=== PATIENT | male | born 1965 | race Caucasian/White ===

== ENCOUNTER 2017-02-08 14:08 | Emergency (ER) | payer MEDICARE, MEDICAID ==
[~2017-02-08] VITALS: Ht 177.8 cm; Wt 70.3 kg
[~2017-02-08 14:08] MED LIST: /ADVA50050 INH; /FENO48TA PO; /MIRT30TA PO; /MOXI40TA PO; /PANT40TA OR; /PREG100CA PO; ALBU1.25 IN; ALPR1TAB3 OR; COMBIN INH; HALO10TA4 OR; HYDROCODONE/APAP OR; IBUP800T OR; METH-442 PO; NABU-42 PO; NEUR800T PO; OMEP40CA2 PO; PERCOCET PO; PRAV40TA2 PO; PRED10TA2 PO; SERO200T OR; SIMV40TA2 PO; TRIL135C PO; VENL100T OR; VENL225T PO; VENL75TA3 PO; VITAD1000T PO; XANA0.5T PO; spiriva PO; vitamin d; vitamind
[2017-02-08 15:35] LABS: MEAN CORPUSCULAR HEMOGLOBIN 32.1 pg (27.0-33.0); MEAN CORPUSCULAR HGB CONC 35.3 g/dl (32.0-36.5); MEAN CORPUSCULAR VOLUME 91.1 fl (80.0-96.0); RED CELL DISTRIBUTION WIDTH 12.5 % (11.5-14.5); WHITE BLOOD COUNT 9.6 K/mm3 (4.0-10.0)
[2017-02-08 15:44] LABS: ALBUMIN 3.9 GM/DL (3.2-5.2); ALBUMIN/GLOBULIN RATIO 1.39 (1.00-1.93); ALKALINE PHOSPHATASE 112 U/L (45-117); ALT/SGPT 20 U/L (12-78); ANION GAP 7 MEQ/L (8-16); AST/SGOT 10 U/L (15-37); BILIRUBIN,DIRECT 0.2 MG/DL (0.0-0.2); BILIRUBIN,TOTAL 0.5 MG/DL (0.2-1.0); BLOOD UREA NITROGEN 8 MG/DL (7-18); CALCIUM LEVEL 9.1 MG/DL (8.5-10.1); CARBON DIOXIDE LEVEL 33 MEQ/L (21-32); CHLORIDE LEVEL 103 MEQ/L (98-107); CREATININE FOR GFR 0.63 MG/DL (0.70-1.30); GLOMERULAR FILTRATION RATE > 60.0 (>56); GLUCOSE, FASTING 96 MG/DL (70-105); METHADONE URINE NEGATIVE (NEGATIVE); POTASSIUM SERUM 3.9 MEQ/L (3.5-5.1); SODIUM LEVEL 143 MEQ/L (136-145); TOTAL PROTEIN 6.7 GM/DL (6.4-8.2)
[2017-02-08 16:53] VITALS: BP 125/82
== END 2017-02-08 17:19 | disposition home or self-care (01) ==
LOC: M ED 15:24
DX: F43.0 Acute stress reaction (principal); F41.1 Generalized anxiety disorder; I10 Essential (primary) hypertension; J45.909 Unspecified asthma, uncomplicated; R56.9 Unspecified convulsions; E78.00 Pure hypercholesterolemia, unspecified; F31.9 Bipolar disorder, unspecified; F43.10 Post-traumatic stress disorder, unspecified; F60.9 Personality disorder, unspecified; K92.9 Disease of digestive system, unspecified; F17.200 Nicotine dependence, unspecified, uncomplicated; Z79.899 Other long term (current) drug therapy
CPT/HCPCS: 36415; 80048; 80076; 80306; 84443; 85027; 99285; G0480

== ENCOUNTER → 2018-05-05 | Outpatient (CLI) | payer MEDICARE, MEDICAID ==
[2018-05-05 14:54] LABS: ERYTHROCYTE SEDIMENTATION RATE 6 mm/hr (0-20)
[2018-05-05 15:00] LABS: C REACTIVE PROTEIN QUANTITATIV 3.84 MG/DL (0.00-0.30)
== END ==
LOC: M LAB 13:37
DX: M54.41 Lumbago with sciatica, right side (principal)
CPT/HCPCS: 71046

== ENCOUNTER → 2018-05-26 | Outpatient (CLI) | payer MEDICARE, MEDICAID | LOC: M RAD 13:20 | DX: R93.8 Abnormal findings on diagnostic imaging of other specified body structures (principal) | CPT/HCPCS: 74019 ==

== ENCOUNTER → 2018-06-02 | Outpatient (CLI) | payer MEDICARE, MEDICAID ==
[~2018-06-02] MED LIST changes: -/ADVA50050 INH; -/FENO48TA PO; -/MIRT30TA PO; -/MOXI40TA PO; -/PANT40TA OR; -/PREG100CA PO; -ALBU1.25 IN; -ALPR1TAB3 OR; -COMBIN INH; -HALO10TA4 OR; -HYDROCODONE/APAP OR; -IBUP800T OR; +ISOVUE-370 76% 100ML VIAL (Q9967) As Ordered; -METH-442 PO; -NABU-42 PO; -NEUR800T PO; -OMEP40CA2 PO; -PERCOCET PO; -PRAV40TA2 PO; -PRED10TA2 PO; -SERO200T OR; -SIMV40TA2 PO; -TRIL135C PO; -VENL100T OR; -VENL225T PO; -VENL75TA3 PO; -VITAD1000T PO; -XANA0.5T PO; -spiriva PO; -vitamin d; -vitamind
== END ==
LOC: M RAD 09:40
DX: R93.5 Abnormal findings on diagnostic imaging of other abdominal regions, including retroperitoneum (principal); R06.02 Shortness of breath; R91.8 Other nonspecific abnormal finding of lung field; J43.9 Emphysema, unspecified; J84.10 Pulmonary fibrosis, unspecified; R59.0 Localized enlarged lymph nodes
CPT/HCPCS: Q9967

== ENCOUNTER 2018-07-10 10:37 | Day surgery (SDC) | payer MEDICARE, MEDICAID ==
[2018-07-10] MEDS ORDERED: NS 1,000 ML IV (10:45)
[2018-07-10] MEDS ORDERED: KETOROLAC 60 MG/2 ML VIAL (J1885) As Ordered (11:26)
[2018-07-10] MEDS ORDERED: GLYCOPYRROLATE INJ 0.2 MG/ML 2 ML VIAL As Ordered (11:26)
[2018-07-10] MEDS ORDERED: dexameTHASONE 4 MG/ML 1ML VIAL (J1100) As Ordered (11:26)
[2018-07-10] MEDS ORDERED: ONDANSETRON 4MG/2ML VIAL (J2405) As Ordered (11:26)
[2018-07-10] MEDS ORDERED: MIDAZOLAM INJ 2 MG/2 ML VIAL (J2250) As Ordered (11:26)
[2018-07-10] MEDS ORDERED: HYDROmorphone HCL 2 MG/ML 1ML VIAL (J1170) As Ordered (11:26)
[2018-07-10] MEDS ORDERED: PROPOFOL 200 MG/20 ML VIAL As Ordered ×4 (11:26→12:29)
[2018-07-10] MEDS ORDERED: fentaNYL 100 MCG/2 ML INJECTION (J3010) As Ordered (11:26)
[2018-07-10] MEDS ORDERED: NEOSTIGMINE 10 MG/10 ML VIAL (J2710) As Ordered (11:26)
[2018-07-10] MEDS ORDERED: LIDOCAINE 2% INJ 100 MG/5 ML SDV (FOR ANES.) As Ordered ×2 (11:26→12:12)
[2018-07-10] MEDS ORDERED: ALBUTEROL SULFATE 2.5 MG/0.5 ML INH NEB SOLN As Ordered (11:54)
[2018-07-10] MEDS ORDERED: ALBUTEROL SULFATE 2.5 MG/0.5 ML INH NEB SOLN INH (12:00)
== END 2018-07-10 13:26 | disposition home or self-care (01) ==
LOC: M OPP 10:37
DX: T18.2XXA Foreign body in stomach, initial encounter (principal); K29.70 Gastritis, unspecified, without bleeding; K21.9 Gastro-esophageal reflux disease without esophagitis; R12 Heartburn; F41.9 Anxiety disorder, unspecified; F31.9 Bipolar disorder, unspecified; F43.10 Post-traumatic stress disorder, unspecified; F60.9 Personality disorder, unspecified; R56.9 Unspecified convulsions; J45.909 Unspecified asthma, uncomplicated; J44.9 Chronic obstructive pulmonary disease, unspecified; G47.30 Sleep apnea, unspecified; R06.83 Snoring; F17.210 Nicotine dependence, cigarettes, uncomplicated; Z79.899 Other long term (current) drug therapy
CPT/HCPCS: 43247

== ENCOUNTER → 2018-08-18 | Day surgery (SDC) | payer MEDICARE, MEDICAID ==
[~2018-08-18] MED LIST changes: -ISOVUE-370 76% 100ML VIAL (Q9967) As Ordered; +LIDOCAINE 2% INJ 100 MG/5 ML SDV (FOR ANES.) As Ordered; +NS 1,000 ML IV; +PROPOFOL 200 MG/20 ML VIAL As Ordered
== END | disposition home or self-care (01) ==
LOC: M OPP 08:26
DX: Z12.11 Encounter for screening for malignant neoplasm of colon (principal); Z53.9 Procedure and treatment not carried out, unspecified reason

== ENCOUNTER → 2019-02-20 | Outpatient (CLI) | payer MEDICARE, MEDICAID ==
[~2019-02-20] MED LIST changes: +ADVA1AER2 INH; +ALBU1.25 IN; +ALPR1TAB3 OR; +ALPR2TAB3 PO; +AVEL1TAB2 PO; +BANO25TA PO; +COMBIN INH; +FLOM0.4C39 PO; +HALO10TA4 OR; +HALO5TA PO; +HYDR50TA70 PO; +HYDRO50TAB PO; +HYDROCODONE/APAP OR; +IBUP800T OR; -LIDOCAINE 2% INJ 100 MG/5 ML SDV (FOR ANES.) As Ordered; +LYRI100C PO; +METH-442 PO; +MIRT1TAB21 PO; +NABU-42 PO; +NEUR800T PO; -NS 1,000 ML IV; +OMEP-221 PO; +OMEP40CA2 PO; +OXYC1TAB23 PO; +PRAV40TA2 PO; +PRED10TA2 PO; +PROAAER10 INH; -PROPOFOL 200 MG/20 ML VIAL As Ordered; +PROT1TAB2 OR; +QUET1TAB9 PO; +SERO200T OR; +SIMV40TA2 PO; +TIOT18INH INH; +TRAM50TA2 PO; +TREL1AER IN; +TRIC1TAB PO; +TRIL135C PO; +VENL-142 PO; +VENL100T OR; +VENL150C43 PO; +VENL225T25 PO; +VITA100066 PO; +VITAD1000T PO; +XANA0.5T PO; +spiriva PO; +vitamin d; +vitamind
[2019-02-20 15:56] LABS: CHOLESTEROL LEVEL 207 MG/DL (<200); CHOLESTEROL RISK RATIO 4.224 (<5); CPK CREATINE PHOSPHOKINASE 70 U/L (39-308); HDL CHOLESTEROL 49 MG/DL (>40); LDL CHOLESTEROL 131 MG/DL (<100); MB/CK RELATIVE INDEX 3.43 (< OR =4); NON-HDL-C 158 MG/DL; TRIGLYCERIDES LEVEL 137 MG/DL (<150); TROPONIN I < 0.02 NG/ML (< 0.10)
[2019-02-20 15:57] LABS: HEMOGLOBIN A1c 5.7 %
== END ==
LOC: M LAB 15:03
PROVIDERS: ATTEND Internal Medicine
DX: R07.89 Other chest pain (principal); N40.1 Benign prostatic hyperplasia with lower urinary tract symptoms; R73.03 Prediabetes
CPT/HCPCS: 36415; 80061; 82550; 82553; 83036; 84484; 93005; G0463

== ENCOUNTER → 2019-06-26 | Outpatient (REF) | payer MEDICARE, MEDICAID ==
[~2019-06-26] MED LIST changes: +HYDR1TAB33 PO; -HYDRO50TAB PO; -QUET1TAB9 PO; +QUET200T2 PO
[2019-06-26 17:37] LABS: FREE T4 1.1 NG/DL (0.76-1.46); THYROID STIMULATING HORMONE 2.9 uIU/ML (0.358-3.740)
== END ==
LOC: M SFHCPLAZ 13:58
DX: I24.9 Acute ischemic heart disease, unspecified (principal); R73.03 Prediabetes
CPT/HCPCS: 36415; 84439; 84443; G0463

== ENCOUNTER 2021-05-25 11:02 | Inpatient (IN) | payer MEDICARE, MEDICAID ==
[~2021-05-25] VITALS: Ht 175.3 cm; Wt 58.5 kg
[~2021-05-25 11:02] MED LIST changes: -TREL1AER IN; +TREL1AER INH
[2021-05-25] MEDS ORDERED: methylPREDNISolone 125MG 2ML VIAL IV ONE (11:30)
--- NOTE | 2021-05-25 11:30 | REP ---
INDICATION: DYSPNEA/COUGH COMPARISON: 05/05/2018 TECHNIQUE: Portable AP view of the chest FINDINGS: Diffuse advanced COPD/emphysematous changes and scattered fibrosis/scarring are noted and small superimposed areas of basilar airspace disease are suspected. No definite effusion. No pneumothorax. IMPRESSION: Progressive advanced chronic changes with suspected superimposed small bibasilar airspace disease. <Electronically signed by Geo Stiles > 05/25/21 [id number]
[2021-05-25] MEDS: COMBIVENT RESPIMAT 100-20MCG INHALER 4GM INH SCH ×4 (11:44→20:06)
[2021-05-25 11:45] LABS: VENOUS HCO3 26.9 MEQ/L (23.0-27.0); VENOUS O2 SATURATION 86.7 % (60.0-80.0); VENOUS PARTIAL PRESSURE CO2 46.7 mmHg (38.0-50.0); VENOUS PARTIAL PRESSURE O2 53.2 mmHg (30.0-50.0); VENOUS PH 7.378 UNITS (7.330-7.430); VENOUS STANDARD HCO3 24.9 MEQ/L; VENOUS TOTAL CO2 28.3 MEQ/L (24.0-28.0)
[2021-05-25 11:49] LABS: BASO % 0.1 % (0.0-1.0); HEMATOCRIT 53.2 % (42.0-52.0); HEMOGLOBIN 18.2 g/dl (13.5-17.5); LYMPH # 0.8 10^3/uL (1.5-5.0); LYMPH % 4.9 % (24.0-44.0); MEAN CORPUSCULAR HEMOGLOBIN 29.2 pg (27.0-33.0); MEAN CORPUSCULAR HGB CONC 34.2 g/dl (32.0-36.5); MEAN CORPUSCULAR VOLUME 85.3 fl (80.0-96.0); MONO # 1.8 10^3/uL (0.0-0.8); MONO % 10.9 % (2.0-8.0); NEUTROPHILS # 13.9 10^3/uL (1.5-8.5); NEUTROPHILS % 83.6 % (36.0-66.0); PLATELET COUNT, AUTOMATED 257 10^3/uL (150-450); RED BLOOD COUNT 6.24 10^6/uL (4.30-6.10)
[2021-05-25 11:50] LABS: WHITE BLOOD COUNT 16.7 10^3/uL (4.0-10.0)
[2021-05-25 12:25] LABS: ALBUMIN 3.5 GM/DL (3.2-5.2); BILIRUBIN,DIRECT 0.1 MG/DL (0.0-0.2); BILIRUBIN,TOTAL 0.4 MG/DL (0.2-1.0); THYROID STIMULATING HORMONE 0.912 uIU/ML (0.358-3.740); TOTAL PROTEIN 6.8 GM/DL (6.4-8.2)
[2021-05-25] MEDS ORDERED: ISOVUE-370 76% 100ML VIAL As Ordered ONE (12:42)
[2021-05-25 13:20] LABS: RSV AMPLIFICATION NEGATIVE (NEGATIVE)
--- NOTE | 2021-05-25 14:18 | REP ---
INDICATION: hypoxia COMPARISON: Multiple the latest 06/02/2018 a standard contrast-enhanced chest CT TECHNIQUE: CT angiography of the chest after the intravenous administration of 75 cc of Isovue 370. Attention pulmonary arteries. FINDINGS: There is excellent visualization of the pulmonary arterial vasculature. There are no focal filling defects present that would be considered consistent with acute pulmonary emboli. There are no pleural or pericardial effusions. There is mediastinal and hilar adenopathy which appears increased. The right infrahilar node seen previously to measure 1.3 cm today measures 2.5 cm. Left hilar adenopathy has also increased along with increased subcarinal adenopathy. The imaged upper abdomen and imaged osseous structures appear unchanged. The thoracic aorta appears stable. Evaluation of the lung call again shows advanced emphysematous changes. There are parenchymal bulla and pleural blebs seen with new patchy asymmetric parenchymal opacities particularly in the lung bases and right greater than left. There are multiple pulmonary nodules which appear stable, however, the new asymmetric parenchymal opacities have obscured some of the previously recognized somewhat spiculated nodules and certainly could obscure new abnormal nodules. IMPRESSION: 1. New asymmetric lung field opacities superimposed upon chronic changes as described above and suspicious for infectious etiology. Certainly, neoplastic change cannot be ruled out. 2. Advanced chronic lung field changes as described above. 3. Increased adenopathy as described above. 4. There is no evidence of a pulmonary embolus. 5. Other findings as described above. <Electronically signed by Manan Chahal > 05/25/21 [id number]
[2021-05-25] MEDS ORDERED: cefTRIAXone SOD 1 GM in D5W MINI-BAG PLUS 50 ML IV ONE (14:20)
[2021-05-25] MEDS ORDERED: AZITHROMYCIN INJ 500 MG, VIAL MATE ADAPTER 1 EACH in NS 250 ML IV ONE (14:30)
[2021-05-25] MEDS ORDERED: COMBAER6 INH (14:34)
[2021-05-25] MEDS ORDERED: ATRO0.063 INH (14:34)
[2021-05-25] MEDS ORDERED: ACETAMINOPHEN TAB 650MG DOSE (2X325MG) PO PRN (16:55)
[2021-05-25] MEDS ORDERED: MOM 30ML SUSPENSION UDC PO PRN (16:55)
[2021-05-25] MEDS ORDERED: hydrOXYzine 50 MG TAB PO PRN (17:00)
[2021-05-25] MEDS ORDERED: IPRATROPIUM HFA INHALER 12.9 GRAMS (ATROVENT HFA) INH SCH (17:00)
[2021-05-25] MEDS ORDERED: ALBUTEROL 90 MCG/ACT 8GM HFA INHALER INH PRN (17:00)
--- NOTE | 2021-05-25 17:42 | HPEPDOC ---
[facility] Medical History & Physical Date of Admission May 25, 2021 Date of Service: May 25, 2021 History and Physical CHIEF COMPLAINT: Shortness of breath HISTORY OF PRESENT ILLNESS: This 65-year-old male with a past medical history of COPD not on home O2, AHMET, hyperlipidemia, myocardial infarction, polysubstance abuse, presented to the ER with acute worsening of shortness of breath and wheezing. Patient was found to be hypoxic and required 7L via NC to maintain saturation above 90%. Found to have WBC 16.7. Hgb 18.2, hct 53.2. CXR c/w advanced COPD changes and suspected pneumonia. CT imaging findings concerning for infection in addition to malignancy, based on increased hilar adenopathy (increased R infrahilar LN 1.3 to 2.5cm), as well as new parenchymal opacities/spiculated nodules. Patient received 125 mg IV solumedrol, 1g IV ceftriaxone, 500 mg IV azithromycin and combivent. Patient states that he is uncomfortable being in the hospital and is asking if he can leave tomorrow. Patient denies any chest pain, palpitations, nausea, vomiting, or diarrhea. She reports approximately 10 pound weight loss in the last 2 months. Patient will be admitted to hospitalist service and to PCU for the management of acute COPD exacerbation secondary to community-acquired pneumonia. PAST MEDICAL HISTORY: COPD, not O2 dependent, GOLD IV AHMET non compliant with CPAP CAD Cocaine and gabapenting abuse (snorting) Lumbago with spinal stenosis PTSD Bipolar disorder GERD Anxiety Nicotine dependence PAST SURGICAL HISTORY: Appendectomy Dental extraction Umbilical hernia repair 01/2016 SOCIAL HISTORY: Long standing smoker 50+ years Patient denies etoh use Patient denies illicit drug use FAMILY HISTORY: Reviewed with patient, no relevant family history provided ALLERGIES: Please see below. REVIEW OF SYSTEMS: 10 point ROS conducted, relevant findings are noted in the HPI HOME MEDICATIONS: Please see below. PHYSICAL EXAMINATION: VITAL SIGNS: please see below General: Very thin, cachectic and emaciated-looking man acutely short of breath, unable to speak in full sentences HEENT: PERRLA, EOMI, sclerae clear Neck: supple, normal ROM, no JVD Respiratory: lungs CTAB, no wheeze, no rales, no crackles CVS: RRR, normal S1, S2, no murmurs Abdo: soft, no masses, no hepatosplenomegaly, BS+, no rebound tenderness Extremities: no edema, pulses 2+ MSK: no joint deformities, normal ROM Neuro: no focal neuro deficits, moving all 4 extremities, CN2-12 intact. Strength 5/5 in all 4 extremities. No nystagmus. Psych: calm, cooperative, AAO x 3 LABORATORY DATA: See below. IMAGING: CTA chest (05/25/21): 1. New asymmetric lung field opacities superimposed upon chronic changes as described above and suspicious for infectious etiology. Certainly, neoplastic change cannot be ruled out. 2. Advanced chronic lung field changes as described above. 3. Increased adenopathy as described above. 4. There is no evidence of a pulmonary embolus. 5. Other findings as described above. CXR (05/25/21): FINDINGS: Diffuse advanced COPD/emphysematous changes and scattered fibrosis/scarring are noted and small superimposed areas of basilar airspace disease are suspected. No definite effusion. No pneumothorax. IMPRESSION: Progressive advanced chronic changes with suspected superimposed small bibasilar airspace disease. MICROBIOLOGY: Please see below. ASSESSMENT: This 65-year-old male with a past medical history of COPD not on home O2, AHMET, hyperlipidemia, myocardial infarction, polysubstance abuse, presented to the ER with acute worsening of shortness of breath and wheezing. Patient was found to be hypoxic and required 7L via NC to maintain saturation above 90%. Found to have WBC 16.7. Hgb 18.2, hct 53.2. CXR c/w advanced COPD changes and suspected pneumonia. CT imaging findings concerning for infection in addition to malignancy, based on increased hilar adenopathy (increased R infrahilar LN 1.3 to 2.5cm), as well as new parenchymal opacities/spiculated nodules. Patient received 125 mg IV solumedrol, 1g IV ceftriaxone, 500 mg IV azithromycin and combivent. Patient states that he is uncomfortable being in the hospital and is asking if he can leave tomorrow. Patient denies any chest pain, palpitations, nausea, vomiting, or diarrhea. She reports approximately 10 pound weight loss in the last 2 months. Patient will be admitted to hospitalist service and to PCU for the management of acute COPD exacerbation secondary to community-acquired pneumonia. . PLAN: Acute hypoxic respiratory failure 2/2 acute COPD exacerbation and community acquired pneumonia - hypoxic, 7L to maintain Sat > 90%. Not O2 dependent at home. Not retaining CO2 on VBG - s/p solumedrol, ceftriaxone, azithromycin, combivent in ER - resume home inhalers - c/w solumedrol 60 mg IV q8h - c/w ceftriaxone, azithromycin - check sputum culture, legionella ag, strep pneumo ag - f/u blood cultures Polycythemia - takes ASA - check serum EPO and SUMI mutations Hx of CAD? - resume asa, and plavix - resume statin - Had a stress test in 05/2019, per PCP note negative for RWMA Suspected lung malignancy - patient is cachectic Protein calorie malnutrition - BMI 17.5 - dietary eval ordered Dispo: admission expect to last > 2 midnights Vital Signs Vital Signs Date Time Temp Pulse Resp B/P (MAP) Pulse Ox O2 Delivery O2 Flow Rate FiO2 05/25/21 15:15 84 24 140/89 (106) 89 Nasal Cannula 7.0 05/25/21 12:30 35 05/25/21 11:02 99.1 Laboratory Data Labs 24H Laboratory Tests 2 05/25/21 11:35: Immature Granulocyte % (Auto) 0.5, Neutrophils (%) (Auto) 83.6H, Lymphocytes (%) (Auto) 4.9L, Monocytes (%) (Auto) 10.9H, Eosinophils (%) (Auto) 0.0, Basophils (%) (Auto) 0.1, Neutrophils # (Auto) 13.9H, Lymphocytes # (Auto) 0.8L, Monocytes # (Auto) 1.8H, Eosinophils # (Auto) 0.0, Basophils # (Auto) 0.0, Nucleated Red Blood Cells % (auto) 0.0, Blood Gas Bicarbonate Standard 24.9, Venous Blood pH 7.378, Venous Blood Partial Pressure CO2 46.7, Venous Blood Partial Pressure O2 53.2H, Venous Blood Total Carbon Dioxide 28.3H, Venous Blood HCO3 26.9, Venous Blood Oxygen Saturation 86.7H, Venous Blood Base Excess 1.0, Lactic Acid Level 1.7, Total Bilirubin 0.4, Direct Bilirubin 0.1, Aspartate Amino Transf (AST/SGOT) 52H, Alanine Aminotransferase (ALT/SGPT) 50, Alkaline Phosphatase 92, TT-Pkb-Z-Type Natriuretic Peptide 1460H, Total Protein 6.8, Albumin 3.5, Albumin/Globulin Ratio 1.1, Thyroid Stimulating Hormone (TSH) 0.912, Coronavirus (COVID-19)(PCR) NEGATIVE, Influenza Type A (RT-PCR) NEGATIVE, Influenza Type B (RT-PCR) NEGATIVE, Respiratory Syncytial Virus (PCR) NEGATIVE 05/25/21 11:46: POC Glucose (Misc Panel) 120H, POC Sodium (Misc Panel) 134L, POC Potassium (Misc Panel) 4.3, POC Chloride (Misc Panel) 95L, POC Total CO2 (Misc Panel) 25.0, POC Blood Urea Nitrogen (Misc Panel 17, POC Ionized Calcium (Misc Panel) 4.5, POC Creatinine (Misc Panel) 0.6, POC Hematocrit (Misc Panel) 55.0H 05/25/21 11:50: POC Troponin I (Misc) 0.01 CBC/BMP Laboratory Tests 05/25/21 11:35 Microbiology Microbiology 05/25/21 Blood Culture, Received Pending 05/25/21 Blood Culture, Received Pending Home Medications Scheduled Fluticasone/Umeclidin/Vilanter (Trelegy Ellipta 100-62.5-25) 1 Aer Aer, 1 PUFF INH DAILY Haloperidol (Haloperidol) 5 Mg Tab, 5 MG PO DAILY Ipratropium [place] (Atrovent Hfa) 12.9 Gm Hfa.aer.ad, 2 PUFF INH QID Ipratropium/Albuterol Sulfate (Combivent Respimat 20-100 Mcg) 4 Gm Mist.inhal, 1 PUFF INH Q6H Venlafaxine HCl (Venlafaxine HCl ER) 150 Mg Cap, 300 MG PO DAILY Scheduled PRN Albuterol Sulfate (Proair Hfa) 108 Mcg/Act Aer, 2 PUFFS INH Q4H PRN for SHORTN ESS OF BREATH Hydroxyzine HCl (Hydroxyzine HCl) 50 Mg Tab, 100 MG PO QID PRN for ANXIETY Allergies Coded Allergies: No Known Allergies (Verified , 07/09/18) A-FIB/CHADSVASC A-FIB History Current/History of A-Fib/PAF?: No Current PO Anticoag Therapy: No INEZ MOE MD May 25, 2021 17:42
[2021-05-25] MEDS: SYMBICORT 80/4.5MCG INHALER 6GM INH SCH ×2 (19:54→20:00)
[2021-05-25] MEDS: methylPREDNISolone 125MG 2ML VIAL IV SCH (20:00)
[2021-05-25] MEDS: DOCUSATE SODIUM 100MG CAPSULE PO SCH (20:19)
[2021-05-25 21:00] VITALS: BP 128/86
[2021-05-25 22:00] VITALS: BP 128/86
[2021-05-26] VITALS (10 sets, daily range): BP systolic 123–148; BP diastolic 80–88; O2SAT 88–94
[2021-05-26] MEDS: COMBIVENT RESPIMAT 100-20MCG INHALER 4GM INH SCH ×2 (04:33→08:00)
[2021-05-26 04:36] LABS: BASO % 0.2 % (0.0-1.0); HEMATOCRIT 49.2 % (42.0-52.0); HEMOGLOBIN 16.9 g/dl (13.5-17.5); LYMPH # 0.7 10^3/uL (1.5-5.0); LYMPH % 5.4 % (24.0-44.0); MEAN CORPUSCULAR HEMOGLOBIN 29.3 pg (27.0-33.0); MEAN CORPUSCULAR HGB CONC 34.3 g/dl (32.0-36.5); MEAN CORPUSCULAR VOLUME 85.4 fl (80.0-96.0); MONO % 8.3 % (2.0-8.0); NEUTROPHILS # 10.6 10^3/uL (1.5-8.5); NEUTROPHILS % 85.7 % (36.0-66.0); PLATELET COUNT, AUTOMATED 238 10^3/uL (150-450); RED BLOOD COUNT 5.76 10^6/uL (4.30-6.10); WHITE BLOOD COUNT 12.3 10^3/uL (4.0-10.0)
[2021-05-26 05:10] LABS: ALT/SGPT 46 U/L (12-78); BILIRUBIN,TOTAL 0.3 MG/DL (0.2-1.0); BLOOD UREA NITROGEN 12 MG/DL (7-18); CALCIUM LEVEL 8.6 MG/DL (8.5-10.1); CARBON DIOXIDE LEVEL 32 MEQ/L (21-32); CHLORIDE LEVEL 98 MEQ/L (98-107); GLOMERULAR FILTRATION RATE > 60.0 (>56); GLUCOSE, FASTING 141 MG/DL (70-100); MAGNESIUM LEVEL 1.9 MG/DL (1.8-2.4); POTASSIUM SERUM 4.1 MEQ/L (3.5-5.1); SODIUM LEVEL 133 MEQ/L (136-145); TOTAL PROTEIN 6.1 GM/DL (6.4-8.2)
[2021-05-26] MEDS: methylPREDNISolone 125MG 2ML VIAL IV SCH ×3 (05:18→20:59)
[2021-05-26] MEDS: SYMBICORT 80/4.5MCG INHALER 6GM INH SCH (08:10)
[2021-05-26 09:38] LABS: ABG BASE EXCESS 8.5 (-2.0-2.0); ABG HCO3 34.7 MEQ/L (22.0-26.0); ABG O2 SATURATION 93.5 % (95.0-99.0); ABG PARTIAL PRESSURE CO2 51.8 mmHg (35.0-45.0); ABG PARTIAL PRESSURE O2 65.7 mmHg (75.0-100.0); ABG STANDARD HCO3 32.2 MEQ/L (22.0-26.0); ABG TOTAL CO2 36.3 MEQ/L (22.0-29.0); ABG pH (ARTERIAL) 7.444 UNITS (7.350-7.450)
--- NOTE | 2021-05-26 09:51 | REP ---
INDICATION: hypoxia. COMPARISON: 05/25/2021. TECHNIQUE: Single portable AP view of the chest was performed. FINDINGS: There is increased patchy parenchymal opacity in the right lung base compared to the prior study representing mildly increased atelectasis or infiltrate. Mild interstitial and alveolar opacities in the left lung base are stable. The heart is normal in size. The mediastinal silhouette is unchanged. IMPRESSION: Mild increase in right base atelectasis/infiltrate. <Electronically signed by Cristóbal Lopez > 05/26/21 0998
[2021-05-26] MEDS: haloperidoL 5 MG TAB PO SCH (10:56)
[2021-05-26] MEDS: DOCUSATE SODIUM 100MG CAPSULE PO SCH ×2 (10:56→21:00)
[2021-05-26] MEDS: VENLAFAXINE **XR** 75MG CAPSULE PO SCH (10:56)
[2021-05-26] MEDS: ENOXAPARIN 40MG/0.4ML SYRINGE (J1650 PER 10MG) SC SCH (10:57)
[2021-05-26] MEDS: IPRATROPIUM 0.5MG/ALBUTEROL 2.5MG INH SOL UD 3ML (DUONEB) NEB SCH ×3 (13:53→20:24)
--- NOTE | 2021-05-26 13:53 | CR ---
PULMONARY CONSULTATION DATE: 05/26/2021 REASON FOR CONSULTATION: Hypoxia. HISTORY OF PRESENT ILLNESS: This is a 55-year-old cachetic looking elderly gentleman who presents to [facility] ER with a 2.5 month history of worsening cough productive of green sputum. He states he attributed this to cutting back on smoking. He states he has been taking more puffs from his inhalers and has tried Robitussin [id number], none of which have alleviated his cough. He states that he also feels some chest congestion. The patient states that he has also noticed some progressive shortness of breath that started in April. He states that at his baseline he is able to do all ADLs without any shortness of breath, however he is now having progressing shortness of breath with minimal exertion. REVIEW OF SYSTEMS: GENERAL: Patient does have profuse sweating at night but this is not new onset. Denies any fatigue, fever or shaking chills. He states he has had about 10 to 15 pounds of unintentional weight loss since April. HEENT: No changes in vision. No epistaxis. No difficulty swallowing, tooth abscess or neck discomfort currently. Denied any dysphagia. Patient states that he has a runny nose. CARDIAC: No chest pain or palpitations. Patient does not report any increased edema in his extremities. PULMONARY: Patient does have shortness of breath with minimal exertion as well as a cough productive of white sputum. Denies hemoptysis. GI/: Denies any vomiting, diarrhea or blood in stool. No burning or pain on urination. NEURO/PSYCH: Patient does have a history of mental health issues but his mood is appropriate on exam. Patient denies any history of seizures or tremors. No thoughts of suicidal ideation or thoughts of self-harm. PAST MEDICAL HISTORY: 1. COPD, not oxygen dependent, GOLD 4. 2. AHMET, noncompliant with CPAP. 3. Coronary artery disease. 4. Lumbago with spinal stenosis. 5. PTSD. 6. Bipolar. 7. GERD. 8. Anxiety. 9. Nicotine dependence. PAST SURGICAL HISTORY: 1. Appendectomy. 2. Dental extraction. 3. Umbilical hernia repair in 2016. SOCIAL HISTORY: Patient has smoked since the age of 7, 1 to 1 1/2 packs per day. Patient has recently tried to cut down this past November from 1 1/2 pack to now 1/2 pack per day. Patient states that he quit drinking alcohol two years ago but prior to that he drank about six packs of beer on a weekly basis. Patient denied any use of illicit drugs. He does smoke about 1 gram of marijuana daily. ENVIRONMENTAL HISTORY: Patient worked as an hand ironer for three years and was in the [employer] business for about 30 years. Patient had extensive exposure to toxic fumes and chemicals. Currently, the patient is unemployed. FAMILY HISTORY: Unable to obtain due to patient's relationship with parents. PHYSICAL EXAMINATION: VITAL SIGNS: Temperature 97.0, pulse is 74, respirations 20, blood pressure is 141/87, O2 saturation 91% on 10 liters of high flow nasal cannula. GENERAL: Patient is alert, awake and oriented. He is cachectic looking. His mood and affect are appropriate. His speech is clear, able to speak in full sentences without accessory muscle use or retractions. HEENT: Sclera clear, anicteric. Pupils equal and reactive to light. Mucous membranes are moist. No lesions seen. Tongue is midline. NECK/LYMPH: Supple neck. No tracheal deviation or mass. No evidence of bruits. Unable to palpate lymphadenopathy. Unable to palpate thyromegaly. CARDIAC: Normal S1 and S2. No significant audible murmurs, rubs or gallops. No evidence of elevated JVP. No peripheral edema. PULMONARY: Patient does have decreased breath sounds. There is egophony appreciated in the bilateral upper lobes, increased tactile fremitus and dullness to percussion at bilateral lung bases. He does have expiratory wheezing throughout. ABDOMEN: Soft, nontender and nondistended. No hepatosplenomegaly, masses, hernias palpated. EXTREMITIES: No cyanosis, bruising or calf tenderness. He does have clubbing in his nails. ASSESSMENT AND PLAN: This is a 55-year-old elderly gentleman who presents to [facility] ER with a 2.5 month history of worsening cough productive of green sputum. He also started to notice progressive shortness of breath since April. In the ER, he was hypoxic and required 7 liters through via nasal cannula to maintain his oxygen saturation above 90%. He was found to have leukocytosis as well as elevated hemoglobin and hematocrit likely in the setting of hypoxemia. His chest x-ray did show advanced airway disease and is suspicious for pneumonia. His CT imaging of his chest showed increased hilar adenopathy most prominent on the right side measuring up to 2.5 cm as well as spiculated nodules. The patient received a loading dose of Solu-Medrol and was started on Rocephin and Zithromax as well as IV Solumedrol IV q. 8 by the Hospitalist. Pulmonary was consulted this morning due to persistent hypoxia and suspicious nodules found on CT. 1. Acute on chronic COPD exacerbation. Pt has severe bullous emphysema GOLD IV in 2018 (currently non oxygen dependent). He started to have a worsening cough for the past 2.5 months with worsening progressive shortness of breath with minimal exertion in the last month. The cough is productive of thick green sputum up until yesterday. I will increase his symbicort to a higher dose and schedule him for duonebs q4h. Patient would benefit from spiriva for mcc maintenace of his COPD to reduce exacerbtions. 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 2. Pneumonia- New patchy parenchymal opacities in lung bases with mediastinal and hilar adenopathy which appear increased in size, likely reactive due to an infectious process/pneumonia; however, cannot rule out malignancy given his hx of long standing tobacco abuse. Agree with continuing antibiotics. White count is improving. Will wait for sputum grain stain and cx to result for narrowing down antibiotics. Will order a mucolytic mucociliary clearance. 3. Abnormal imaging: Chest CT angio shows multiple pulmonary nodules which appear stable, however, the new asymmetric parenchymal opacities have obscured some of the previously recognized somewhat spiculated nodules. His advanced airspace disease with bullous and blebs may also be obscuring new abnormal nodules. The last time patient followed up with pulmonary was back in 2018. Other potential etiologies given his long standing smoking history and noncompliance with outpatient follow up or getting re- scanned to follow up on his pulmonary nodules, is that this could be potential neoplastic process. If patient is willing, he would benefit from outpatient follow up and to establish care again. 4. Tobacco dependence. Smoking cessation has been discussed with the patient. The patient states that he has been cutting down and currently smoking 1/2 pack, however at this point he is not ready to quit cold turkey. 5. DVT prophylaxis with Lovenox. 6. Code status: Full. Dr. Napier; I saw the patient and participated in the burgess elements of the evaluation and the management decision process. He is known to our practice having been seen in past for his lung disease and abnormal imaging findings. He has declined workup and follow up with us and as of his last note his COPD was very severe (2018, GOLD 4). Imaging findings are some old some new and the management plan is reasonable. Recovery is likely to be protracted and he will likely remain dependent on supplimental oxygen going forward. Given the extent of underlying lung disease his prognosis is poor. JENNIFER
[2021-05-26] MEDS: TIOTROPIUM INHALER/CAPSULE (SPIRIVA) INH SCH (14:47)
--- NOTE | 2021-05-26 16:34 | ECGEPIP ---
[facility] - ED Test Date: 2021-05-25 Pat Name: CHAPARRITA OVIEDO Department: Room: - Gender: Male [employer]: : 1965 Requested By: Ana Luisa Power Order Number: [id number] Reading MD: Bhanu Solares Measurements Intervals [place]ison Rate: 92 P: 75 MD: 120 QRS: -42 QRSD: 84 T: 50 QT: 338 QTc: 417 Interpretive Statements Normal sinus rhythm Left axis deviation Comparison tracing not on file Electronically Signed on 05-26-2021 16:34:24 EDT by Bhanu Solares
[2021-05-26] MEDS: cefTRIAXone SOD 1 GM in D5W MINI-BAG PLUS 50 ML IV SCH (17:53)
[2021-05-26] MEDS: SYMBICORT 160/4.5MCG INHALER 6GM INH SCH (20:23)
[2021-05-26] MEDS: AZITHROMYCIN INJ 500 MG, VIAL MATE ADAPTER 1 EACH in NS 250 ML IV SCH (21:00)
[2021-05-26] MEDS: guaiFENesin ER 600 MG TAB PO SCH (21:00)
--- NOTE | 2021-05-26 21:32 | IPNPDOC ---
Date Seen The patient was seen on 05/26/21. Progress Note SUBJECTIVE: seen bedside. On venti mask FiO2 50%. Attempted vapotherm due to hypoxia, has deviated nasal septum and cannot sustain HF. Cough, productive of green sputum. OBJECTIVE PHYSICAL EXAMINATION: VITAL SIGNS: please see below General: Very thin, cachectic and emaciated-looking man acutely short of breath, unable to speak in full sentences HEENT: PERRLA, EOMI, sclerae clear Neck: supple, normal ROM, no JVD Respiratory: lungs CTAB, no wheeze, no rales, no crackles CVS: RRR, normal S1, S2, no murmurs Abdo: soft, no masses, no hepatosplenomegaly, BS+, no rebound tenderness Extremities: no edema, pulses 2+ MSK: no joint deformities, normal ROM Neuro: no focal neuro deficits, moving all 4 extremities, CN2-12 intact. Strength 5/5 in all 4 extremities. No nystagmus. Psych: calm, cooperative, AAO x 3 LABORATORY DATA, IMAGING STUDIES, MICROBIOLOGY: Please see below. Echocardiogram: pending report from 05/26/21 DVT prophylaxis ordered?: SCDs. TEDs. Lovenox ASSESSMENT: This 65-year-old male with a past medical history of COPD not on home O2, AHMET, hyperlipidemia, myocardial infarction, polysubstance abuse, presented to the ER with acute worsening of shortness of breath and wheezing. Patient was found to be hypoxic and required 7L via NC to maintain saturation above 90%. Found to have WBC 16.7. Hgb 18.2, hct 53.2. CXR c/w advanced COPD changes and suspected pneumonia. CT imaging findings concerning for infection in addition to malignancy, based on increased hilar adenopathy (increased R infrahilar LN 1.3 to 2.5cm), as well as new parenchymal opacities/spiculated nodules. Patient received 125 mg IV solumedrol, 1g IV ceftriaxone, 500 mg IV azithromycin and combivent. Patient states that he is uncomfortable being in the hospital and is asking if he can leave tomorrow. Patient denies any chest pain, palpitations, nausea, vomiting, or diarrhea. She reports approximately 10 pound weight loss in the last 2 months. Patient will be admitted to hospitalist service and to PCU for the management of acute COPD exacerbation secondary to community-acquired pneumonia. . PLAN: Acute hypoxic respiratory failure 2/2 acute COPD exacerbation and community acquired pneumonia Severe bullous emphysema GOLD IV - hypoxic, 7L to maintain Sat > 90%. Not O2 dependent at home. Not retaining CO2 on VBG - s/p solumedrol, ceftriaxone, azithromycin, combivent in ER - resume home inhalers - c/w solumedrol 60 mg IV q8h - c/w ceftriaxone, azithromycin - check sputum culture, legionella ag, strep pneumo ag - f/u blood cultures - pulmonary consult placed due to persistent desaturation - symbycort, spirva Polycythemia - takes ASA - check serum EPO and SUMI mutations - resolved Hx of CAD? - resume asa, and plavix - resume statin - Had a stress test in 05/2019, per PCP note negative for RWMA Suspected lung malignancy - patient is cachectic - per Dr. Chatterjee, at this stage cannot r/o malignancy - suspicious nodules on CTA - will need outpatient follow up in pulm clinic - PET CT outpatient. Protein calorie malnutrition - BMI 17.5 - dietary eval ordered Dispo: admission expect to last > 2 midnights VS, I&O, 24H, Fishbone Vital Signs/I&O Vital Signs Date Time Temp Pulse Resp B/P (MAP) Pulse Ox O2 Delivery O2 Flow Rate FiO2 05/26/21 20:00 97.6 93 28 148/84 (105) 89 High Flow Cannula 15.0 05/26/21 12:00 50 I&O- Last 24 Hours up to 6 AM 05/26/21 06:00 Intake Total 1000 ml Output Total 1100 ml Balance -100 ml Laboratory Data 24H LABS Laboratory Tests 2 05/26/21 01:30: 05/26/21 04:14: Immature Granulocyte % (Auto) 0.4, Neutrophils (%) (Auto) 85.7H, Lymphocytes (%) (Auto) 5.4L, Monocytes (%) (Auto) 8.3H, Eosinophils (%) (Auto) 0.0, Basophils (%) (Auto) 0.2, Neutrophils # (Auto) 10.6H, Lymphocytes # (Auto) 0.7L, Monocytes # (Auto) 1.0H, Eosinophils # (Auto) 0.0, Basophils # (Auto) 0.0, Nucleated Red Blood Cells % (auto) 0.0, Anion Gap 3L, Glomerular Filtration Rate > 60.0, Calcium Level 8.6, Magnesium Level 1.9, Total Bilirubin 0.3, Aspartate Amino Transf (AST/SGOT) 32, Alanine Aminotransferase (ALT/SGPT) 46, Alkaline Phosphatase 78, Total Protein 6.1L, Albumin 3.0L, Albumin/Globulin Ratio 1.0 05/26/21 09:21: Blood Gas Bicarbonate Standard 32.2H, Arterial Blood pH 7.444, Arterial Blood Partial Pressure CO2 51.8H, Arterial Blood Partial Pressure O2 65.7L, Arterial Blood Total CO2 36.3H, Arterial Blood HCO3 34.7H, Arterial Blood Base Excess 8.5H, Arterial Blood Oxygen Saturation 93.5L CBC/BMP Laboratory Tests 05/26/21 04:14 Microbiology Microbiology 05/25/21 Blood Culture - Preliminary, Resulted No growth after 24 hours . All specim... 05/25/21 Blood Culture - Preliminary, Resulted No growth after 24 hours . All specim... INEZ MOE MD May 26, 2021 21:32
[2021-05-27] VITALS (13 sets, daily range): BP systolic 124–149; BP diastolic 77–88; O2SAT 89–97
[2021-05-27] MEDS: IPRATROPIUM 0.5MG/ALBUTEROL 2.5MG INH SOL UD 3ML (DUONEB) NEB SCH ×7 (00:02→20:00)
[2021-05-27] MEDS: methylPREDNISolone 125MG 2ML VIAL IV SCH ×3 (03:37→20:46)
[2021-05-27 05:53] LABS: BASO % 0.1 % (0.0-1.0); HEMATOCRIT 48.3 % (42.0-52.0); HEMOGLOBIN 16.5 g/dl (13.5-17.5); LYMPH # 0.8 10^3/uL (1.5-5.0); LYMPH % 7.2 % (24.0-44.0); MEAN CORPUSCULAR HEMOGLOBIN 29.5 pg (27.0-33.0); MEAN CORPUSCULAR HGB CONC 34.2 g/dl (32.0-36.5); MEAN CORPUSCULAR VOLUME 86.4 fl (80.0-96.0); MONO # 0.8 10^3/uL (0.0-0.8); MONO % 7.5 % (2.0-8.0); NEUTROPHILS # 9.5 10^3/uL (1.5-8.5); NEUTROPHILS % 84.8 % (36.0-66.0); PLATELET COUNT, AUTOMATED 262 10^3/uL (150-450); RED BLOOD COUNT 5.59 10^6/uL (4.30-6.10); WHITE BLOOD COUNT 11.2 10^3/uL (4.0-10.0)
[2021-05-27 06:24] LABS: ALBUMIN 2.9 GM/DL (3.2-5.2); ALT/SGPT 55 U/L (12-78); BILIRUBIN,TOTAL 0.2 MG/DL (0.2-1.0); BLOOD UREA NITROGEN 14 MG/DL (7-18); CALCIUM LEVEL 8.8 MG/DL (8.5-10.1); CARBON DIOXIDE LEVEL 33 MEQ/L (21-32); CHLORIDE LEVEL 98 MEQ/L (98-107); GLOMERULAR FILTRATION RATE > 60.0 (>56); GLUCOSE, FASTING 133 MG/DL (70-100); POTASSIUM SERUM 4.1 MEQ/L (3.5-5.1); SODIUM LEVEL 134 MEQ/L (136-145)
[2021-05-27] MEDS: SYMBICORT 160/4.5MCG INHALER 6GM INH SCH ×3 (07:26→20:00)
[2021-05-27] MEDS: TIOTROPIUM INHALER/CAPSULE (SPIRIVA) INH SCH (07:26)
[2021-05-27] MEDS: VENLAFAXINE **XR** 75MG CAPSULE PO SCH (08:24)
[2021-05-27] MEDS: guaiFENesin ER 600 MG TAB PO SCH ×2 (08:24→20:46)
[2021-05-27] MEDS: haloperidoL 5 MG TAB PO SCH (08:24)
[2021-05-27] MEDS: ENOXAPARIN 40MG/0.4ML SYRINGE (J1650 PER 10MG) SC SCH (08:24)
[2021-05-27] MEDS: DOCUSATE SODIUM 100MG CAPSULE PO SCH ×2 (08:24→20:46)
--- NOTE | 2021-05-27 13:21 | CR ---
PULMONARY SERVICE NOTE DATE: 05/27/2021 SUBJECTIVE: The patient is seen in the progressive care unit seated at bedside. He is not complaining of any chest pain. He has less cough today and less sputum production. He does not appear to be in severe distress, but is still quite oxygen dependent. OBJECTIVE: VITAL SIGNS: His temperature is 97, pulse rate 86, respirations 22, blood pressure 132/79. INTAKE AND OUTPUT: For the past 24 hours, 2305 in and 825 out. Since midnight, 900 in and 1100 out. GENERAL APPEARANCE: At bedside, he is ill-appearing and cachectic. HEENT: Mucosa is pink. NECK: Supple. No meningismus. HEART: Sounds are regular. LUNGS: Breath sounds globally diminished. Expiratory phase is prolonged. There is diffuse expiratory wheezing, perhaps more appreciated on the left than the right lung. Chest is symmetric. Increased in its AP diameter. Moves symmetrically. No accessory muscle use at rest or with conversation. ABDOMEN: Soft. EXTREMITIES: Show muscle wasting. DIAGNOSTIC STUDIES: His white cell count is down to 11.2, hemoglobin is 16.5, hematocrit 48.3, platelet count 262,000. Differential white cell count shows 84.8% neutrophils. The electrolytes this morning sodium is 134, potassium 4.1, chloride 98, CO2 of 33, BUN is 14, creatinine 0.5, glucose 133. Liver enzymes are normal. Albumin is 2.9. Arterial blood gases performed yesterday morning showed a pH of 7.44, pCO2 of 51.8, and pO2 of 65. Chest x-ray shows hyperinflation and a diffuse interstitial pneumonitis pattern. ASSESSMENT AND PLAN: 1. Acute exacerbation of chronic obstructive pulmonary disease. The patient is responding to therapy and is tolerating increased doses of inhaled anticholinergic and steroids. There continues to be some wheeze. I would not reduce the steroid therapy as of yet. 2. Hypoxemia. Saturations are acceptable on supplemental oxygen. 3. Pneumonia. The patient has diffuse changes on chest x-ray. He is on appropriate therapy with ceftriaxone and azithromycin. 4. Pulmonary cachexia. The patient is eating. Protein-calorie malnutrition is an issue given the advanced nature of the obstructive lung disease. I have made no additional changes to his medication regime at this point. We will continue closely monitoring clinically.
--- NOTE | 2021-05-27 15:24 | IPNPDOC ---
Date Seen The patient was seen on 05/27/21. Progress Note SUBJECTIVE: does not appear to be in distress, but is still oxygen dependent. eating, sitting upright at bedside. OBJECTIVE PHYSICAL EXAMINATION: VITAL SIGNS: please see below General: Very thin, cachectic and emaciated-looking man acutely short of breath, unable to speak in full sentences HEENT: PERRLA, EOMI, sclerae clear Neck: supple, normal ROM, no JVD Respiratory: lungs CTAB, no wheeze, no rales, no crackles CVS: RRR, normal S1, S2, no murmurs Abdo: soft, no masses, no hepatosplenomegaly, BS+, no rebound tenderness Extremities: no edema, pulses 2+ MSK: no joint deformities, normal ROM Neuro: no focal neuro deficits, moving all 4 extremities, CN2-12 intact. Strength 5/5 in all 4 extremities. No nystagmus. Psych: calm, cooperative, AAO x 3 LABORATORY DATA, IMAGING STUDIES, MICROBIOLOGY: Please see below. Echocardiogram: pending report from 05/26/21 DVT prophylaxis ordered?: SCDs. TEDs. Lovenox ASSESSMENT: This 65-year-old male with a past medical history of COPD not on home O2, AHMET, hyperlipidemia, myocardial infarction, polysubstance abuse, presented to the ER with acute worsening of shortness of breath and wheezing. Patient was found to be hypoxic and required 7L via NC to maintain saturation above 90%. Found to have WBC 16.7. Hgb 18.2, hct 53.2. CXR c/w advanced COPD changes and suspected pneumonia. CT imaging findings concerning for infection in addition to malignancy, based on increased hilar adenopathy (increased R infrahilar LN 1.3 to 2.5cm), as well as new parenchymal opacities/spiculated nodules. Patient received 125 mg IV solumedrol, 1g IV ceftriaxone, 500 mg IV azithromycin and combivent. Patient states that he is uncomfortable being in the hospital and is asking if he can leave tomorrow. Patient denies any chest pain, palpitations, nausea, vomiting, or diarrhea. She reports approximately 10 pound weight loss in the last 2 months. Patient will be admitted to hospitalist service and to PCU for the management of acute COPD exacerbation secondary to community-acquired pneumonia. . PLAN: Acute hypoxic respiratory failure 2/2 acute COPD exacerbation and community acquired pneumonia Severe bullous emphysema GOLD IV - hypoxic, 7L to maintain Sat > 90%. Not O2 dependent at home. Not retaining CO2 on VBG - s/p solumedrol, ceftriaxone, azithromycin, combivent in ER - resume home inhalers - c/w solumedrol 60 mg IV q8h - c/w ceftriaxone, azithromycin - check sputum culture, legionella ag, strep pneumo ag - f/u blood cultures - pulmonary consult placed due to persistent desaturation - symbycort, spirva Polycythemia - takes ASA - check serum EPO and SUMI mutations - resolved Hx of CAD? - resume asa, and plavix - resume statin - Had a stress test in 05/2019, per PCP note negative for RWMA Suspected lung malignancy - patient is cachectic - per Dr. Chatterjee, at this stage cannot r/o malignancy - suspicious nodules on CTA - will need outpatient follow up in pulm clinic - PET CT outpatient. Protein calorie malnutrition - BMI 17.5 - dietary eval ordered Dispo: admission expect to last > 2 midnights VS, I&O, 24H, Fishbone Vital Signs/I&O Vital Signs Date Time Temp Pulse Resp B/P (MAP) Pulse Ox O2 Delivery O2 Flow Rate FiO2 05/27/21 08:00 15.0 05/27/21 07:00 90 05/27/21 04:00 97.4 86 22 133/79 (97) High Flow Cannula 05/26/21 20:00 50 I&O- Last 24 Hours up to 6 AM 05/27/21 06:00 Intake Total 2815 ml Output Total 1425 ml Balance 1390 ml Laboratory Data 24H LABS Laboratory Tests 2 05/27/21 05:32: Immature Granulocyte % (Auto) 0.4, Neutrophils (%) (Auto) 84.8H, Lymphocytes (%) (Auto) 7.2L, Monocytes (%) (Auto) 7.5, Eosinophils (%) (Auto) 0.0, Basophils (%) (Auto) 0.1, Neutrophils # (Auto) 9.5H, Lymphocytes # (Auto) 0.8L, Monocytes # (Auto) 0.8, Eosinophils # (Auto) 0.0, Basophils # (Auto) 0.0, Nucleated Red Blood Cells % (auto) 0.0, Anion Gap 3L, Glomerular Filtration Rate > 60.0, Calcium Level 8.8, Magnesium Level 2.0, Total Bilirubin 0.2, Aspartate Amino Transf (AST/SGOT) 29, Alanine Aminotransferase (ALT/SGPT) 55, Alkaline Phosphatase 86, Total Protein 6.0L, Albumin 2.9L, Albumin/Globulin Ratio 0.9 CBC/BMP Laboratory Tests 05/27/21 05:32 Microbiology Microbiology 05/25/21 Blood Culture - Preliminary, Resulted No Growth after 48 hours. All Specime... 05/25/21 Blood Culture - Preliminary, Resulted No Growth after 48 hours. All Specime... INEZ MOE MD May 27, 2021 15:24
[2021-05-27] MEDS: cefTRIAXone SOD 1 GM in D5W MINI-BAG PLUS 50 ML IV SCH (17:17)
[2021-05-27] MEDS: MAALOX 30 ML SUSP *UDC PO PRN (17:21)
[2021-05-27] MEDS: AZITHROMYCIN INJ 500 MG, VIAL MATE ADAPTER 1 EACH in NS 250 ML IV SCH (20:46)
[2021-05-28] VITALS: BP 133/82
[2021-05-28] MEDS: IPRATROPIUM 0.5MG/ALBUTEROL 2.5MG INH SOL UD 3ML (DUONEB) NEB SCH ×5 (00:43→15:06)
[2021-05-28 04:00] VITALS: BP 131/74
[2021-05-28] MEDS: methylPREDNISolone 125MG 2ML VIAL IV SCH ×3 (04:31→20:54)
[2021-05-28 06:08] LABS: BASO % 0.2 % (0.0-1.0); HEMATOCRIT 48.1 % (42.0-52.0); HEMOGLOBIN 15.8 g/dl (13.5-17.5); LYMPH # 1.2 10^3/uL (1.5-5.0); LYMPH % 9.1 % (24.0-44.0); MEAN CORPUSCULAR HEMOGLOBIN 29.2 pg (27.0-33.0); MEAN CORPUSCULAR HGB CONC 32.8 g/dl (32.0-36.5); MEAN CORPUSCULAR VOLUME 88.7 fl (80.0-96.0); MONO # 1.3 10^3/uL (0.0-0.8); MONO % 9.8 % (2.0-8.0); NEUTROPHILS # 10.4 10^3/uL (1.5-8.5); NEUTROPHILS % 79.7 % (36.0-66.0); PLATELET COUNT, AUTOMATED 264 10^3/uL (150-450); RED BLOOD COUNT 5.42 10^6/uL (4.30-6.10)
[2021-05-28 06:35] LABS: ALBUMIN 2.7 GM/DL (3.2-5.2); ALT/SGPT 54 U/L (12-78); BILIRUBIN,TOTAL 0.1 MG/DL (0.2-1.0); BLOOD UREA NITROGEN 10 MG/DL (7-18); CALCIUM LEVEL 8.9 MG/DL (8.5-10.1); CARBON DIOXIDE LEVEL 33 MEQ/L (21-32); CHLORIDE LEVEL 101 MEQ/L (98-107); CREATININE FOR GFR 0.45 MG/DL (0.70-1.30); GLOMERULAR FILTRATION RATE > 60.0 (>56); GLUCOSE, FASTING 115 MG/DL (70-100); MAGNESIUM LEVEL 1.9 MG/DL (1.8-2.4); POTASSIUM SERUM 4.4 MEQ/L (3.5-5.1); SODIUM LEVEL 141 MEQ/L (136-145); TOTAL PROTEIN 5.8 GM/DL (6.4-8.2)
[2021-05-28] MEDS: SYMBICORT 160/4.5MCG INHALER 6GM INH SCH (07:39)
[2021-05-28] MEDS: TIOTROPIUM INHALER/CAPSULE (SPIRIVA) INH SCH (07:39)
[2021-05-28] MEDS: ENOXAPARIN 40MG/0.4ML SYRINGE (J1650 PER 10MG) SC SCH (07:54)
[2021-05-28] MEDS: VENLAFAXINE **XR** 75MG CAPSULE PO SCH (07:55)
[2021-05-28] MEDS: guaiFENesin ER 600 MG TAB PO SCH ×2 (07:55→20:54)
[2021-05-28] MEDS: DOCUSATE SODIUM 100MG CAPSULE PO SCH ×2 (07:55→20:54)
[2021-05-28] MEDS: haloperidoL 5 MG TAB PO SCH (07:55)
[2021-05-28 08:00] VITALS: BP 119/70
[2021-05-28 12:00] VITALS: BP 109/55
--- NOTE | 2021-05-28 12:11 | CCN ---
PULMONARY CRITICAL CARE SERVICE NOTE DATE: 05/28/2021 SUBJECTIVE: The patient is resting comfortably in bed, not particularly conversant, but awakens and answers questions. OBJECTIVE: VITAL SIGNS: Temperature 98.5, T-max for the past 24 hours 98.5. Pulse rate 95, respirations 16 and rested, blood pressure 119/70, oxygen saturation is 90% on Ventimask. HEENT: He is ill-appearing and cachectic. Oral mucosa is pink. NECK: Supple. HEART: Sounds are regular without appreciable murmur. LUNGS: Breath sounds are diminished symmetrically. There is expiratory wheeze. ABDOMEN: Soft. EXTREMITIES: Show muscle wasting. DIAGNOSTIC STUDIES: His sodium is 141, potassium 4.4, chloride 101, CO2 of 33, BUN 10, creatinine 0.45, glucose 115. White cell count is 13, hemoglobin 15.8, hematocrit 48.1, platelet count 264,000. Differential white cell count shows 74% neutrophils. Blood cultures are negative x2. MEDICATIONS: On review of medications, this is day #3 of ceftriaxone and day #3 of azithromycin. He is receiving high dose Symbicort and Spiriva and low dose Lovenox subcutaneously. IMPRESSION/PLAN: 1. Acute exacerbation of chronic obstructive pulmonary disease. The patient does appear to be responding albeit slowly. Given the extent of his underlying lung disease, his recovery is expected to be protracted. 2. Hypoxemia. Continue supplemental oxygen. 3. Pneumonia. Etiology is unclear, but community-acquired and does appear to be responding to Rocephin and Zithromax. 4. Pulmonary cachexia. The patient may need dietary supplementation.
[2021-05-28 16:00] VITALS: BP 144/89
[2021-05-28] MEDS: cefTRIAXone SOD 1 GM in D5W MINI-BAG PLUS 50 ML IV SCH (17:52)
--- NOTE | 2021-05-28 19:15 | IPNPDOC ---
Date Seen The patient was seen on 05/28/21. Progress Note SUBJECTIVE: does not appear to be in distress, but is still oxygen dependent. eating, sitting upright at bedside. OBJECTIVE PHYSICAL EXAMINATION: VITAL SIGNS: please see below General: Very thin, cachectic and emaciated-looking man acutely short of breath, unable to speak in full sentences HEENT: PERRLA, EOMI, sclerae clear Neck: supple, normal ROM, no JVD Respiratory: lungs CTAB, no wheeze, no rales, no crackles CVS: RRR, normal S1, S2, no murmurs Abdo: soft, no masses, no hepatosplenomegaly, BS+, no rebound tenderness Extremities: no edema, pulses 2+ MSK: no joint deformities, normal ROM Neuro: no focal neuro deficits, moving all 4 extremities, CN2-12 intact. Strength 5/5 in all 4 extremities. No nystagmus. Psych: calm, cooperative, AAO x 3 LABORATORY DATA, IMAGING STUDIES, MICROBIOLOGY: Please see below. Echocardiogram: pending report from 05/26/21 DVT prophylaxis ordered?: SCDs. TEDs. Lovenox ASSESSMENT: This 65-year-old male with a past medical history of COPD not on home O2, AHMET, hyperlipidemia, myocardial infarction, polysubstance abuse, presented to the ER with acute worsening of shortness of breath and wheezing. Patient was found to be hypoxic and required 7L via NC to maintain saturation above 90%. Found to have WBC 16.7. Hgb 18.2, hct 53.2. CXR c/w advanced COPD changes and suspected pneumonia. CT imaging findings concerning for infection in addition to malignancy, based on increased hilar adenopathy (increased R infrahilar LN 1.3 to 2.5cm), as well as new parenchymal opacities/spiculated nodules. Patient received 125 mg IV solumedrol, 1g IV ceftriaxone, 500 mg IV azithromycin and combivent. Patient states that he is uncomfortable being in the hospital and is asking if he can leave tomorrow. Patient denies any chest pain, palpitations, nausea, vomiting, or diarrhea. She reports approximately 10 pound weight loss in the last 2 months. Patient will be admitted to hospitalist service and to PCU for the management of acute COPD exacerbation secondary to community-acquired pneumonia. . PLAN: Acute hypoxic respiratory failure 2/2 acute COPD exacerbation and community acquired pneumonia Severe bullous emphysema GOLD IV - hypoxic, 7L to maintain Sat > 90%. Not O2 dependent at home. Not retaining CO2 on VBG - s/p solumedrol, ceftriaxone, azithromycin, combivent in ER - resume home inhalers - c/w solumedrol 60 mg IV q8h - c/w ceftriaxone, azithromycin - check sputum culture, legionella ag, strep pneumo ag - f/u blood cultures - pulmonary consult placed due to persistent desaturation - symbycort, spirva Polycythemia - takes ASA - check serum EPO and SUMI mutations - resolved Hx of CAD? - resume asa, and plavix - resume statin - Had a stress test in 05/2019, per PCP note negative for RWMA Suspected lung malignancy - patient is cachectic - per Dr. Chatterjee, at this stage cannot r/o malignancy - suspicious nodules on CTA - will need outpatient follow up in pulm clinic - PET CT outpatient. Protein calorie malnutrition - BMI 17.5 - dietary eval ordered Dispo: admission expect to last > 2 midnights VS, I&O, 24H, Fishbone Vital Signs/I&O Vital Signs Date Time Temp Pulse Resp B/P (MAP) Pulse Ox O2 Delivery O2 Flow Rate FiO2 05/28/21 16:00 98.5 81 26 144/89 (107) 97 Nasal Cannula 15.0 05/26/21 20:00 50 I&O- Last 24 Hours up to 6 AM 05/28/21 06:00 Intake Total 1670 ml Output Total 1900 ml Balance -230 ml Laboratory Data 24H LABS Laboratory Tests 2 05/28/21 05:27: Immature Granulocyte % (Auto) 1.2, Neutrophils (%) (Auto) 79.7H, Lymphocytes (%) (Auto) 9.1L, Monocytes (%) (Auto) 9.8H, Eosinophils (%) (Auto) 0.0, Basophils (%) (Auto) 0.2, Neutrophils # (Auto) 10.4H, Lymphocytes # (Auto) 1.2L, Monocytes # (Auto) 1.3H, Eosinophils # (Auto) 0.0, Basophils # (Auto) 0.0, Nucleated Red Blood Cells % (auto) 0.0, Anion Gap 7L, Glomerular Filtration Rate > 60.0, Calcium Level 8.9, Magnesium Level 1.9, Total Bilirubin 0.1L, Aspartate Amino Transf (AST/SGOT) 21, Alanine Aminotransferase (ALT/SGPT) 54, Alkaline Phosphatase 89, Total Protein 5.8L, Albumin 2.7L, Albumin/Globulin Ratio 0.9 CBC/BMP Laboratory Tests 05/28/21 05:27 Microbiology Microbiology 05/25/21 Blood Culture - Preliminary, Resulted No Growth after 72 hours. All specime... 05/25/21 Blood Culture - Preliminary, Resulted No Growth after 72 hours. All specime... INEZ MOE MD May 28, 2021 19:15
[2021-05-28 20:00] VITALS: BP 131/71
[2021-05-28] MEDS: AZITHROMYCIN INJ 500 MG, VIAL MATE ADAPTER 1 EACH in NS 250 ML IV SCH (20:54)
--- NOTE | 2021-05-28 23:06 | ECHO ---
ECHOCARDIOGRAM DATE OF PROCEDURE: 05/26/2021 Age: 55 Gender: Male Height: Weight: REFERRING PHYSICIAN: Dr. Akin Ramirez PATIENT LOCATION: Room 3218 REASON FOR TESTING: Shortness of breath. MEASUREMENTS: 2D Measurement IVS 1.0 cm LV 3.0 cm LVPW 1.1 cm LA 2.2 cm Aorta 3.3 cm IVC 1.4 cm DOPPLER MEASUREMENT Peak velocity across the aortic valve 1.0 m/s Peak velocity across the LVOT 0.7 m/s Mitral E 0.61 Mitral A 0.79 with ratio of 0.77 Maximum tricuspid valve velocity 3.2 m/s 2D COMMENTS: 1. Normal left ventricular size, wall thickness, and normal global left ventricular systolic function. Estimated left ventricular systolic ejection fraction is 65 to 70%. 2. Normal left atrium. The right atrium appeared mildly enlarged in limited views. Normal right ventricle. 3. The atrial septum appeared to be normal without evidence of defect or shunt. 4. Normal aortic root. 5. No pericardial effusion seen. 6. Mildly calcified aortic valve with normal leaflet excursion. Mildly calcified mitral annulus with normal anterior mitral valve leaflet motion. Normal tricuspid valve. The pulmonic valve and proximal pulmonary artery branches were not well visualized. 7. The inferior vena cava was normal in size, central venous pressure is most likely normal. DOPPLER: It detects mild tricuspid regurgitation. The calculated pulmonary artery systolic pressure varies between 40 to 50 mmHg. Abnormal relaxation pattern was noted across the mitral valve leaflets, as well as the mitral valve annulus consistent with features of grade 1 left ventricular diastolic dysfunction. IMPRESSION: 1. Normal global left ventricular systolic function with a hyperdynamic left ventricle. There are some features of a grade 1 left ventricular diastolic dysfunction manifested by abnormal relaxation. 2. Aortic valve sclerosis without stenosis or aortic regurgitation. 3. Mitral annulus calcification, as related. No evidence of mitral regurgitation or stenosis. 4. Mild tricuspid regurgitation with probably moderate pulmonary hypertension.
[2021-05-29] VITALS: BP 141/83
[2021-05-29] MEDS: IPRATROPIUM 0.5MG/ALBUTEROL 2.5MG INH SOL UD 3ML (DUONEB) NEB SCH ×7 (00:30→20:00)
[2021-05-29 04:00] VITALS: BP 136/86
[2021-05-29] MEDS: methylPREDNISolone 125MG 2ML VIAL IV SCH ×3 (04:06→20:41)
[2021-05-29 06:14] LABS: BASO # 0.1 10^3/uL (0.0-0.2); BASO % 0.3 % (0.0-1.0); HEMATOCRIT 48.8 % (42.0-52.0); HEMOGLOBIN 16.1 g/dl (13.5-17.5); LYMPH % 6.5 % (24.0-44.0); MEAN CORPUSCULAR HEMOGLOBIN 29.1 pg (27.0-33.0); MEAN CORPUSCULAR VOLUME 88.1 fl (80.0-96.0); MONO # 1.5 10^3/uL (0.0-0.8); MONO % 9.2 % (2.0-8.0); NEUTROPHILS % 82.3 % (36.0-66.0); PLATELET COUNT, AUTOMATED 297 10^3/uL (150-450); RED BLOOD COUNT 5.54 10^6/uL (4.30-6.10)
[2021-05-29 06:22] LABS: WHITE BLOOD COUNT 15.7 10^3/uL (4.0-10.0)
[2021-05-29 06:46] LABS: ALBUMIN 2.6 GM/DL (3.2-5.2); ALT/SGPT 63 U/L (12-78); BILIRUBIN,TOTAL 0.1 MG/DL (0.2-1.0); BLOOD UREA NITROGEN 17 MG/DL (7-18); CALCIUM LEVEL 8.9 MG/DL (8.5-10.1); CARBON DIOXIDE LEVEL 34 MEQ/L (21-32); CHLORIDE LEVEL 98 MEQ/L (98-107); CREATININE FOR GFR 0.46 MG/DL (0.70-1.30); GLOMERULAR FILTRATION RATE > 60.0 (>56); GLUCOSE, FASTING 100 MG/DL (70-100); MAGNESIUM LEVEL 1.8 MG/DL (1.8-2.4); POTASSIUM SERUM 4.6 MEQ/L (3.5-5.1); SODIUM LEVEL 137 MEQ/L (136-145); TOTAL PROTEIN 6.1 GM/DL (6.4-8.2)
[2021-05-29 07:54] VITALS: BP 168/97
[2021-05-29] MEDS: TIOTROPIUM INHALER/CAPSULE (SPIRIVA) INH SCH (08:09)
[2021-05-29] MEDS: SYMBICORT 160/4.5MCG INHALER 6GM INH SCH ×2 (08:10→20:02)
[2021-05-29] MEDS: DOCUSATE SODIUM 100MG CAPSULE PO SCH ×3 (09:00→20:42)
[2021-05-29] MEDS: haloperidoL 5 MG TAB PO SCH (09:30)
[2021-05-29] MEDS: ENOXAPARIN 40MG/0.4ML SYRINGE (J1650 PER 10MG) SC SCH (09:30)
[2021-05-29] MEDS: guaiFENesin ER 600 MG TAB PO SCH ×2 (09:30→20:41)
[2021-05-29] MEDS: VENLAFAXINE **XR** 75MG CAPSULE PO SCH (09:31)
--- NOTE | 2021-05-29 10:36 | IPNPDOC ---
Date Seen The patient was seen on 05/29/21. Progress Note SUBJECTIVE: Patient was seen and examined at bedside. No acute events overnight. He has been weaned down to 10 L on the facemask. His breathing has improved, although his recovery is expected to be more prolonged. Patient denies any coughing with hemoptysis or production of sputum. The patient is in good spirits and states that he feels better. OBJECTIVE PHYSICAL EXAMINATION: VITAL SIGNS: please see below General: Very thin, cachectic and emaciated-looking man acutely short of breath, unable to speak in full sentences HEENT: PERRLA, EOMI, sclerae clear Neck: supple, normal ROM, no JVD Respiratory: Do surgery bilaterally. Wheezing has improved. No rales, no rhonchi CVS: RRR, normal S1, S2, no murmurs Abdo: soft, no masses, no hepatosplenomegaly, BS+, no rebound tenderness Extremities: no edema, pulses 2+ MSK: no joint deformities, normal ROM Neuro: no focal neuro deficits, moving all 4 extremities, CN2-12 intact. Strength 5/5 in all 4 extremities. No nystagmus. Psych: calm, cooperative, AAO x 3 LABORATORY DATA, IMAGING STUDIES, MICROBIOLOGY: Please see below. Echocardiogram: pending report from 05/26/21 DVT prophylaxis ordered?: SCDs. TEDs. Lovenox ASSESSMENT: This 65-year-old male with a past medical history of COPD not on home O2, AHMET, hyperlipidemia, myocardial infarction, polysubstance abuse, presented to the ER with acute worsening of shortness of breath and wheezing. Patient was found to be hypoxic and required 7L via NC to maintain saturation above 90%. Found to have WBC 16.7. Hgb 18.2, hct 53.2. CXR c/w advanced COPD changes and suspected pneumonia. CT imaging findings concerning for infection in addition to malignancy, based on increased hilar adenopathy (increased R infrahilar LN 1.3 to 2.5cm), as well as new parenchymal opacities/spiculated nodules. Patient received 125 mg IV solumedrol, 1g IV ceftriaxone, 500 mg IV azithromycin and combivent. Patient states that he is uncomfortable being in the hospital and is asking if he can leave tomorrow. Patient denies any chest pain, palpitations, nausea, vomiting, or diarrhea. She reports approximately 10 pound weight loss in the last 2 months. Patient will be admitted to hospitalist service and to PCU for the management of acute COPD exacerbation secondary to community-acquired pneumonia. . PLAN: Acute hypoxic respiratory failure 2/2 acute COPD exacerbation and community acquired pneumonia Severe bullous emphysema GOLD IV - hypoxic, 7L to maintain Sat > 90%. Not O2 dependent at home. Not retaining CO2 on VBG - s/p solumedrol, ceftriaxone, azithromycin, combivent in ER - resume home inhalers - Will stop solumedrol 60 mg IV q8h, transition to PO steroids - c/w ceftriaxone, azithromycin - check sputum culture, legionella ag, strep pneumo ag - blood cultures have thus far been negative at 72 hours. - pulmonary consult placed due to persistent desaturation - symbicort, spiriva - WBC trending up, but likely steroid induced demargination. - will check legionella, strep ag. sputum culture. Polycythemia - takes ASA - cAK mutations. EPO 8.0. - resolved, suspect was likely reactive 2/2 chronic hypoxemia Hx of CAD? - resume asa, and plavix - resume statin - Had a stress test in 05/2019, per PCP note negative for RWMA Suspected lung malignancy - patient is cachectic - per Dr. Chatterjee, at this stage cannot r/o malignancy - suspicious nodules on CTA - will need outpatient follow up in pulm clinic - PET CT outpatient. Protein calorie malnutrition - BMI 17.5 - dietary eval ordered Dispo: admission expect to last > 2 midnights VS, I&O, 24H, Fishbone Vital Signs/I&O Vital Signs Date Time Temp Pulse Resp B/P (MAP) Pulse Ox O2 Delivery O2 Flow Rate FiO2 05/29/21 07:54 98.9 67 24 168/97 (120) 97 Nasal Cannula 10.0 05/26/21 20:00 50 I&O- Last 24 Hours up to 6 AM 05/29/21 06:00 Intake Total 2120 ml Output Total 1375 ml Balance 745 ml Laboratory Data 24H LABS Laboratory Tests 2 05/29/21 05:22: Immature Granulocyte % (Auto) 1.7, Neutrophils (%) (Auto) 82.3H, Lymphocytes (%) (Auto) 6.5L, Monocytes (%) (Auto) 9.2H, Eosinophils (%) (Auto) 0.0, Basophils (%) (Auto) 0.3, Neutrophils # (Auto) 13.0H, Lymphocytes # (Auto) 1.0L, Monocytes # (Auto) 1.5H, Eosinophils # (Auto) 0.0, Basophils # (Auto) 0.1, Nucleated Red Blood Cells % (auto) 0.0, Anion Gap 5L, Glomerular Filtration Rate > 60.0, Calcium Level 8.9, Magnesium Level 1.8, Total Bilirubin 0.1L, Aspartate Amino Transf (AST/SGOT) 26, Alanine Aminotransferase (ALT/SGPT) 63, Alkaline Phosphatase 93, Total Protein 6.1L, Albumin 2.6L, Albumin/Globulin Ratio 0.7 CBC/BMP Laboratory Tests 05/29/21 05:22 Microbiology Microbiology 05/25/21 Blood Culture - Preliminary, Resulted No Growth after 72 hours. All specime... 05/25/21 Blood Culture - Preliminary, Resulted No Growth after 72 hours. All specime... INEZ MOE MD May 29, 2021 10:36
--- NOTE | 2021-05-29 11:10 | IPN ---
PROGRESS NOTE DATE: 05/29/2021 SUBJECTIVE: Patient was seen at bedside rounds this morning in the Progressive Care Unit (PCU). Patient is resting comfortably in bed without any acute distress. He is on nasal cannula, however he refuses to wear it under his nares due to his congenital nasal septum abnormality and states that it is not comfortable. He is saturating at 95% in the room without his NC placed correctly under his nose. He did not have any acute events overnight reported by the nurse. He states that his cough is improving with less sputum production. He also states that he is starting to notice that his wheeze is also improving. Currently, he is on nasal cannula at rest in the bed, however he does use the Ventimask when getting out of bed to go to the restroom. OBJECTIVE: VITAL SIGNS: Temperature 98.9, pulse 67, respirations 24, blood pressure 168/97, mean arterial pressure (MAP) 120, 10 liters nasal cannula saturating at 97%. GENERAL: Patient is a very thin, elderly gentleman resting comfortably in bed without any respiratory distress. He is able to speak in full sentences without accessory muscle use or retractions. HEENT: Sclerae clear, anicteric, pupils equal and reactive to light, mucous membranes are moist, no lesions seen, tongue is midline. NECK/LYMPHATICS: Supple neck, no tracheal deviation or mass, no evidence of bruits, unable to palpable lymphadenopathy, unable to palpate any significant thyromegaly. CARDIAC: Normal S1, S2, no significant audible murmurs, rubs, or gallops, no evidence of elevated jugular venous pressure (JVP), no peripheral edema appreciated. PULMONARY: Patient is still wheezing throughout, although much improved from previous day. Some dullness to percussion in the bilateral lung bases. No rales or rhonchi appreciated. ABDOMEN: Soft, nontender, nondistended. No hepatosplenomegaly. No masses or hernias palpated. EXTREMITIES: No cyanosis, bruising, or calf tenderness. He does have clubbing in his nails. LABORATORY DATA: His white count today is 15.7, hemoglobin and hematocrit 16.1/48.8, platelet 297, sodium 137, potassium 4.6, chloride 98, bicarbonate 34, BUN and creatinine 17/0.46, fasting glucose 100, magnesium 1.8. IMAGING: No new imaging. ASSESSMENT AND PLAN: This is a 55-year-old, elderly gentleman who presents to [facility] Emergency Room ([facility] ER) with a 2.5 month history of worsening cough productive of green sputum. He also started to notice progressive shortness of breath since April. In the emergency room (ER), he was hypoxic and required 7 liters through nasal cannula to maintain his oxygen saturation above 90%. He was found to also have leukocytosis as well as elevated hemoglobin and hematocrit likely in the setting of acute hypoxemia. His chest x-ray did show advanced airway disease and is suspicious for pneumonia. His CT imaging of his chest showed increased hilar adenopathy most prominent on the right side as well as some spiculated nodules. The patient received a loading dose of Solu-Medrol in the emergency room (ER) and was subsequently started on Rocephin and Zithromax as well as scheduled IV Solu-Medrol every 8 hours by the hospitalist. Pulmonary service was consulted for persistent hypoxemia and suspicious nodule found on radiographs. 1. Acute on chronic chronic obstructive pulmonary disease (COPD) exacerbation. Patient has severe bullous emphysema, GOLD 4 in 2018. He started to notice worsening cough for the past 2.5 months with worsening progressive shortness of breath with minimal exertion in the last month. The cough was initially productive of thick green sputum. Patient currently is responding to therapy and tolerating his increased doses of inhaled anticholinergics and steroids. He does continue to wheeze although much improved from previous days. Given his advanced nature of his disease I will recommend a slower taper of his steroids. 2. Pneumonia. There is a patchy parenchymal opacity in the lung bases with mediastinal and hilar adenopathy which appear to have increased in size, likely reactive due to infectious process/pneumonia, however cannot rule out malignancy given his longstanding history of tobacco abuse. Agree with current antibiotics of Rocephin and Zithromax, today is day #4 of both antibiotics. 3. Hypoxemia. Currently patient is tolerating nasal cannula at rest and able to saturate at 95% with 10 liters. Patient does have episodes of desaturation when he gets up from bed to go to the restroom but is able to maintain oxygenation between 88-92% with Ventimask. I will continue supplemental oxygen and continue to titrate his oxygenation between 88-92%. 4. Abnormal imaging. CTA shows multiple pulmonary nodules which appear stable, however new asymmetric parenchymal opacities have obscured some of the previously recognized somewhat spiculated nodules. His advanced air space disease with bullous and blebs may also be obscuring possibly new abnormal nodules. Patient last time followed up with pulmonary on an outpatient basis back in 2018. Other potential etiologies given his longstanding smoking history and noncompliance with outpatient followup and imaging to follow his pulmonary nodules is that this could be potential neoplastic process. If patient is willing, he would benefit from establishing care again on an outpatient basis with pulmonary service. 5. Tobacco dependence. Again smoking cessation was discussed with the patient. Patient does understand the magnitude of his situation and his advanced lung disease, however patient is still not ready at this point to quit cold turkey. 6. Deep venous thrombosis (DVT) prophylaxis with Lovenox subcutaneous. 7. Code status. FULL CODE. My faculty preceptor for this patient encounter was physically present during the encounter and was fully available. All aspects of the patient interview, examination, medical decision making process, and medical care plan development were reviewed and approved by the faculty preceptor. The faculty preceptor is aware and concurs with the plan as stated in the body of this note and will attest to such by his/her co-signature. Edited by: ASHU 05/29/2021 15:45PM Dr. Chatterjee: I saw the patient and participated in the burgess elements of the evaluation and medical decision process. There has been progress and it would appear that his continued response to therapy is a reasonable expectation. Recovery will be slow given the advanced nature of his lung disease. He has declined outpatient workup in the past but if he is willing then refer him at discharge. We will follow at a distance for the remainder of the hospital stay. Please call if questions arise. JENNIFER
[2021-05-29 11:18] LABS: C REACTIVE PROTEIN QUANTITATIV 1.49 MG/DL (0.00-0.30)
[2021-05-29 12:00] VITALS: BP 140/86
[2021-05-29 15:08] LABS: BODY FLUID CULTURE Not indicated. (.); LEGIONELLA ANTIGEN URINE Negative (Negative); ORGANISM ID Not indicated. (.); SPECIMEN SOURCE Urine (.)
[2021-05-29 16:00] VITALS: BP 135/90
[2021-05-29] MEDS ORDERED: MAG SULF 1GM/100ML (MAG RUN) 1 GM in IV 1 EA IV ONE (16:15)
[2021-05-29] MEDS ORDERED: SLF 3 ML SYR IV PRN (18:10)
[2021-05-29] MEDS: cefTRIAXone SOD 1 GM in D5W MINI-BAG PLUS 50 ML IV SCH (18:11)
[2021-05-29 20:00] VITALS: BP 134/78
[2021-05-29] MEDS: SLF 3 ML SYR IV SCH (20:42)
[2021-05-29] MEDS: AZITHROMYCIN INJ 500 MG, VIAL MATE ADAPTER 1 EACH in NS 250 ML IV SCH (20:42)
[2021-05-30] VITALS: BP 159/93
[2021-05-30] MEDS: IPRATROPIUM 0.5MG/ALBUTEROL 2.5MG INH SOL UD 3ML (DUONEB) NEB SCH ×7 (02:47→23:15)
[2021-05-30 04:00] VITALS: BP 153/89
[2021-05-30] MEDS: methylPREDNISolone 125MG 2ML VIAL IV SCH ×3 (04:22→21:06)
[2021-05-30] MEDS: SLF 3 ML SYR IV SCH ×3 (04:25→21:07)
[2021-05-30 05:54] LABS: BASO # 0.1 10^3/uL (0.0-0.2); BASO % 0.6 % (0.0-1.0); HEMOGLOBIN 17.5 g/dl (13.5-17.5); LYMPH # 1.1 10^3/uL (1.5-5.0); LYMPH % 6.8 % (24.0-44.0); MEAN CORPUSCULAR HEMOGLOBIN 29.1 pg (27.0-33.0); MEAN CORPUSCULAR VOLUME 88.2 fl (80.0-96.0); MONO # 1.8 10^3/uL (0.0-0.8); MONO % 11.9 % (2.0-8.0); NEUTROPHILS % 77.5 % (36.0-66.0); PLATELET COUNT, AUTOMATED 324 10^3/uL (150-450); RED BLOOD COUNT 6.01 10^6/uL (4.30-6.10)
[2021-05-30 05:58] LABS: WHITE BLOOD COUNT 15.4 10^3/uL (4.0-10.0)
[2021-05-30 06:30] LABS: ALT/SGPT 64 U/L (12-78); BILIRUBIN,TOTAL 0.3 MG/DL (0.2-1.0); BLOOD UREA NITROGEN 16 MG/DL (7-18); CALCIUM LEVEL 8.9 MG/DL (8.5-10.1); CARBON DIOXIDE LEVEL 39 MEQ/L (21-32); CHLORIDE LEVEL 96 MEQ/L (98-107); CREATININE FOR GFR 0.52 MG/DL (0.70-1.30); GLOMERULAR FILTRATION RATE > 60.0 (>56); GLUCOSE, FASTING 98 MG/DL (70-100); MAGNESIUM LEVEL 2.3 MG/DL (1.8-2.4); POTASSIUM SERUM 5.2 MEQ/L (3.5-5.1); SODIUM LEVEL 137 MEQ/L (136-145); TOTAL PROTEIN 6.3 GM/DL (6.4-8.2)
[2021-05-30] MEDS: TIOTROPIUM INHALER/CAPSULE (SPIRIVA) INH SCH (07:57)
[2021-05-30] MEDS: SYMBICORT 160/4.5MCG INHALER 6GM INH SCH ×2 (07:59→20:06)
[2021-05-30 08:00] VITALS: BP 150/90
[2021-05-30] MEDS: VENLAFAXINE **XR** 75MG CAPSULE PO SCH (08:09)
[2021-05-30] MEDS: ENOXAPARIN 40MG/0.4ML SYRINGE (J1650 PER 10MG) SC SCH (08:10)
[2021-05-30] MEDS: haloperidoL 5 MG TAB PO SCH (08:10)
[2021-05-30] MEDS: guaiFENesin ER 600 MG TAB PO SCH ×2 (08:10→21:06)
[2021-05-30] MEDS: DOCUSATE SODIUM 100MG CAPSULE PO SCH ×2 (08:10→21:06)
[2021-05-30 12:00] VITALS: BP 152/96
--- NOTE | 2021-05-30 14:31 | IPNPDOC ---
Subjective Date Seen The patient was seen on 05/30/21. Subjective Chief Complaint/HPI Complains of shortness of breath though reports that it is better than yesterday. His oxygen requirement has come down from 10 L to 6 L. Wants to go home. I explained that he he is needing too much oxygen which we cannot supply at home so once his oxygen requirement goes down to about 2 to 3 L I would be able to discharge him. He seems to understand. I did mention that he will likely need to go home with oxygen which she is agreeable. Objective Physical Examination General Exam: Positive: Alert, Cooperative, No Acute Distress Eye Exam: Positive: PERRLA, Conjunctiva & lids normal, EOMI; Negative: Sclera icteric Neck Exam: Positive: Supple; Negative: JVD, thyromegaly Chest Exam: Positive: Diminished (Overall diminished) Heart Exam: Positive: Rate Normal, Regular Rhythm, Normal S1, Normal S2; Negative: Murmurs, Rubs Telemetry: Positive: No significant arrhythmia Abdomen Exam: Positive: Normal bowel sounds, Soft; Negative: Tenderness, Hepatospenomegaly Extremity Exam: Negative: Clubbing, Cyanosis, Edema Psych Exam: Positive: Memory Intact, Oriented x 3 Assessment /Plan Assessment This 65-year-old male with a past medical history of COPD not on home O2, Smoker, AHMET, hyperlipidemia, myocardial infarction, polysubstance abuse, presented to the ER with acute worsening of shortness of breath and wheezing. Patient was found to be hypoxic and required 7L via NC to maintain saturation above 90%. CXR c/w advanced COPD changes and suspected pneumonia. CT imaging findings concerning for infection in addition to malignancy, based on increased hilar adenopathy (increased R infrahilar LN 1.3 to 2.5cm), as well as new parenchymal opacities/spiculated nodules. Patient was admitted to hospitalist service for acute on chronic respiratory failure likely due to COPD exacerbation secondary and community-acquired pneumonia. Community-acquired pneumonia The procalcitonin was 0.05 he was treated with 5 days of ceftriaxone and azithromycin Will treat and discontinue antibiotic Acute on chronic hypoxic respiratory failure 2/2 acute COPD exacerbation Continue oxygen supplementation Will likely need to go home with oxygen Severe bullous emphysema GOLD IV With exacerbation sputum culture, legionella ag, strep pneumo ag blood cultures have thus far been negative . On symbicort, spiriva, methylprednisone, albuterol as needed Polycythemia Likely secondary to chronic hypoxemia takes ASA Abnormal imaging. CT angio shows hilar and mediastinal lymphadenopathy and multiple pulmonary nodules. Some of the pulmonary nodules and lymphadenopathy is old however new asymmetric parenchymal opacities have obscured some of the previously recognized somewhat spiculated nodules. His advanced air space disease with bullas and blebs may also be obscuring possibly new abnormal nodules. Patient last time followed up with pulmonary on an outpatient basis back in 2018. Cannot rule out underlying lung malignancy per Dr. Chatterjee. will need outpatient follow up in pulm clinic if patient is agreeable PET CT outpatient. Protein calorie malnutrition This is likely due to advanced pulmonary disease BMI 17.5, bitemporal wasting, wasting of small muscles of hands and intercostal muscles dietary eval ordered Hx of CAD? resume asa, and plavix, statin Had a stress test in 05/2019, per PCP note negative for RWMA Depression and anxiety On venlafaxine, hydroxyzine, Haldol Current smoker Refuses to use quit at this point Plan/VTE VTE Prophylaxis Ordered?: Yes VS, I&O, 24H, Fishbone Vital Signs/I&O Vital Signs Date Time Temp Pulse Resp B/P (MAP) Pulse Ox O2 Delivery O2 Flow Rate FiO2 05/30/21 12:00 98.5 106 24 152/96 (114) 90 Nasal Cannula 6.0 05/26/21 20:00 50 I&O- Last 24 Hours up to 6 AM 05/30/21 06:00 Intake Total 2640 ml Output Total 4300 ml Balance -1660 ml Laboratory Data 24H LABS Laboratory Tests 2 05/30/21 05:14: Immature Granulocyte % (Auto) 3.2H, Neutrophils (%) (Auto) 77.5H, Lymphocytes (%) (Auto) 6.8L, Monocytes (%) (Auto) 11.9H, Eosinophils (%) (Auto) 0.0, Basophils (%) (Auto) 0.6, Neutrophils # (Auto) 12.0H, Lymphocytes # (Auto) 1.1L, Monocytes # (Auto) 1.8H, Eosinophils # (Auto) 0.0, Basophils # (Auto) 0.1, Nuc leated Red Blood Cells % (auto) 0.0, Anion Gap 2L, Glomerular Filtration Rate > 60.0, Calcium Level 8.9, Magnesium Level 2.3, Total Bilirubin 0.3#, Aspartate Amino Transf (AST/SGOT) 22, Alanine Aminotransferase (ALT/SGPT) 64, Alkaline Phosphatase 96, Total Protein 6.3L, Albumin 3.0L, Albumin/Globulin Ratio 0.9 CBC/BMP Laboratory Tests 05/30/21 05:14 Microbiology Microbiology 05/25/21 Blood Culture - Final, Complete NO GROWTH AFTER 5 DAYS 05/25/21 Blood Culture - Final, Complete NO GROWTH AFTER 5 DAYS CESAR HENSON MD May 30, 2021 14:31
[2021-05-30 16:00] VITALS: BP 128/70
[2021-05-30] MEDS: MAALOX 30 ML SUSP *UDC PO PRN (16:10)
[2021-05-30 20:00] VITALS: BP 141/99
[2021-05-31] VITALS (21 sets, daily range): BP systolic 123–153; BP diastolic 78–100; O2SAT 85–96
[2021-05-31] MEDS: IPRATROPIUM 0.5MG/ALBUTEROL 2.5MG INH SOL UD 3ML (DUONEB) NEB SCH ×5 (04:02→20:04)
[2021-05-31] MEDS: methylPREDNISolone 125MG 2ML VIAL IV SCH (04:29)
[2021-05-31] MEDS: SLF 3 ML SYR IV SCH ×3 (04:29→20:53)
[2021-05-31 05:43] LABS: BASO # 0.1 10^3/uL (0.0-0.2); BASO % 0.4 % (0.0-1.0); HEMATOCRIT 52.5 % (42.0-52.0); HEMOGLOBIN 17.8 g/dl (13.5-17.5); LYMPH # 1.2 10^3/uL (1.5-5.0); LYMPH % 5.6 % (24.0-44.0); MEAN CORPUSCULAR HEMOGLOBIN 29.2 pg (27.0-33.0); MEAN CORPUSCULAR HGB CONC 33.9 g/dl (32.0-36.5); MEAN CORPUSCULAR VOLUME 86.2 fl (80.0-96.0); MONO # 1.7 10^3/uL (0.0-0.8); MONO % 8.1 % (2.0-8.0); NEUTROPHILS # 17.1 10^3/uL (1.5-8.5); NEUTROPHILS % 82.1 % (36.0-66.0); PLATELET COUNT, AUTOMATED 349 10^3/uL (150-450); RED BLOOD COUNT 6.09 10^6/uL (4.30-6.10)
[2021-05-31 06:05] LABS: WHITE BLOOD COUNT 20.9 10^3/uL (4.0-10.0)
[2021-05-31 06:12] LABS: ALBUMIN 3.1 GM/DL (3.2-5.2); ALT/SGPT 64 U/L (12-78); BILIRUBIN,TOTAL 0.4 MG/DL (0.2-1.0); BLOOD UREA NITROGEN 16 MG/DL (7-18); CALCIUM LEVEL 8.6 MG/DL (8.5-10.1); CARBON DIOXIDE LEVEL 33 MEQ/L (21-32); CHLORIDE LEVEL 95 MEQ/L (98-107); CREATININE FOR GFR 0.56 MG/DL (0.70-1.30); GLOMERULAR FILTRATION RATE > 60.0 (>56); GLUCOSE, FASTING 117 MG/DL (70-100); MAGNESIUM LEVEL 1.9 MG/DL (1.8-2.4); POTASSIUM SERUM 4.6 MEQ/L (3.5-5.1); SODIUM LEVEL 133 MEQ/L (136-145); TOTAL PROTEIN 6.1 GM/DL (6.4-8.2)
[2021-05-31] MEDS: SYMBICORT 160/4.5MCG INHALER 6GM INH SCH ×2 (08:57→20:00)
[2021-05-31] MEDS: TIOTROPIUM INHALER/CAPSULE (SPIRIVA) INH SCH (08:57)
[2021-05-31] MEDS: DOCUSATE SODIUM 100MG CAPSULE PO SCH ×2 (09:00→20:53)
[2021-05-31] MEDS: ENOXAPARIN 40MG/0.4ML SYRINGE (J1650 PER 10MG) SC SCH (09:44)
[2021-05-31] MEDS: VENLAFAXINE **XR** 75MG CAPSULE PO SCH (09:45)
[2021-05-31] MEDS: haloperidoL 5 MG TAB PO SCH (09:45)
[2021-05-31] MEDS: guaiFENesin ER 600 MG TAB PO SCH ×2 (09:45→20:53)
[2021-05-31 14:16] LABS: BODY FLUID CULTURE Not indicated. (.); LEGIONELLA ANTIGEN URINE Negative (Negative); ORGANISM ID Not indicated. (.); SPECIMEN SOURCE Urine (.)
[2021-05-31] MEDS: methylPREDNISolone 40MG 1ML VIAL IV SCH ×2 (14:38→20:53)
--- NOTE | 2021-05-31 17:11 | IPNPDOC ---
Subjective Date Seen The patient was seen on 05/31/21. Subjective Chief Complaint/HPI SOb is slowly getting a little better. Now needing 5 liters of oxygen. Working with PT and OT. Objective Physical Examination General Exam: Positive: Alert, Cooperative, No Acute Distress Eye Exam: Positive: PERRLA, Conjunctiva & lids normal, EOMI; Negative: Sclera icteric Neck Exam: Positive: Supple; Negative: JVD, thyromegaly Chest Exam: Positive: Diminished (Overall diminished) Heart Exam: Positive: Rate Normal, Regular Rhythm, Normal S1, Normal S2; Negative: Murmurs, Rubs Telemetry: Positive: No significant arrhythmia Abdomen Exam: Positive: Normal bowel sounds, Soft; Negative: Tenderness, Hepatospenomegaly Extremity Exam: Negative: Clubbing, Cyanosis, Edema Psych Exam: Positive: Memory Intact, Oriented x 3 Assessment /Plan Assessment This 65-year-old male with a past medical history of COPD not on home O2, Smoker, AHMET, hyperlipidemia, myocardial infarction, polysubstance abuse, presented to the ER with acute worsening of shortness of breath and wheezing. Patient was found to be hypoxic and required 7L via NC to maintain saturation above 90%. CXR c/w advanced COPD changes and suspected pneumonia. CT imaging findings concerning for infection in addition to malignancy, based on increased hilar adenopathy (increased R infrahilar LN 1.3 to 2.5cm), as well as new parenchymal opacities/spiculated nodules. Patient was admitted to hospitalist service for acute on chronic respiratory failure likely due to COPD exacerbation secondary and community-acquired pneumonia. Community-acquired pneumonia Streptococcus pneumoniae antigen positive in urine The procalcitonin was 0.05 he was treated with 5 days of ceftriaxone and azithromycin Acute on chronic hypoxic respiratory failure 2/2 acute COPD exacerbation Continue oxygen supplementation Will likely need to go home with oxygen Leukocytosis Likely due to methylprednisone Will reduce dose Severe bullous emphysema GOLD IV With exacerbation sputum culture, legionella ag, strep pneumo ag blood cultures have thus far been negative . On symbicort, spiriva, methylprednisone, albuterol as needed Polycythemia Likely secondary to chronic hypoxemia takes ASA Abnormal imaging. CT angio shows hilar and mediastinal lymphadenopathy and multiple pulmonary nodules. Some of the pulmonary nodules and lymphadenopathy is old however new asymmetric parenchymal opacities have obscured some of the previously recognized somewhat spiculated nodules. His advanced air space disease with bullas and blebs may also be obscuring possibly new abnormal nodules. Patient last time followed up with pulmonary on an outpatient basis back in 2018. Cannot rule out underlying lung malignancy per Dr. Chatterjee. will need outpatient follow up in pulm clinic if patient is agreeable PET CT outpatient. Protein calorie malnutrition This is likely due to advanced pulmonary disease BMI 17.5, bitemporal wasting, wasting of small muscles of hands and intercostal muscles Hx of CAD? resume asa, and plavix, statin Had a stress test in 05/2019, per PCP note negative for RWMA Depression and anxiety On venlafaxine, hydroxyzine, Haldol Current smoker Refuses to use quit at this point Plan/VTE VTE Prophylaxis Ordered?: Yes VS, I&O, 24H, Fishbone Vital Signs/I&O Vital Signs Date Time Temp Pulse Resp B/P (MAP) Pulse Ox O2 Delivery O2 Flow Rate FiO2 05/31/21 12:13 97.9 76 20 123/78 (93) 91 High Flow Cannula 5.0 05/26/21 20:00 50 I&O- Last 24 Hours up to 6 AM 05/31/21 06:00 Intake Total 3425 ml Output Total 3375 ml Balance 50 ml Laboratory Data 24H LABS Laboratory Tests 2 05/31/21 05:20: Immature Granulocyte % (Auto) 3.8H, Neutrophils (%) (Auto) 82.1H, Lymphocytes (%) (Auto) 5.6L, Monocytes (%) (Auto) 8.1H, Eosinophils (%) (Auto) 0.0, Basophils (%) (Auto) 0.4, Neutrophils # (Auto) 17.1H, Lymphocytes # (Auto) 1.2L, Monocytes # (Auto) 1.7H, Eosinophils # (Auto) 0.0, Basophils # (Auto) 0.1, Nucleated Red Blood Cells % (auto) 0.0, Anion Gap 5L, Glomerular Filtration Rate > 60.0, Calcium Level 8.6, Magnesium Level 1.9, Total Bilirubin 0.4, Aspartate Amino Transf (AST/SGOT) 21, Alanine Aminotransferase (ALT/SGPT) 64, Alkaline Phosphatase 90, Total Protein 6.1L, Albumin 3.1L, Albumin/Globulin Ratio 1.0 CBC/BMP Laboratory Tests 05/31/21 05:20 Microbiology Microbiology 05/25/21 Blood Culture - Final, Complete NO GROWTH AFTER 5 DAYS 05/25/21 Blood Culture - Final, Complete NO GROWTH AFTER 5 DAYS CESAR HENSON MD May 31, 2021 17:11
[2021-06-01] VITALS (21 sets, daily range): BP systolic 122–155; BP diastolic 75–98; O2SAT 85–98
[2021-06-01] MEDS: IPRATROPIUM 0.5MG/ALBUTEROL 2.5MG INH SOL UD 3ML (DUONEB) NEB SCH ×7 (02:37→23:28)
[2021-06-01] MEDS: methylPREDNISolone 40MG 1ML VIAL IV SCH ×3 (05:34→20:58)
[2021-06-01] MEDS: SLF 3 ML SYR IV SCH ×3 (05:34→22:27)
[2021-06-01 05:55] LABS: BASO # 0.1 10^3/uL (0.0-0.2); BASO % 0.3 % (0.0-1.0); HEMATOCRIT 53.9 % (42.0-52.0); HEMOGLOBIN 18.2 g/dl (13.5-17.5); LYMPH # 1.8 10^3/uL (1.5-5.0); LYMPH % 8.4 % (24.0-44.0); MEAN CORPUSCULAR HEMOGLOBIN 29.3 pg (27.0-33.0); MEAN CORPUSCULAR HGB CONC 33.8 g/dl (32.0-36.5); MEAN CORPUSCULAR VOLUME 86.8 fl (80.0-96.0); MONO # 2.2 10^3/uL (0.0-0.8); MONO % 10.5 % (2.0-8.0); NEUTROPHILS # 16.4 10^3/uL (1.5-8.5); NEUTROPHILS % 76.9 % (36.0-66.0); PLATELET COUNT, AUTOMATED 330 10^3/uL (150-450); RED BLOOD COUNT 6.21 10^6/uL (4.30-6.10)
[2021-06-01 06:19] LABS: ALT/SGPT 61 U/L (12-78); BILIRUBIN,TOTAL 0.5 MG/DL (0.2-1.0); BLOOD UREA NITROGEN 19 MG/DL (7-18); CALCIUM LEVEL 8.9 MG/DL (8.5-10.1); CARBON DIOXIDE LEVEL 31 MEQ/L (21-32); CHLORIDE LEVEL 97 MEQ/L (98-107); CREATININE FOR GFR 0.53 MG/DL (0.70-1.30); GLOMERULAR FILTRATION RATE > 60.0 (>56); GLUCOSE, FASTING 80 MG/DL (70-100); POTASSIUM SERUM 4.9 MEQ/L (3.5-5.1); SODIUM LEVEL 134 MEQ/L (136-145)
[2021-06-01 06:20] LABS: WHITE BLOOD COUNT 21.3 10^3/uL (4.0-10.0)
[2021-06-01] MEDS: TIOTROPIUM INHALER/CAPSULE (SPIRIVA) INH SCH (07:32)
[2021-06-01] MEDS: SYMBICORT 160/4.5MCG INHALER 6GM INH SCH ×2 (07:32→20:04)
[2021-06-01] MEDS: guaiFENesin ER 600 MG TAB PO SCH ×2 (08:25→20:58)
[2021-06-01] MEDS: haloperidoL 5 MG TAB PO SCH (08:25)
[2021-06-01] MEDS: VENLAFAXINE **XR** 75MG CAPSULE PO SCH (08:25)
[2021-06-01] MEDS: ENOXAPARIN 40MG/0.4ML SYRINGE (J1650 PER 10MG) SC SCH (08:25)
[2021-06-01] MEDS: DOCUSATE SODIUM 100MG CAPSULE PO SCH ×2 (08:25→21:00)
--- NOTE | 2021-06-01 09:55 | IPNPDOC ---
Subjective Date Seen The patient was seen on 06/01/21. Subjective Chief Complaint/HPI Feels OK. still in 5 liters of oxygen but reports he is moving better and not becoming as SOB as before and his oxygen levels are staying above 90%. Will try to wean him to 4 liters if tolerated. Objective Physical Examination General Exam: Positive: Alert, Cooperative, No Acute Distress Eye Exam: Positive: PERRLA, Conjunctiva & lids normal, EOMI; Negative: Sclera icteric Neck Exam: Positive: Supple; Negative: JVD, thyromegaly Chest Exam: Positive: Diminished (Overall diminished) Heart Exam: Positive: Rate Normal, Regular Rhythm, Normal S1, Normal S2; Negative: Murmurs, Rubs Telemetry: Positive: No significant arrhythmia Abdomen Exam: Positive: Normal bowel sounds, Soft; Negative: Tenderness, Hepatospenomegaly Extremity Exam: Negative: Clubbing, Cyanosis, Edema Psych Exam: Positive: Memory Intact, Oriented x 3 Assessment /Plan Assessment This 65-year-old male with a past medical history of COPD not on home O2, Smoker, AHMET, hyperlipidemia, myocardial infarction, polysubstance abuse, presented to the ER with acute worsening of shortness of breath and wheezing. Patient was found to be hypoxic and required 7L via NC to maintain saturation above 90%. CXR c/w advanced COPD changes and suspected pneumonia. CT imaging findings concerning for infection in addition to malignancy, based on increased hilar adenopathy (increased R infrahilar LN 1.3 to 2.5cm), as well as new parenchymal opacities/spiculated nodules. Patient was admitted to hospitalist service for acute on chronic respiratory failure likely due to COPD exacerbation secondary and community-acquired pneumonia. Community-acquired pneumonia Streptococcus pneumoniae antigen positive in urine blood cultures negative The procalcitonin was 0.05 he was treated with 5 days of ceftriaxone and azithromycin Acute on chronic hypoxic respiratory failure 2/2 acute COPD exacerbation Continue oxygen supplementation Will need to go home with oxygen Leukocytosis Likely due to methylprednisone Severe bullous emphysema GOLD IV With exacerbation On symbicort, spiriva, methylprednisone, albuterol as needed Polycythemia Likely secondary to chronic hypoxemia SUMI 2 negative. takes ASA Abnormal imaging. CT angio shows hilar and mediastinal lymphadenopathy and multiple pulmonary nodules. Some of the pulmonary nodules and lymphadenopathy is old however new asymmetric parenchymal opacities have obscured some of the previously recognized somewhat spiculated nodules. His advanced air space disease with bullas and blebs may also be obscuring possibly new abnormal nodules. Patient last time followed up with pulmonary on an outpatient basis back in 2017. Cannot rule out underlying lung malignancy per Dr. Chatterjee. will need outpatient follow up in pulm clinic if patient is agreeable PET CT outpatient. Protein calorie malnutrition This is likely due to advanced pulmonary disease BMI 17.5, bitemporal wasting, wasting of small muscles of hands and intercostal muscles Hx of CAD? resume asa, and plavix, statin Had a stress test in 05/2019, per PCP note negative for RWMA Depression and anxiety On venlafaxine, hydroxyzine, Haldol Current smoker Refuses to use quit at this point Plan/VTE VTE Prophylaxis Ordered?: Yes VS, I&O, 24H, Fishbone Vital Signs/I&O Vital Signs Date Time Temp Pulse Resp B/P (MAP) Pulse Ox O2 Delivery O2 Flow Rate FiO2 06/01/21 08:00 98.5 63 20 140/86 (104) 96 High Flow Cannula 5.0 05/26/21 20:00 50 I&O- Last 24 Hours up to 6 AM 06/01/21 06:00 Intake Total 2448 ml Output Total 3450 ml Balance -1002 ml Laboratory Data 24H LABS Laboratory Tests 2 06/01/21 05:32: Immature Granulocyte % (Auto) 3.9H, Neutrophils (%) (Auto) 76.9H, Lymphocytes (%) (Auto) 8.4L, Monocytes (%) (Auto) 10.5H, Eosinophils (%) (Auto) 0.0, Basophils (%) (Auto) 0.3, Neutrophils # (Auto) 16.4H, Lymphocytes # (Auto) 1.8, Monocytes # (Auto) 2.2H, Eosinophils # (Auto) 0.0, Basophils # (Auto) 0.1, Nucleated Red Blood Cells % (auto) 0.0, Anion Gap 6L, Glomerular Filtration Rate > 60.0, Calcium Level 8.9, Magnesium Level 2.0, Total Bilirubin 0.5, Aspartate Amino Transf (AST/SGOT) 18, Alanine Aminotransferase (ALT/SGPT) 61, Alkaline Phosphatase 87, Total Protein 6.0L, Albumin 3.0L, Albumin/Globulin Ratio 1.0 CBC/BMP Laboratory Tests 06/01/21 05:32 Microbiology Microbiology 05/25/21 Blood Culture - Final, Complete NO GROWTH AFTER 5 DAYS 05/25/21 Blood Culture - Final, Complete NO GROWTH AFTER 5 DAYS CESAR HENSON MD Jun 01, 2021 09:55
[2021-06-01] MEDS: MAALOX 30 ML SUSP *UDC PO PRN (20:58)
[2021-06-02 02:00] VITALS: BP 144/86
[2021-06-02] MEDS: methylPREDNISolone 40MG 1ML VIAL IV SCH ×2 (04:56→13:49)
[2021-06-02] MEDS: IPRATROPIUM 0.5MG/ALBUTEROL 2.5MG INH SOL UD 3ML (DUONEB) NEB SCH ×4 (04:59→15:08)
[2021-06-02] MEDS: SLF 3 ML SYR IV SCH ×2 (05:10→14:34)
[2021-06-02 06:00] VITALS: BP 140/88
[2021-06-02] MEDS: TIOTROPIUM INHALER/CAPSULE (SPIRIVA) INH SCH (07:31)
[2021-06-02] MEDS: SYMBICORT 160/4.5MCG INHALER 6GM INH SCH (07:31)
[2021-06-02 08:14] LABS: BASO # 0.1 10^3/uL (0.0-0.2); BASO % 0.4 % (0.0-1.0); HEMATOCRIT 54.4 % (42.0-52.0); HEMOGLOBIN 18.3 g/dl (13.5-17.5); LYMPH # 1.2 10^3/uL (1.5-5.0); LYMPH % 6.4 % (24.0-44.0); MEAN CORPUSCULAR HEMOGLOBIN 29.4 pg (27.0-33.0); MEAN CORPUSCULAR HGB CONC 33.6 g/dl (32.0-36.5); MEAN CORPUSCULAR VOLUME 87.5 fl (80.0-96.0); MONO # 1.5 10^3/uL (0.0-0.8); MONO % 7.9 % (2.0-8.0); NEUTROPHILS % 81.4 % (36.0-66.0); PLATELET COUNT, AUTOMATED 348 10^3/uL (150-450); RED BLOOD COUNT 6.22 10^6/uL (4.30-6.10)
[2021-06-02 08:21] LABS: WHITE BLOOD COUNT 18.4 10^3/uL (4.0-10.0)
[2021-06-02] MEDS: VENLAFAXINE **XR** 75MG CAPSULE PO SCH (08:25)
[2021-06-02] MEDS: DOCUSATE SODIUM 100MG CAPSULE PO SCH (08:25)
[2021-06-02] MEDS: guaiFENesin ER 600 MG TAB PO SCH (08:26)
[2021-06-02] MEDS: haloperidoL 5 MG TAB PO SCH (08:26)
[2021-06-02] MEDS: ENOXAPARIN 40MG/0.4ML SYRINGE (J1650 PER 10MG) SC SCH (08:26)
[2021-06-02 08:38] LABS: BLOOD UREA NITROGEN 19 MG/DL (7-18); CALCIUM LEVEL 9.2 MG/DL (8.5-10.1); CARBON DIOXIDE LEVEL 32 MEQ/L (21-32); CHLORIDE LEVEL 97 MEQ/L (98-107); CREATININE FOR GFR 0.56 MG/DL (0.70-1.30); GLOMERULAR FILTRATION RATE > 60.0 (>56); GLUCOSE, FASTING 94 MG/DL (70-100); POTASSIUM SERUM 4.8 MEQ/L (3.5-5.1); SODIUM LEVEL 135 MEQ/L (136-145)
[2021-06-02 10:09] LABS: URINE STREP PNEUMONIAE ANTIGEN Positive (Negative)
[2021-06-02 10:09] LABS: URINE STREP PNEUMONIAE ANTIGEN Positive (Negative)
[2021-06-02] MEDS ORDERED: IPRA0.00 NEB (10:58)
[2021-06-02] MEDS ORDERED: PRED10TA2 PO (10:58)
--- NOTE | 2021-06-02 11:09 | DS.PDOC ---
Discharge Summary General Date of Admission May 25, 2021 at 16:53 Date of Discharge 06/02/21 Discharge Summary PROCEDURES PERFORMED DURING STAY: [None]. DISCHARGE DIAGNOSES: Community acquired pneumonia Acute on chronic respiratory failure with hypoxia Stage IV COPD with exacerbation Severe bullous emphysema Persistent leukocytosis due to his high-dose of steroids Polycythemia due to chronic hypoxia Abnormal CT scan of the chest with the possibility of underlying malignancy Mediastinal and hilar lymphadenopathy Multiple bilateral pulmonary nodules Protein calorie malnutrition Anxiety and depression COMPLICATIONS/CHIEF COMPLAINT: Copd, Pneumonia. HOSPITAL COURSE: This 65-year-old male with a past medical history of COPD not on home O2, Smoker, AHMET, hyperlipidemia, myocardial infarction, polysubstance abuse, presented to the ER with acute worsening of shortness of breath and wheezing. Patient was found to be hypoxic and required 7L via NC to maintain saturation above 90%. CXR c/w advanced COPD changes and suspected pneumonia. CT imaging findings concerning for infection in addition to malignancy, based on increased hilar adenopathy (increased R infrahilar LN 1.3 to 2.5cm), as well as new parenchymal opacities/spiculated nodules. Patient was admitted to hospitalist service for acute on chronic respiratory failure likely due to COPD exacerbation secondary and community-acquired pneumonia. Community-acquired pneumonia Streptococcus pneumoniae antigen positive in urine x 2 blood cultures negative The procalcitonin was 0.05 he was treated with 5 days of ceftriaxone and azithromycin Acute on chronic hypoxic respiratory failure 2/2 acute COPD exacerbation Continue oxygen supplementation home with oxygen needing 4 to 6 L of oxygen Leukocytosis Likely due to methylprednisone Severe bullous emphysema GOLD IV With exacerbation duonebs, trelegy, albuterol prn, prednisone taper. Polycythemia Likely secondary to chronic hypoxemia SUMI 2 negative. takes ASA Abnormal imaging. CT angio shows hilar and mediastinal lymphadenopathy and multiple pulmonary nodules. Some of the pulmonary nodules and lymphadenopathy is old however new asymmetric parenchymal opacities have obscured some of the previously recognized somewhat spiculated nodules. His advanced air space disease with bullas and blebs may also be obscuring possibly new abnormal nodules. Patient last time followed up with pulmonary on an outpatient basis back in 2018. Cannot rule out underlying lung malignancy per Dr. Chatterjee. will need outpatient follow up in pulm clinic if patient is agreeable PET CT outpatient. Protein calorie malnutrition This is likely due to advanced pulmonary disease BMI 17.5, bitemporal wasting, wasting of small muscles of hands and intercostal muscles Hx of CAD? resume asa, and plavix, statin Had a stress test in 05/2019, per PCP note negative for RWMA Depression and anxiety On venlafaxine, hydroxyzine, Haldol Current smoker Refuses to use quit at this point DISCHARGE MEDICATIONS: Please see below. ALLERGIES: Please see below. PHYSICAL EXAMINATION ON DISCHARGE: VITAL SIGNS: Please see below. General Exam: Positive: Alert, Cooperative, No Acute Distress Eye Exam: Positive: PERRLA, Conjunctiva & lids normal, EOMI; Negative: Sclera icteric Neck Exam: Positive: Supple; Negative: JVD, thyromegaly Chest Exam: Positive: Diminished (Overall diminished) Heart Exam: Positive: Rate Normal, Regular Rhythm, Normal S1, Normal S2; Negative: Murmurs, Rubs Telemetry: Positive: No significant arrhythmia Abdomen Exam: Positive: Normal bowel sounds, Soft; Negative: Tenderness, Hepatosplenomegaly Extremity Exam: Negative: Clubbing, Cyanosis, Edema Psych Exam: Positive: Memory Intact, Oriented x 3 LABORATORY DATA: Please see below. Imaging: CT angio of the chest; There is excellent visualization of the pulmonary arterial vasculature. There are no focal filling defects present that would be considered consistent with acute pu lmonary emboli. There are no pleural or pericardial effusions. There is mediastinal and hilar adenopathy which appears increased. The right infrahilar node seen previously to measure 1.3 cm today measures 2.5 cm. Left hilar adenopathy has also increased along with increased subcarinal adenopathy. The imaged upper abdomen and imaged osseous structures appear unchanged. The thoracic aorta appears stable. Evaluation of the lung call again shows advanced emphysematous changes. There are parenchymal bulla and pleural blebs seen with new patchy asymmetric parenchymal opacities particularly in the lung bases and right greater than left. There are multiple pulmonary nodules which appear stable, however, the new asymmetric parenchymal opacities have obscured some of the previously recognized somewhat spiculated nodules and certainly could obscure new abnormal nodules. ACTIVITY: [As tolerated]. DIET: As tolerated DISCHARGE PLAN: Home DISCHARGE INSTRUCTIONS: Follow up with PMD 1 week Follow-up with pulmonary in 2-week DISCHARGE CONDITION: [Stable]. TIME SPENT ON DISCHARGE: 35 minutes. Vital Signs/I&Os Vital Signs Date Time Temp Pulse Resp B/P (MAP) Pulse Ox O2 Delivery O2 Flow Rate FiO2 06/02/21 06:00 98.2 74 22 140/88 (105) 93 Room Air 06/02/21 02:00 4.0 I&O- Last 24 Hours up to 6 AM 06/02/21 06:00 Intake Total 2000 ml Output Total 1300 ml Balance 700 ml Laboratory Data Labs 24H Laboratory Tests 2 06/02/21 07:57: Immature Granulocyte % (Auto) 3.9H, Neutrophils (%) (Auto) 81.4H, Lymphocytes (%) (Auto) 6.4L, Monocytes (%) (Auto) 7.9, Eosinophils (%) (Auto) 0.0, Basophils (%) (Auto) 0.4, Neutrophils # (Auto) 15.0H, Lymphocytes # (Auto) 1.2L, Monocytes # (Auto) 1.5H, Eosinophils # (Auto) 0.0, Basophils # (Auto) 0.1, Nucleated Red Blood Cells % (auto) 0.0, Anion Gap 6L, Glomerular Filtration Rate > 60.0, Calcium Level 9.2 CBC/BMP Laboratory Tests 06/02/21 07:57 Microbiology Microbiology 05/25/21 Blood Culture - Final, Complete NO GROWTH AFTER 5 DAYS 05/25/21 Blood Culture - Final, Complete NO GROWTH AFTER 5 DAYS Discharge Medications Scheduled Fluticasone/Umeclidin/Vilanter (Trelegy Ellipta 100-62.5-25) 1 Aer Aer, 1 PUFF INH DAILY, (Reported) Haloperidol (Haloperidol) 5 Mg Tab, 5 MG PO DAILY, (Reported) Ipratropium/Albuterol Sulfate (Iprat-Albut 0.5-3(2.5) mg/3 ml) 3 Ml Ampul.neb, 3 ML NEB TID Prednisone (Prednisone) 10 Mg Tablet, 10 MG PO TAPER 5tabs daily x 3 days, then 4tabs daily x 3 days, 3tabs daily x 3 days, 2tabs daily x 3 days, 1tab daily x 3 days and stop Venlafaxine HCl (Venlafaxine HCl ER) 150 Mg Cap, 300 MG PO DAILY, (Reported) Scheduled PRN Albuterol Sulfate (Proair Hfa) 108 Mcg/Act Aer, 2 PUFFS INH Q4H PRN for SHORTNESS OF BREATH, (Reported) Hydroxyzine HCl (Hydroxyzine HCl) 50 Mg Tab, 100 MG PO QID PRN for ANXIETY, (Reported) Allergies Coded Allergies: No Known Allergies (Verified , 07/09/18) CESAR HENSON MD Jun 02, 2021 11:09
== END 2021-06-02 15:29 | disposition home or self-care (01) | DRG 193 ==
LOC: M ED 11:02 → M ED INP 16:53 → M PCU 21:01 → M MSPAV 06-01 20:42
PROVIDERS: ADMIT Family Medicine; ATTEND Internal Medicine Nephrology
DX: J18.9 Pneumonia, unspecified organism (principal); J96.21 Acute and chronic respiratory failure with hypoxia; R64 Cachexia; Z68.1 Body mass index [BMI] 19.9 or less, adult; E46 Unspecified protein-calorie malnutrition; J43.9 Emphysema, unspecified; G47.33 Obstructive sleep apnea (adult) (pediatric); E78.5 Hyperlipidemia, unspecified; I25.2 Old myocardial infarction; I25.10 Atherosclerotic heart disease of native coronary artery without angina pectoris; M48.061 Spinal stenosis, lumbar region without neurogenic claudication; F43.10 Post-traumatic stress disorder, unspecified; R91.8 Other nonspecific abnormal finding of lung field; F31.9 Bipolar disorder, unspecified; J34.2 Deviated nasal septum; D75.1 Secondary polycythemia; K21.9 Gastro-esophageal reflux disease without esophagitis; F41.9 Anxiety disorder, unspecified; F17.200 Nicotine dependence, unspecified, uncomplicated; Z90.49 Acquired absence of other specified parts of digestive tract; Z79.02 Long term (current) use of antithrombotics/antiplatelets; Z20.822 Contact with and (suspected) exposure to COVID-19; Z79.899 Other long term (current) drug therapy

== ENCOUNTER 2022-09-12 14:34 | Inpatient (IN) | payer MEDICARE, MEDICAID ==
[~2022-09-12] VITALS: Ht 175.3 cm; Wt 57.6 kg
[~2022-09-12 14:34] MED LIST changes: +ATRO0.063 INH; +COMBAER6 INH; -HALO5TA PO; +HALO5TAB33 PO; +IPRA0.00 NEB; -OMEP-221 PO; +OMEP40CA5 PO
[2022-09-12] MEDS ORDERED: TRAZ-257 PO (15:07)
[2022-09-12] MEDS ORDERED: KLON0.5T PO (15:07)
[2022-09-12] MEDS ORDERED: COMBAER6 (15:07)
[2022-09-12] MEDS ORDERED: ATRO0.063 INH (15:07)
[2022-09-12] MEDS ORDERED: IPRATROPIUM 0.5MG/ALBUTEROL 2.5MG INH SOL UD 3ML (DUONEB) NEB ONE ×2 (15:15→19:35)
[2022-09-12 15:46] LABS: BASO % 0.3 % (0.0-1.0); HEMATOCRIT 63.5 % (42.0-52.0); LYMPH # 1.2 10^3/uL (1.5-5.0); LYMPH % 8.4 % (24.0-44.0); MEAN CORPUSCULAR HEMOGLOBIN 32.3 pg (27.0-33.0); MEAN CORPUSCULAR HGB CONC 32.8 g/dl (32.0-36.5); MEAN CORPUSCULAR VOLUME 98.8 fl (80.0-96.0); MONO % 13.4 % (2.0-8.0); NEUTROPHILS % 77.4 % (36.0-66.0); PLATELET COUNT, AUTOMATED 175 10^3/uL (150-450); RED BLOOD COUNT 6.43 10^6/uL (4.30-6.10); WHITE BLOOD COUNT 14.3 10^3/uL (4.0-10.0)
[2022-09-12 15:50] LABS: HEMOGLOBIN 20.8 g/dl (13.5-17.5)
[2022-09-12 16:10] LABS: MONO # 1.9 10^3/uL (0.0-0.8)
[2022-09-12] MEDS ORDERED: methylPREDNISolone 125MG 2ML VIAL IV ONE (16:10)
[2022-09-12 16:50] LABS: CK-MB VALUE MASS 8.4 NG/ML (<3.6); MB/CK RELATIVE INDEX 2.09 (< OR =4)
[2022-09-12 16:52] LABS: BILIRUBIN,TOTAL 1.8 MG/DL (0.2-1.0); CALCIUM LEVEL 8.4 MG/DL (8.5-10.1); CREATININE FOR GFR 1.75 MG/DL (0.70-1.30); POTASSIUM SERUM 5.8 MEQ/L (3.5-5.1); TOTAL PROTEIN 6.1 GM/DL (6.4-8.2)
[2022-09-12 16:53] LABS: ALBUMIN 3.1 GM/DL (3.2-5.2)
[2022-09-12] MEDS ORDERED: FUROSEMIDE 100MG/10ML VIAL (J1940) IV ONE (18:05)
[2022-09-12 18:17] LABS: MB/CK RELATIVE INDEX 2.24 (< OR =4)
[2022-09-12] MEDS ORDERED: cefTRIAXone SOD 1 GM in D5W MINI-BAG PLUS 50 ML IV ONE (19:20)
[2022-09-12] MEDS ORDERED: ALBU8.5H INH (20:05)
[2022-09-12] MEDS ORDERED: med rec comment (20:06)
[2022-09-12 20:46] LABS: CK-MB VALUE MASS 8.7 NG/ML (<3.6); MB/CK RELATIVE INDEX 2.11 (< OR =4)
[2022-09-12] MEDS ORDERED: MOM 30ML SUSPENSION UDC PO PRN (21:25)
[2022-09-12] MEDS ORDERED: ACETAMINOPHEN TAB 650MG DOSE (2X325MG) PO PRN (21:25)
[2022-09-12] MEDS: HEPARIN SOD (PORCINE) 5000UNITS/ML 1ML VIAL/SYRINGE SC SCH (23:29)
[2022-09-12] MEDS: DOXYCYCLINE HYCLATE 100 MG in D5W MINI-BAG PLUS 100 ML IV SCH (23:32)
[2022-09-12] MEDS: methylPREDNISolone 125MG 2ML VIAL IV SCH (23:34)
[2022-09-13] MEDS: IPRATROPIUM 0.5MG/ALBUTEROL 2.5MG INH SOL UD 3ML (DUONEB) NEB SCH ×6 (02:54→23:35)
[2022-09-13 05:59] LABS: HEMATOCRIT 58.6 % (42.0-52.0); HEMOGLOBIN 19.2 g/dl (13.5-17.5); MEAN CORPUSCULAR HEMOGLOBIN 32.3 pg (27.0-33.0); MEAN CORPUSCULAR HGB CONC 32.8 g/dl (32.0-36.5); MEAN CORPUSCULAR VOLUME 98.5 fl (80.0-96.0); PLATELET COUNT, AUTOMATED 133 10^3/uL (150-450); RED BLOOD COUNT 5.95 10^6/uL (4.30-6.10); WHITE BLOOD COUNT 10.7 10^3/uL (4.0-10.0)
[2022-09-13 06:52] LABS: ALBUMIN 2.7 GM/DL (3.2-5.2); BILIRUBIN,TOTAL 0.7 MG/DL (0.2-1.0); CALCIUM LEVEL 7.8 MG/DL (8.5-10.1); CREATININE FOR GFR 1.55 MG/DL (0.70-1.30); GLOMERULAR FILTRATION RATE 49.4 (>56); POTASSIUM SERUM 6.1 MEQ/L (3.5-5.1); TOTAL PROTEIN 5.6 GM/DL (6.4-8.2)
[2022-09-13] MEDS: methylPREDNISolone 125MG 2ML VIAL IV SCH ×2 (07:57→20:46)
[2022-09-13] MEDS ORDERED: SYMBICORT 160/4.5MCG INHALER 6GM INH SCH (08:00)
[2022-09-13] MEDS ORDERED: FUROSEMIDE 40MG/4ML VIAL (J1940) IV SCH (09:00)
[2022-09-13] MEDS: HEPARIN SOD (PORCINE) 5000UNITS/ML 1ML VIAL/SYRINGE SC SCH ×2 (09:38→20:46)
[2022-09-13] MEDS: NICOTINE 21MG/24HR 1 EA TRANSDERMAL TD SCH (09:38)
[2022-09-13] MEDS: DOXYCYCLINE HYCLATE 100 MG in D5W MINI-BAG PLUS 100 ML IV SCH ×2 (09:38→22:01)
[2022-09-13] MEDS: DOCUSATE SODIUM 100MG CAPSULE PO SCH ×2 (09:39→20:47)
[2022-09-13 10:52] LABS: ABG BASE EXCESS -1.7 (-2.0-2.0); ABG HCO3 25.9 MEQ/L (22.0-26.0); ABG O2 SATURATION 91.7 % (95.0-99.0); ABG PARTIAL PRESSURE CO2 52.9 mmHg (35.0-45.0); ABG PARTIAL PRESSURE O2 66.5 mmHg (75.0-100.0); ABG STANDARD HCO3 22.9 MEQ/L (22.0-26.0); ABG TOTAL CO2 27.5 MEQ/L (22.0-29.0); ABG pH (ARTERIAL) 7.307 UNITS (7.350-7.450)
[2022-09-13 11:41] LABS: CORTISOL AM 38.9 UG/DL (4.3-22.4); HEPATITIS B CORE ANTIBODY IGM NEGATIVE (NEGATIVE); HEPATITIS B SURFACE ANTIGEN NEGATIVE (NEGATIVE); HEPATITIS C VIRUS ABY INDEX < 0.0 INDEX (<0.8)
[2022-09-13 11:51] LABS: ALBUMIN 2.7 GM/DL (3.2-5.2); ALT/SGPT 122 U/L (12-78); BILIRUBIN,DIRECT 0.5 MG/DL (0.0-0.2); BILIRUBIN,TOTAL 0.8 MG/DL (0.2-1.0); BLOOD UREA NITROGEN 67 MG/DL (7-18); CARBON DIOXIDE LEVEL 29 MEQ/L (21-32); CHLORIDE LEVEL 93 MEQ/L (98-107); CREATININE FOR GFR 1.24 MG/DL (0.70-1.30); GLOMERULAR FILTRATION RATE > 60.0 (>56); GLUCOSE, FASTING 102 MG/DL (70-100); POTASSIUM SERUM 5.5 MEQ/L (3.5-5.1); SODIUM LEVEL 130 MEQ/L (136-145); TOTAL PROTEIN 5.6 GM/DL (6.4-8.2)
[2022-09-13 12:00] VITALS: BP 104/71
[2022-09-13 13:00] VITALS: O2SAT 94
[2022-09-13] MEDS ORDERED: FUROSEMIDE injection 250 MG in D5W 225 ML IV SCH (13:00)
[2022-09-13 16:00] VITALS: BP 111/77
[2022-09-13 20:00] VITALS: BP 105/73
[2022-09-13] MEDS ORDERED: cefTRIAXone SOD 1 GM in D5W MINI-BAG PLUS 50 ML IV SCH (20:00)
[2022-09-13 21:05] LABS: TOTAL PROTEIN,RANDOM URINE 9.9 MG/DL (0.0-12.0)
[2022-09-14] VITALS (21 sets, daily range): BP systolic 88–118; BP diastolic 52–81; O2SAT 90–96
[2022-09-14] MEDS: IPRATROPIUM 0.5MG/ALBUTEROL 2.5MG INH SOL UD 3ML (DUONEB) NEB SCH ×6 (03:42→23:30)
[2022-09-14 04:37] LABS: BASO % 0.1 % (0.0-1.0); HEMATOCRIT 57.3 % (42.0-52.0); HEMOGLOBIN 18.1 g/dl (13.5-17.5); LYMPH # 0.2 10^3/uL (1.5-5.0); LYMPH % 1.4 % (24.0-44.0); MEAN CORPUSCULAR HEMOGLOBIN 31.5 pg (27.0-33.0); MEAN CORPUSCULAR HGB CONC 31.6 g/dl (32.0-36.5); MEAN CORPUSCULAR VOLUME 99.8 fl (80.0-96.0); MONO # 0.9 10^3/uL (0.0-0.8); MONO % 6.7 % (2.0-8.0); NEUTROPHILS # 12.5 10^3/uL (1.5-8.5); NEUTROPHILS % 91.4 % (36.0-66.0); PLATELET COUNT, AUTOMATED 127 10^3/uL (150-450); RED BLOOD COUNT 5.74 10^6/uL (4.30-6.10); WHITE BLOOD COUNT 13.7 10^3/uL (4.0-10.0)
[2022-09-14 04:46] LABS: BLOOD UREA NITROGEN 61 MG/DL (7-18); CALCIUM LEVEL 7.9 MG/DL (8.5-10.1); CARBON DIOXIDE LEVEL 34 MEQ/L (21-32); CHLORIDE LEVEL 94 MEQ/L (98-107); CREATININE FOR GFR 1.09 MG/DL (0.70-1.30); GLOMERULAR FILTRATION RATE > 60.0 (>56); GLUCOSE, FASTING 111 MG/DL (70-100); POTASSIUM SERUM 4.6 MEQ/L (3.5-5.1); SODIUM LEVEL 134 MEQ/L (136-145)
[2022-09-14 05:53] LABS: ABG BASE EXCESS 3.6 (-2.0-2.0); ABG HCO3 32.1 MEQ/L (22.0-26.0); ABG O2 SATURATION 90.4 % (95.0-99.0); ABG PARTIAL PRESSURE O2 58.8 mmHg (75.0-100.0); ABG STANDARD HCO3 27.4 MEQ/L (22.0-26.0); ABG pH (ARTERIAL) 7.332 UNITS (7.350-7.450)
[2022-09-14 05:56] LABS: ABG PARTIAL PRESSURE CO2 61.9 mmHg (35.0-45.0)
[2022-09-14] MEDS: methylPREDNISolone 125MG 2ML VIAL IV SCH ×2 (08:42→20:22)
[2022-09-14] MEDS: HEPARIN SOD (PORCINE) 5000UNITS/ML 1ML VIAL/SYRINGE SC SCH (08:43)
[2022-09-14] MEDS: NICOTINE 21MG/24HR 1 EA TRANSDERMAL TD SCH (08:43)
[2022-09-14] MEDS: DOXYCYCLINE HYCLATE 100 MG in D5W MINI-BAG PLUS 100 ML IV SCH ×2 (08:43→20:21)
[2022-09-14] MEDS: ATORVASTATIN 20 MG TAB PO SCH (08:43)
[2022-09-14] MEDS: DOCUSATE SODIUM 100MG CAPSULE PO SCH ×2 (08:43→20:22)
[2022-09-14] MEDS: ASPIRIN 81 MG CHEW TABLET PEG SCH (08:44)
[2022-09-14] MEDS: FUROSEMIDE injection 250 MG in D5W 225 ML IV SCH (10:23)
[2022-09-14] MEDS: PIPERACILLIN/TAZOBACTAM SOD 4.5 GM in D5W MINI-BAG PLUS 50 ML IV SCH ×3 (10:24→21:48)
[2022-09-14 14:34] LABS: ALBUMIN 2.5 GM/DL (3.2-5.2); ALT/SGPT 91 U/L (12-78); BILIRUBIN,TOTAL 0.5 MG/DL (0.2-1.0); BLOOD UREA NITROGEN 53 MG/DL (7-18); CALCIUM LEVEL 7.8 MG/DL (8.5-10.1); CARBON DIOXIDE LEVEL 38 MEQ/L (21-32); CHLORIDE LEVEL 92 MEQ/L (98-107); GLOMERULAR FILTRATION RATE > 60.0 (>56); GLUCOSE, FASTING 154 MG/DL (70-100); POTASSIUM SERUM 4.3 MEQ/L (3.5-5.1); SODIUM LEVEL 137 MEQ/L (136-145); TOTAL PROTEIN 5.3 GM/DL (6.4-8.2)
[2022-09-14 14:37] LABS: ABG PARTIAL PRESSURE O2 175.6 mmHg (75.0-100.0)
[2022-09-14 14:40] LABS: ABG PARTIAL PRESSURE CO2 67.2 mmHg (35.0-45.0); ABG pH (ARTERIAL) 7.341 UNITS (7.350-7.450)
[2022-09-14 14:41] LABS: ABG BASE EXCESS 6.5 (-2.0-2.0); ABG HCO3 35.5 MEQ/L (22.0-26.0); ABG O2 SATURATION 99.4 % (95.0-99.0); ABG STANDARD HCO3 30.4 MEQ/L (22.0-26.0); ABG TOTAL CO2 37.6 MEQ/L (22.0-29.0)
[2022-09-14] MEDS: ENOXAPARIN 60MG/0.6ML SYRINGE (J1650 PER 10MG) SC SCH (16:22)
[2022-09-14 17:11] LABS: ABG HCO3 38.7 MEQ/L (22.0-26.0); ABG TOTAL CO2 40.8 MEQ/L (22.0-29.0)
[2022-09-14 17:13] LABS: ABG BASE EXCESS 9.4 (-2.0-2.0); ABG PARTIAL PRESSURE CO2 68.9 mmHg (35.0-45.0); ABG PARTIAL PRESSURE O2 58.5 mmHg (75.0-100.0); ABG STANDARD HCO3 32.9 MEQ/L (22.0-26.0); ABG pH (ARTERIAL) 7.367 UNITS (7.350-7.450)
[2022-09-15] VITALS (25 sets, daily range): BP systolic 81–108; BP diastolic 52–73; O2SAT 94
[2022-09-15 00:46] LABS: BLOOD UREA NITROGEN 43 MG/DL (7-18); CALCIUM LEVEL 7.9 MG/DL (8.5-10.1); CARBON DIOXIDE LEVEL 41 MEQ/L (21-32); CHLORIDE LEVEL 92 MEQ/L (98-107); CREATININE FOR GFR 0.79 MG/DL (0.70-1.30); GLOMERULAR FILTRATION RATE > 60.0 (>56); GLUCOSE, FASTING 118 MG/DL (70-100); MAGNESIUM LEVEL 1.5 MG/DL (1.8-2.4); POTASSIUM SERUM 3.7 MEQ/L (3.5-5.1); SODIUM LEVEL 138 MEQ/L (136-145)
[2022-09-15] MEDS: IPRATROPIUM 0.5MG/ALBUTEROL 2.5MG INH SOL UD 3ML (DUONEB) NEB SCH ×6 (03:24→23:16)
[2022-09-15] MEDS ORDERED: ONDANSETRON 4MG 2ML VIAL IV ONE (03:30)
[2022-09-15] MEDS: PIPERACILLIN/TAZOBACTAM SOD 4.5 GM in D5W MINI-BAG PLUS 50 ML IV SCH ×4 (03:48→21:33)
[2022-09-15] MEDS: ENOXAPARIN 60MG/0.6ML SYRINGE (J1650 PER 10MG) SC SCH ×2 (03:48→15:34)
[2022-09-15 04:51] LABS: BASO % 0.1 % (0.0-1.0); HEMOGLOBIN 17.4 g/dl (13.5-17.5); LYMPH # 0.2 10^3/uL (1.5-5.0); LYMPH % 1.9 % (24.0-44.0); MEAN CORPUSCULAR HEMOGLOBIN 32.2 pg (27.0-33.0); MEAN CORPUSCULAR HGB CONC 32.2 g/dl (32.0-36.5); MEAN CORPUSCULAR VOLUME 99.8 fl (80.0-96.0); MONO # 0.7 10^3/uL (0.0-0.8); MONO % 5.3 % (2.0-8.0); NEUTROPHILS # 11.6 10^3/uL (1.5-8.5); NEUTROPHILS % 92.2 % (36.0-66.0); PLATELET COUNT, AUTOMATED 128 10^3/uL (150-450); RED BLOOD COUNT 5.41 10^6/uL (4.30-6.10); WHITE BLOOD COUNT 12.6 10^3/uL (4.0-10.0)
[2022-09-15 05:28] LABS: BLOOD UREA NITROGEN 40 MG/DL (7-18); CALCIUM LEVEL 7.9 MG/DL (8.5-10.1); CARBON DIOXIDE LEVEL 44 MEQ/L (21-32); CHLORIDE LEVEL 91 MEQ/L (98-107); CREATININE FOR GFR 0.77 MG/DL (0.70-1.30); GLOMERULAR FILTRATION RATE > 60.0 (>56); GLUCOSE, FASTING 111 MG/DL (70-100); POTASSIUM SERUM 3.6 MEQ/L (3.5-5.1); SODIUM LEVEL 138 MEQ/L (136-145)
[2022-09-15 06:15] LABS: ABG BASE EXCESS 8.8 (-2.0-2.0); ABG O2 SATURATION 97.9 % (95.0-99.0); ABG PARTIAL PRESSURE CO2 81.9 mmHg (35.0-45.0); ABG PARTIAL PRESSURE O2 105.9 mmHg (75.0-100.0); ABG STANDARD HCO3 32.7 MEQ/L (22.0-26.0); ABG TOTAL CO2 42.5 MEQ/L (22.0-29.0); ABG pH (ARTERIAL) 7.307 UNITS (7.350-7.450)
[2022-09-15] MEDS ORDERED: MAGNESIUM SULFATE IN WATER 2 GM in IV 1 EA IV STA ×2 (08:08)
[2022-09-15] MEDS: NICOTINE 21MG/24HR 1 EA TRANSDERMAL TD SCH (09:42)
[2022-09-15] MEDS: methylPREDNISolone 125MG 2ML VIAL IV SCH ×2 (09:42→20:11)
[2022-09-15] MEDS: ASPIRIN 81 MG CHEW TABLET PEG SCH (09:43)
[2022-09-15] MEDS: DOCUSATE SODIUM 100MG CAPSULE PO SCH ×2 (09:43→20:11)
[2022-09-15] MEDS: ATORVASTATIN 20 MG TAB PO SCH (09:43)
[2022-09-15] MEDS: MAG SULF 1GM/100ML (MAG RUN) 1 GM in IV 1 EA IV SCH ×2 (09:44→13:31)
[2022-09-15] MEDS: DOXYCYCLINE HYCLATE 100 MG in D5W MINI-BAG PLUS 100 ML IV SCH ×2 (09:44→20:11)
[2022-09-15 13:55] LABS: ABG BASE EXCESS 14.2 (-2.0-2.0); ABG HCO3 45.9 MEQ/L (22.0-26.0); ABG O2 SATURATION 92.9 % (95.0-99.0); ABG PARTIAL PRESSURE O2 64.5 mmHg (75.0-100.0); ABG STANDARD HCO3 38.1 MEQ/L (22.0-26.0); ABG TOTAL CO2 48.5 MEQ/L (22.0-29.0); ABG pH (ARTERIAL) 7.354 UNITS (7.350-7.450)
[2022-09-15 13:56] LABS: ABG PARTIAL PRESSURE CO2 84.3 mmHg (35.0-45.0)
[2022-09-15] MEDS ORDERED: MAG SULF 1GM/100ML (MAG RUN) 1 GM in IV 1 EA IV ONE (14:00)
[2022-09-15] MEDS: FUROSEMIDE injection 250 MG in D5W 225 ML IV SCH (14:23)
[2022-09-15 17:56] LABS: ABG BASE EXCESS 15.4 (-2.0-2.0); ABG HCO3 47.6 MEQ/L (22.0-26.0); ABG O2 SATURATION 90.7 % (95.0-99.0); ABG PARTIAL PRESSURE O2 58.8 mmHg (75.0-100.0); ABG STANDARD HCO3 39.3 MEQ/L (22.0-26.0); ABG TOTAL CO2 50.4 MEQ/L (22.0-29.0); ABG pH (ARTERIAL) 7.338 UNITS (7.350-7.450)
[2022-09-15 18:00] LABS: ABG PARTIAL PRESSURE CO2 90.7 mmHg (35.0-45.0)
[2022-09-15] MEDS: PANTOPRAZOLE 40MG VIAL IV SCH (18:49)
[2022-09-16] VITALS (22 sets, daily range): BP systolic 83–118; BP diastolic 50–79
[2022-09-16] MEDS: IPRATROPIUM 0.5MG/ALBUTEROL 2.5MG INH SOL UD 3ML (DUONEB) NEB SCH ×6 (03:16→23:14)
[2022-09-16] MEDS: PIPERACILLIN/TAZOBACTAM SOD 4.5 GM in D5W MINI-BAG PLUS 50 ML IV SCH ×4 (03:54→22:07)
[2022-09-16] MEDS: ENOXAPARIN 60MG/0.6ML SYRINGE (J1650 PER 10MG) SC SCH ×2 (03:54→16:00)
[2022-09-16 04:41] LABS: BASO % 0.1 % (0.0-1.0); HEMATOCRIT 53.7 % (42.0-52.0); HEMOGLOBIN 16.6 g/dl (13.5-17.5); LYMPH # 0.3 10^3/uL (1.5-5.0); LYMPH % 2.2 % (24.0-44.0); MEAN CORPUSCULAR HEMOGLOBIN 31.6 pg (27.0-33.0); MEAN CORPUSCULAR HGB CONC 30.9 g/dl (32.0-36.5); MEAN CORPUSCULAR VOLUME 102.1 fl (80.0-96.0); MONO # 0.7 10^3/uL (0.0-0.8); MONO % 6.6 % (2.0-8.0); NEUTROPHILS # 10.2 10^3/uL (1.5-8.5); NEUTROPHILS % 90.7 % (36.0-66.0); PLATELET COUNT, AUTOMATED 129 10^3/uL (150-450); RED BLOOD COUNT 5.26 10^6/uL (4.30-6.10); WHITE BLOOD COUNT 11.2 10^3/uL (4.0-10.0)
[2022-09-16 05:10] LABS: BLOOD UREA NITROGEN 36 MG/DL (7-18); CALCIUM LEVEL 7.5 MG/DL (8.5-10.1); CARBON DIOXIDE LEVEL 43 MEQ/L (21-32); CHLORIDE LEVEL 91 MEQ/L (98-107); CREATININE FOR GFR 0.89 MG/DL (0.70-1.30); GLOMERULAR FILTRATION RATE > 60.0 (>56); GLUCOSE, FASTING 101 MG/DL (70-100); POTASSIUM SERUM 4.1 MEQ/L (3.5-5.1); SODIUM LEVEL 134 MEQ/L (136-145)
[2022-09-16 05:58] LABS: ABG BASE EXCESS 11.4 (-2.0-2.0); ABG HCO3 42.6 MEQ/L (22.0-26.0); ABG O2 SATURATION 97.5 % (95.0-99.0); ABG PARTIAL PRESSURE O2 92.4 mmHg (75.0-100.0); ABG STANDARD HCO3 35.2 MEQ/L (22.0-26.0); ABG TOTAL CO2 45.2 MEQ/L (22.0-29.0); ABG pH (ARTERIAL) 7.324 UNITS (7.350-7.450)
[2022-09-16 05:59] LABS: ABG PARTIAL PRESSURE CO2 83.8 mmHg (35.0-45.0)
[2022-09-16] MEDS: methylPREDNISolone 125MG 2ML VIAL IV SCH ×2 (08:17→20:03)
[2022-09-16] MEDS: PANTOPRAZOLE 40MG VIAL IV SCH (08:17)
[2022-09-16] MEDS: DOCUSATE SODIUM 100MG CAPSULE PO SCH ×2 (08:18→20:03)
[2022-09-16] MEDS: ASPIRIN 81 MG CHEW TABLET PEG SCH (08:18)
[2022-09-16] MEDS: NICOTINE 21MG/24HR 1 EA TRANSDERMAL TD SCH (08:18)
[2022-09-16] MEDS: ATORVASTATIN 20 MG TAB PO SCH (08:19)
[2022-09-16 08:30] LABS: MAGNESIUM LEVEL 2.1 MG/DL (1.8-2.4)
[2022-09-16 14:31] LABS: ABG BASE EXCESS 13.3 (-2.0-2.0); ABG O2 SATURATION 96.5 % (95.0-99.0); ABG PARTIAL PRESSURE CO2 89.6 mmHg (35.0-45.0); ABG PARTIAL PRESSURE O2 82.3 mmHg (75.0-100.0); ABG STANDARD HCO3 37.2 MEQ/L (22.0-26.0); ABG TOTAL CO2 47.8 MEQ/L (22.0-29.0); ABG pH (ARTERIAL) 7.319 UNITS (7.350-7.450)
[2022-09-16] MEDS: traZODone 100 MG TAB PO SCH (20:03)
[2022-09-17] VITALS (24 sets, daily range): BP systolic 86–126; BP diastolic 51–76; O2SAT 95
[2022-09-17] MEDS: IPRATROPIUM 0.5MG/ALBUTEROL 2.5MG INH SOL UD 3ML (DUONEB) NEB SCH ×5 (03:22→19:03)
[2022-09-17] MEDS: PIPERACILLIN/TAZOBACTAM SOD 4.5 GM in D5W MINI-BAG PLUS 50 ML IV SCH ×4 (04:34→21:53)
[2022-09-17] MEDS: ENOXAPARIN 60MG/0.6ML SYRINGE (J1650 PER 10MG) SC SCH ×2 (04:34→15:57)
[2022-09-17 05:13] LABS: BASO % 0.1 % (0.0-1.0); HEMATOCRIT 52.3 % (42.0-52.0); HEMOGLOBIN 16.4 g/dl (13.5-17.5); LYMPH # 0.2 10^3/uL (1.5-5.0); LYMPH % 2.4 % (24.0-44.0); MEAN CORPUSCULAR HEMOGLOBIN 31.8 pg (27.0-33.0); MEAN CORPUSCULAR HGB CONC 31.4 g/dl (32.0-36.5); MEAN CORPUSCULAR VOLUME 101.6 fl (80.0-96.0); MONO # 0.8 10^3/uL (0.0-0.8); MONO % 8.8 % (2.0-8.0); NEUTROPHILS # 8.1 10^3/uL (1.5-8.5); NEUTROPHILS % 88.4 % (36.0-66.0); PLATELET COUNT, AUTOMATED 124 10^3/uL (150-450); RED BLOOD COUNT 5.15 10^6/uL (4.30-6.10); WHITE BLOOD COUNT 9.1 10^3/uL (4.0-10.0)
[2022-09-17 05:28] LABS: BLOOD UREA NITROGEN 22 MG/DL (7-18); CALCIUM LEVEL 7.7 MG/DL (8.5-10.1); CARBON DIOXIDE LEVEL 41 MEQ/L (21-32); CHLORIDE LEVEL 96 MEQ/L (98-107); CREATININE FOR GFR 0.56 MG/DL (0.70-1.30); GLOMERULAR FILTRATION RATE > 60.0 (>56); GLUCOSE, FASTING 119 MG/DL (70-100); POTASSIUM SERUM 3.9 MEQ/L (3.5-5.1); SODIUM LEVEL 137 MEQ/L (136-145)
[2022-09-17 05:31] LABS: ABG BASE EXCESS 12.9 (-2.0-2.0); ABG HCO3 42.6 MEQ/L (22.0-26.0); ABG O2 SATURATION 96.3 % (95.0-99.0); ABG PARTIAL PRESSURE O2 76.8 mmHg (75.0-100.0); ABG STANDARD HCO3 36.8 MEQ/L (22.0-26.0); ABG TOTAL CO2 44.9 MEQ/L (22.0-29.0); ABG pH (ARTERIAL) 7.376 UNITS (7.350-7.450)
[2022-09-17 05:32] LABS: ABG PARTIAL PRESSURE CO2 74.4 mmHg (35.0-45.0)
[2022-09-17] MEDS: NICOTINE 21MG/24HR 1 EA TRANSDERMAL TD SCH (08:55)
[2022-09-17] MEDS: PANTOPRAZOLE 40MG VIAL IV SCH (08:56)
[2022-09-17] MEDS ORDERED: methylPREDNISolone 125MG 2ML VIAL IV SCH (09:00)
[2022-09-17] MEDS: ATORVASTATIN 20 MG TAB PO SCH (09:50)
[2022-09-17] MEDS: ASPIRIN 81 MG CHEW TABLET PEG SCH (09:50)
[2022-09-17] MEDS: DOCUSATE SODIUM 100MG CAPSULE PO SCH ×2 (09:50→20:07)
[2022-09-17 15:20] LABS: ABG BASE EXCESS 4.3 (-2.0-2.0); ABG HCO3 31.7 MEQ/L (22.0-26.0); ABG O2 SATURATION 97.8 % (95.0-99.0); ABG PARTIAL PRESSURE O2 93.9 mmHg (75.0-100.0); ABG STANDARD HCO3 28.3 MEQ/L (22.0-26.0); ABG TOTAL CO2 33.4 MEQ/L (22.0-29.0); ABG pH (ARTERIAL) 7.363 UNITS (7.350-7.450)
[2022-09-17] MEDS: traZODone 100 MG TAB PO SCH (20:06)
[2022-09-18] VITALS (21 sets, daily range): BP systolic 91–130; BP diastolic 53–78; O2SAT 95
[2022-09-18] MEDS: IPRATROPIUM 0.5MG/ALBUTEROL 2.5MG INH SOL UD 3ML (DUONEB) NEB SCH ×6 (00:02→19:35)
[2022-09-18 00:06] LABS: ABG HCO3 35.4 MEQ/L (22.0-26.0); ABG O2 SATURATION 96.1 % (95.0-99.0); ABG PARTIAL PRESSURE O2 78.7 mmHg (75.0-100.0); ABG STANDARD HCO3 30.8 MEQ/L (22.0-26.0); ABG TOTAL CO2 37.4 MEQ/L (22.0-29.0); ABG pH (ARTERIAL) 7.362 UNITS (7.350-7.450)
[2022-09-18 00:07] LABS: ABG PARTIAL PRESSURE CO2 63.8 mmHg (35.0-45.0)
[2022-09-18] MEDS: PIPERACILLIN/TAZOBACTAM SOD 4.5 GM in D5W MINI-BAG PLUS 50 ML IV SCH ×4 (03:44→22:40)
[2022-09-18] MEDS: ENOXAPARIN 60MG/0.6ML SYRINGE (J1650 PER 10MG) SC SCH ×2 (03:44→16:54)
[2022-09-18 04:42] LABS: BASO % 0.1 % (0.0-1.0); EOS % 0.2 % (0.0-3.0); HEMATOCRIT 54.1 % (42.0-52.0); HEMOGLOBIN 16.8 g/dl (13.5-17.5); LYMPH # 0.8 10^3/uL (1.5-5.0); LYMPH % 7.7 % (24.0-44.0); MEAN CORPUSCULAR HGB CONC 31.1 g/dl (32.0-36.5); MONO # 1.1 10^3/uL (0.0-0.8); MONO % 10.8 % (2.0-8.0); NEUTROPHILS # 8.1 10^3/uL (1.5-8.5); PLATELET COUNT, AUTOMATED 118 10^3/uL (150-450); RED BLOOD COUNT 5.25 10^6/uL (4.30-6.10)
[2022-09-18 05:15] LABS: ABG BASE EXCESS 6.5 (-2.0-2.0); ABG HCO3 34.8 MEQ/L (22.0-26.0); ABG O2 SATURATION 95.7 % (95.0-99.0); ABG PARTIAL PRESSURE O2 76.1 mmHg (75.0-100.0); ABG STANDARD HCO3 30.4 MEQ/L (22.0-26.0); ABG TOTAL CO2 36.7 MEQ/L (22.0-29.0); ABG pH (ARTERIAL) 7.359 UNITS (7.350-7.450)
[2022-09-18 05:20] LABS: ABG PARTIAL PRESSURE CO2 63.1 mmHg (35.0-45.0)
[2022-09-18 05:30] LABS: BLOOD UREA NITROGEN 22 MG/DL (7-18); CALCIUM LEVEL 7.9 MG/DL (8.5-10.1); CARBON DIOXIDE LEVEL 37 MEQ/L (21-32); CHLORIDE LEVEL 101 MEQ/L (98-107); CREATININE FOR GFR 0.58 MG/DL (0.70-1.30); GLOMERULAR FILTRATION RATE > 60.0 (>56); GLUCOSE, FASTING 104 MG/DL (70-100); POTASSIUM SERUM 3.6 MEQ/L (3.5-5.1); SODIUM LEVEL 138 MEQ/L (136-145)
[2022-09-18] MEDS ORDERED: guaiFENesin SYRUP 200MG 10ML UDC PO ONE (06:00)
[2022-09-18] MEDS ORDERED: PIPERACILLIN/TAZOBACTAM SOD 4.5 GM in D5W MINI-BAG PLUS 50 ML IV SCH (07:15)
[2022-09-18] MEDS: DOCUSATE SODIUM 100MG CAPSULE PO SCH ×2 (09:00→20:35)
[2022-09-18] MEDS ORDERED: FUROSEMIDE 20 MG TAB PO SCH (09:00)
[2022-09-18] MEDS: NICOTINE 21MG/24HR 1 EA TRANSDERMAL TD SCH (09:25)
[2022-09-18] MEDS: ASPIRIN 81 MG CHEW TABLET PEG SCH (09:25)
[2022-09-18] MEDS: ATORVASTATIN 20 MG TAB PO SCH (09:25)
[2022-09-18] MEDS: predniSONE 20 MG TAB PO SCH (11:56)
[2022-09-18] MEDS: clonazePAM 0.5 MG TAB PO SCH (11:57)
[2022-09-18] MEDS: ONDANSETRON 4MG 2ML VIAL IV PRN (18:42)
[2022-09-18] MEDS: traZODone 100 MG TAB PO SCH (20:35)
[2022-09-19] VITALS (21 sets, daily range): BP systolic 91–109; BP diastolic 60–70; O2SAT 86–100
[2022-09-19] MEDS: ONDANSETRON 4MG 2ML VIAL IV PRN (01:37)
[2022-09-19] MEDS: PIPERACILLIN/TAZOBACTAM SOD 4.5 GM in D5W MINI-BAG PLUS 50 ML IV SCH ×4 (04:15→21:03)
[2022-09-19] MEDS: ENOXAPARIN 60MG/0.6ML SYRINGE (J1650 PER 10MG) SC SCH ×2 (04:16→16:08)
[2022-09-19 06:33] LABS: HEMATOCRIT 51.5 % (42.0-52.0); HEMOGLOBIN 15.9 g/dl (13.5-17.5); MEAN CORPUSCULAR HEMOGLOBIN 31.9 pg (27.0-33.0); MEAN CORPUSCULAR HGB CONC 30.9 g/dl (32.0-36.5); MEAN CORPUSCULAR VOLUME 103.4 fl (80.0-96.0); PLATELET COUNT, AUTOMATED 132 10^3/uL (150-450); RED BLOOD COUNT 4.98 10^6/uL (4.30-6.10)
[2022-09-19 07:09] LABS: ALT/SGPT 60 U/L (12-78); BLOOD UREA NITROGEN 26 MG/DL (7-18); CARBON DIOXIDE LEVEL 35 MEQ/L (21-32); CHLORIDE LEVEL 104 MEQ/L (98-107); CREATININE FOR GFR 0.54 MG/DL (0.70-1.30); GLOMERULAR FILTRATION RATE > 60.0 (>56); GLUCOSE, FASTING 118 MG/DL (70-100); POTASSIUM SERUM 3.8 MEQ/L (3.5-5.1); SODIUM LEVEL 140 MEQ/L (136-145)
[2022-09-19 07:10] LABS: ALBUMIN 2.2 GM/DL (3.2-5.2); BILIRUBIN,TOTAL 0.7 MG/DL (0.2-1.0); TOTAL PROTEIN 4.8 GM/DL (6.4-8.2)
[2022-09-19] MEDS: IPRATROPIUM 0.5MG/ALBUTEROL 2.5MG INH SOL UD 3ML (DUONEB) NEB SCH ×4 (08:12→20:06)
[2022-09-19] MEDS: ASPIRIN 81 MG CHEW TABLET PEG SCH (09:23)
[2022-09-19] MEDS: clonazePAM 0.5 MG TAB PO SCH (09:23)
[2022-09-19] MEDS: ATORVASTATIN 20 MG TAB PO SCH (09:23)
[2022-09-19] MEDS: predniSONE 20 MG TAB PO SCH (09:23)
[2022-09-19] MEDS: DOCUSATE SODIUM 100MG CAPSULE PO SCH ×2 (09:23→21:00)
[2022-09-19] MEDS: NICOTINE 21MG/24HR 1 EA TRANSDERMAL TD SCH (09:24)
[2022-09-19] MEDS: methylPREDNISolone 125MG 2ML VIAL IV SCH (21:03)
[2022-09-19] MEDS: traZODone 100 MG TAB PO SCH (21:03)
[2022-09-20] VITALS (16 sets, daily range): BP systolic 101–113; BP diastolic 62–84; O2SAT 89–97
[2022-09-20] MEDS: ENOXAPARIN 60MG/0.6ML SYRINGE (J1650 PER 10MG) SC SCH ×2 (03:52→16:25)
[2022-09-20] MEDS: PIPERACILLIN/TAZOBACTAM SOD 4.5 GM in D5W MINI-BAG PLUS 50 ML IV SCH (03:52)
[2022-09-20] MEDS: methylPREDNISolone 125MG 2ML VIAL IV SCH ×3 (03:52→20:45)
[2022-09-20 05:48] LABS: HEMATOCRIT 52.9 % (42.0-52.0); HEMOGLOBIN 16.2 g/dl (13.5-17.5); MEAN CORPUSCULAR HEMOGLOBIN 31.5 pg (27.0-33.0); MEAN CORPUSCULAR HGB CONC 30.6 g/dl (32.0-36.5); MEAN CORPUSCULAR VOLUME 102.9 fl (80.0-96.0); PLATELET COUNT, AUTOMATED 138 10^3/uL (150-450); RED BLOOD COUNT 5.14 10^6/uL (4.30-6.10); WHITE BLOOD COUNT 9.6 10^3/uL (4.0-10.0)
[2022-09-20 06:07] LABS: ABG BASE EXCESS 4.5 (-2.0-2.0); ABG HCO3 32.5 MEQ/L (22.0-26.0); ABG O2 SATURATION 94.7 % (95.0-99.0); ABG PARTIAL PRESSURE O2 68.8 mmHg (75.0-100.0); ABG STANDARD HCO3 28.4 MEQ/L (22.0-26.0); ABG TOTAL CO2 34.4 MEQ/L (22.0-29.0); ABG pH (ARTERIAL) 7.342 UNITS (7.350-7.450)
[2022-09-20 06:23] LABS: ABG PARTIAL PRESSURE CO2 61.3 mmHg (35.0-45.0)
[2022-09-20 07:02] LABS: ALBUMIN 2.4 GM/DL (3.2-5.2); ALT/SGPT 67 U/L (12-78); BILIRUBIN,TOTAL 0.8 MG/DL (0.2-1.0); BLOOD UREA NITROGEN 26 MG/DL (7-18); CALCIUM LEVEL 7.7 MG/DL (8.5-10.1); CARBON DIOXIDE LEVEL 34 MEQ/L (21-32); CHLORIDE LEVEL 104 MEQ/L (98-107); CREATININE FOR GFR 0.44 MG/DL (0.70-1.30); GLOMERULAR FILTRATION RATE > 60.0 (>56); GLUCOSE, FASTING 121 MG/DL (70-100); NT-PRO BNP 9666 PG/ML (<125); POTASSIUM SERUM 4.4 MEQ/L (3.5-5.1); SODIUM LEVEL 141 MEQ/L (136-145); TOTAL PROTEIN 4.8 GM/DL (6.4-8.2)
[2022-09-20] MEDS: IPRATROPIUM 0.5MG/ALBUTEROL 2.5MG INH SOL UD 3ML (DUONEB) NEB SCH ×4 (07:54→18:01)
[2022-09-20] MEDS: ASPIRIN 81 MG CHEW TABLET PEG SCH (08:37)
[2022-09-20] MEDS: clonazePAM 0.5 MG TAB PO SCH (08:39)
[2022-09-20] MEDS: ATORVASTATIN 20 MG TAB PO SCH (08:39)
[2022-09-20] MEDS: FUROSEMIDE 20MG/2ML VIAL (J1940) IV SCH (08:39)
[2022-09-20] MEDS: NICOTINE 21MG/24HR 1 EA TRANSDERMAL TD SCH (08:40)
[2022-09-20] MEDS: DOCUSATE SODIUM 100MG CAPSULE PO SCH ×2 (08:43→20:49)
[2022-09-20] MEDS ORDERED: ISOVUE-370 76% 100ML VIAL As Ordered ONE (17:17)
[2022-09-20] MEDS: BUDESONIDE 0.5 MG/2 ML INHALATION SUSPENSION INH SCH (18:02)
[2022-09-20] MEDS: traZODone 100 MG TAB PO SCH (20:46)
[2022-09-20] MEDS: guaiFENesin ER 600 MG TAB PO SCH (20:46)
[2022-09-21] VITALS (31 sets, daily range): BP systolic 112–138; BP diastolic 69–88; O2SAT 86–100
[2022-09-21] MEDS: methylPREDNISolone 125MG 2ML VIAL IV SCH ×3 (04:16→20:08)
[2022-09-21] MEDS: ENOXAPARIN 60MG/0.6ML SYRINGE (J1650 PER 10MG) SC SCH ×2 (04:16→16:22)
[2022-09-21 05:58] LABS: ABG BASE EXCESS 3.4 (-2.0-2.0); ABG HCO3 31.8 MEQ/L (22.0-26.0); ABG O2 SATURATION 98.1 % (95.0-99.0); ABG PARTIAL PRESSURE O2 106.1 mmHg (75.0-100.0); ABG STANDARD HCO3 27.5 MEQ/L (22.0-26.0); ABG TOTAL CO2 33.7 MEQ/L (22.0-29.0); ABG pH (ARTERIAL) 7.321 UNITS (7.350-7.450)
[2022-09-21 06:07] LABS: ABG PARTIAL PRESSURE CO2 62.9 mmHg (35.0-45.0)
[2022-09-21 06:19] LABS: HEMATOCRIT 51.3 % (42.0-52.0); HEMOGLOBIN 16.1 g/dl (13.5-17.5); MEAN CORPUSCULAR HEMOGLOBIN 31.9 pg (27.0-33.0); MEAN CORPUSCULAR HGB CONC 31.4 g/dl (32.0-36.5); MEAN CORPUSCULAR VOLUME 101.8 fl (80.0-96.0); PLATELET COUNT, AUTOMATED 146 10^3/uL (150-450); RED BLOOD COUNT 5.04 10^6/uL (4.30-6.10); WHITE BLOOD COUNT 9.3 10^3/uL (4.0-10.0)
[2022-09-21 06:52] LABS: ALBUMIN 2.5 GM/DL (3.2-5.2); ALT/SGPT 64 U/L (12-78); BILIRUBIN,TOTAL 0.7 MG/DL (0.2-1.0); BLOOD UREA NITROGEN 27 MG/DL (7-18); CALCIUM LEVEL 7.9 MG/DL (8.5-10.1); CARBON DIOXIDE LEVEL 36 MEQ/L (21-32); CHLORIDE LEVEL 104 MEQ/L (98-107); CREATININE FOR GFR 0.42 MG/DL (0.70-1.30); GLOMERULAR FILTRATION RATE > 60.0 (>56); GLUCOSE, FASTING 106 MG/DL (70-100); POTASSIUM SERUM 4.8 MEQ/L (3.5-5.1); SODIUM LEVEL 141 MEQ/L (136-145); TOTAL PROTEIN 4.9 GM/DL (6.4-8.2)
[2022-09-21] MEDS: ASPIRIN 81 MG CHEW TABLET PEG SCH (08:23)
[2022-09-21] MEDS: ATORVASTATIN 20 MG TAB PO SCH (08:23)
[2022-09-21] MEDS: PANTOPRAZOLE 40MG TAB (PROTONIX) PO SCH (08:23)
[2022-09-21] MEDS: FUROSEMIDE 20MG/2ML VIAL (J1940) IV SCH (08:23)
[2022-09-21] MEDS: guaiFENesin ER 600 MG TAB PO SCH ×2 (08:23→20:08)
[2022-09-21] MEDS: clonazePAM 0.5 MG TAB PO SCH (08:23)
[2022-09-21] MEDS: NICOTINE 21MG/24HR 1 EA TRANSDERMAL TD SCH (08:25)
[2022-09-21] MEDS: DOCUSATE SODIUM 100MG CAPSULE PO SCH ×3 (08:26→20:14)
[2022-09-21] MEDS: BUDESONIDE 0.5 MG/2 ML INHALATION SUSPENSION INH SCH ×2 (08:43→19:35)
[2022-09-21] MEDS: IPRATROPIUM 0.5MG/ALBUTEROL 2.5MG INH SOL UD 3ML (DUONEB) NEB SCH ×4 (08:43→19:35)
[2022-09-21] MEDS ORDERED: VARIBAR PUDDING 40% w/v 230ML TUBE As Ordered ONE (11:15)
[2022-09-21] MEDS ORDERED: VARIBAR NECTAR 40% w/v 240ML SUSP BTL As Ordered ONE (11:15)
[2022-09-21] MEDS ORDERED: E-Z-PAQUE 96% w/w SUSP 176GM BTL As Ordered ONE (11:15)
[2022-09-21] MEDS ORDERED: BARIUM SULFATE 700 MG TABLET (E-Z-DISK) As Ordered ONE (11:15)
[2022-09-21 17:18] LABS: CK-MB VALUE MASS 3.2 NG/ML (<3.6); MB/CK RELATIVE INDEX 4.21 (< OR =4)
[2022-09-21] MEDS: traZODone 100 MG TAB PO SCH (20:08)
[2022-09-22] VITALS (23 sets, daily range): BP systolic 103–124; BP diastolic 61–90; O2SAT 86–100
[2022-09-22] MEDS: ENOXAPARIN 60MG/0.6ML SYRINGE (J1650 PER 10MG) SC SCH (04:58)
[2022-09-22] MEDS: methylPREDNISolone 125MG 2ML VIAL IV SCH ×3 (04:58→20:44)
[2022-09-22 05:50] LABS: HEMATOCRIT 50.6 % (42.0-52.0); HEMOGLOBIN 16.2 g/dl (13.5-17.5); MEAN CORPUSCULAR HEMOGLOBIN 32.2 pg (27.0-33.0); MEAN CORPUSCULAR VOLUME 100.6 fl (80.0-96.0); PLATELET COUNT, AUTOMATED 151 10^3/uL (150-450); RED BLOOD COUNT 5.03 10^6/uL (4.30-6.10); WHITE BLOOD COUNT 8.7 10^3/uL (4.0-10.0)
[2022-09-22 06:29] LABS: ALBUMIN 2.5 GM/DL (3.2-5.2); ALT/SGPT 70 U/L (12-78); BILIRUBIN,TOTAL 0.7 MG/DL (0.2-1.0); BLOOD UREA NITROGEN 26 MG/DL (7-18); CALCIUM LEVEL 8.5 MG/DL (8.5-10.1); CARBON DIOXIDE LEVEL 38 MEQ/L (21-32); CHLORIDE LEVEL 102 MEQ/L (98-107); GLOMERULAR FILTRATION RATE > 60.0 (>56); GLUCOSE, FASTING 124 MG/DL (70-100); NT-PRO BNP 5788 PG/ML (<125); POTASSIUM SERUM 4.3 MEQ/L (3.5-5.1); SODIUM LEVEL 141 MEQ/L (136-145)
[2022-09-22] MEDS: BUDESONIDE 0.5 MG/2 ML INHALATION SUSPENSION INH SCH ×2 (07:39→20:10)
[2022-09-22] MEDS: IPRATROPIUM 0.5MG/ALBUTEROL 2.5MG INH SOL UD 3ML (DUONEB) NEB SCH ×4 (07:39→20:10)
[2022-09-22] MEDS: guaiFENesin ER 600 MG TAB PO SCH ×2 (07:50→20:44)
[2022-09-22] MEDS: PANTOPRAZOLE 40MG TAB (PROTONIX) PO SCH (07:50)
[2022-09-22] MEDS: ASPIRIN 81 MG CHEW TABLET PEG SCH (07:50)
[2022-09-22] MEDS: clonazePAM 0.5 MG TAB PO SCH (07:50)
[2022-09-22] MEDS: ATORVASTATIN 20 MG TAB PO SCH (07:50)
[2022-09-22] MEDS: FUROSEMIDE 20MG/2ML VIAL (J1940) IV SCH (07:51)
[2022-09-22] MEDS: DOCUSATE SODIUM 100MG CAPSULE PO SCH ×2 (07:51→20:47)
[2022-09-22] MEDS: NICOTINE 21MG/24HR 1 EA TRANSDERMAL TD SCH (07:53)
[2022-09-22] MEDS: APIXABAN 5 MG TAB (ELIQUIS) PO SCH (20:44)
[2022-09-22] MEDS: traZODone 100 MG TAB PO SCH (20:44)
[2022-09-23] VITALS (18 sets, daily range): BP systolic 95–133; BP diastolic 57–85; O2SAT 84–99
[2022-09-23] MEDS: methylPREDNISolone 125MG 2ML VIAL IV SCH ×3 (04:10→20:25)
[2022-09-23 06:54] LABS: HEMATOCRIT 52.9 % (42.0-52.0); HEMOGLOBIN 16.5 g/dl (13.5-17.5); MEAN CORPUSCULAR HEMOGLOBIN 31.5 pg (27.0-33.0); MEAN CORPUSCULAR HGB CONC 31.2 g/dl (32.0-36.5); PLATELET COUNT, AUTOMATED 142 10^3/uL (150-450); RED BLOOD COUNT 5.24 10^6/uL (4.30-6.10); WHITE BLOOD COUNT 10.6 10^3/uL (4.0-10.0)
[2022-09-23 07:30] LABS: ALBUMIN 2.8 GM/DL (3.2-5.2); ALT/SGPT 65 U/L (12-78); BILIRUBIN,TOTAL 0.8 MG/DL (0.2-1.0); BLOOD UREA NITROGEN 23 MG/DL (7-18); CALCIUM LEVEL 8.5 MG/DL (8.5-10.1); CARBON DIOXIDE LEVEL 39 MEQ/L (21-32); CHLORIDE LEVEL 102 MEQ/L (98-107); GLOMERULAR FILTRATION RATE > 60.0 (>56); GLUCOSE, FASTING 91 MG/DL (70-100); POTASSIUM SERUM 4.5 MEQ/L (3.5-5.1); SODIUM LEVEL 146 MEQ/L (136-145); TOTAL PROTEIN 5.1 GM/DL (6.4-8.2)
[2022-09-23] MEDS: PANTOPRAZOLE 40MG TAB (PROTONIX) PO SCH (07:34)
[2022-09-23] MEDS: ASPIRIN 81 MG CHEW TABLET PEG SCH (07:35)
[2022-09-23] MEDS: APIXABAN 5 MG TAB (ELIQUIS) PO SCH ×2 (07:35→20:27)
[2022-09-23] MEDS: clonazePAM 0.5 MG TAB PO SCH (07:35)
[2022-09-23] MEDS: guaiFENesin ER 600 MG TAB PO SCH ×2 (07:35→20:28)
[2022-09-23] MEDS: FUROSEMIDE 20MG/2ML VIAL (J1940) IV SCH (07:35)
[2022-09-23] MEDS: ATORVASTATIN 20 MG TAB PO SCH (07:35)
[2022-09-23] MEDS: NICOTINE 21MG/24HR 1 EA TRANSDERMAL TD SCH (07:36)
[2022-09-23] MEDS: IPRATROPIUM 0.5MG/ALBUTEROL 2.5MG INH SOL UD 3ML (DUONEB) NEB SCH ×4 (08:57→19:29)
[2022-09-23] MEDS: BUDESONIDE 0.5 MG/2 ML INHALATION SUSPENSION INH SCH ×2 (08:57→19:29)
[2022-09-23] MEDS: DOCUSATE SODIUM 100MG CAPSULE PO SCH ×2 (09:00→20:26)
[2022-09-23] MEDS: LevoFLOXacin IV 500 MG in IV 1 EA IV SCH (14:42)
[2022-09-23] MEDS: FORMOTEROL FUMARATE 20 MCG/2 ML INHALATION SOLUTION (PERFOROMIST) INH SCH (19:29)
[2022-09-23] MEDS: traZODone 100 MG TAB PO SCH (20:26)
[2022-09-23] MEDS: METOPROLOL TART 12.5 MG PER 1/2 TAB PO SCH (20:27)
[2022-09-24] VITALS (21 sets, daily range): BP systolic 92–143; BP diastolic 59–87; O2SAT 85–98
[2022-09-24] MEDS: methylPREDNISolone 125MG 2ML VIAL IV SCH ×3 (03:55→21:45)
[2022-09-24 05:57] LABS: HEMATOCRIT 47.8 % (42.0-52.0); HEMOGLOBIN 15.3 g/dl (13.5-17.5); MEAN CORPUSCULAR HEMOGLOBIN 31.9 pg (27.0-33.0); MEAN CORPUSCULAR VOLUME 99.8 fl (80.0-96.0); PLATELET COUNT, AUTOMATED 145 10^3/uL (150-450); RED BLOOD COUNT 4.79 10^6/uL (4.30-6.10); WHITE BLOOD COUNT 9.3 10^3/uL (4.0-10.0)
[2022-09-24 06:32] LABS: ALBUMIN 2.5 GM/DL (3.2-5.2); ALT/SGPT 57 U/L (12-78); BILIRUBIN,TOTAL 0.6 MG/DL (0.2-1.0); BLOOD UREA NITROGEN 22 MG/DL (7-18); CALCIUM LEVEL 8.4 MG/DL (8.5-10.1); CARBON DIOXIDE LEVEL 39 MEQ/L (21-32); CHLORIDE LEVEL 102 MEQ/L (98-107); GLOMERULAR FILTRATION RATE > 60.0 (>56); GLUCOSE, FASTING 134 MG/DL (70-100); POTASSIUM SERUM 4.2 MEQ/L (3.5-5.1); SODIUM LEVEL 143 MEQ/L (136-145); TOTAL PROTEIN 4.7 GM/DL (6.4-8.2)
[2022-09-24] MEDS: IPRATROPIUM 0.5MG/ALBUTEROL 2.5MG INH SOL UD 3ML (DUONEB) NEB SCH ×4 (08:00→20:00)
[2022-09-24] MEDS: DOCUSATE SODIUM 100MG CAPSULE PO SCH ×2 (09:00→21:00)
[2022-09-24] MEDS: NICOTINE 21MG/24HR 1 EA TRANSDERMAL TD SCH (09:31)
[2022-09-24] MEDS: FUROSEMIDE 20MG/2ML VIAL (J1940) IV SCH (09:31)
[2022-09-24] MEDS: ATORVASTATIN 20 MG TAB PO SCH (09:32)
[2022-09-24] MEDS: PANTOPRAZOLE 40MG TAB (PROTONIX) PO SCH (09:32)
[2022-09-24] MEDS: APIXABAN 5 MG TAB (ELIQUIS) PO SCH ×2 (09:32→21:45)
[2022-09-24] MEDS: METOPROLOL TART 12.5 MG PER 1/2 TAB PO SCH ×2 (09:33→21:45)
[2022-09-24] MEDS: ASPIRIN 81 MG CHEW TABLET PEG SCH (09:33)
[2022-09-24] MEDS: guaiFENesin ER 600 MG TAB PO SCH ×2 (09:33→21:45)
[2022-09-24] MEDS: clonazePAM 0.5 MG TAB PO SCH (09:33)
[2022-09-24] MEDS: BUDESONIDE 0.5 MG/2 ML INHALATION SUSPENSION INH SCH ×2 (11:15→19:16)
[2022-09-24] MEDS: FORMOTEROL FUMARATE 20 MCG/2 ML INHALATION SOLUTION (PERFOROMIST) INH SCH ×2 (11:15→19:16)
[2022-09-24] MEDS: LevoFLOXacin IV 500 MG in IV 1 EA IV SCH (14:13)
[2022-09-24] MEDS: traZODone 100 MG TAB PO SCH (21:45)
[2022-09-25] VITALS (22 sets, daily range): BP systolic 90–131; BP diastolic 57–87; O2SAT 87–95
[2022-09-25] MEDS: methylPREDNISolone 125MG 2ML VIAL IV SCH ×3 (05:06→20:52)
[2022-09-25] MEDS: LevoFLOXacin 750 MG TABLET PO SCH (06:01)
[2022-09-25 07:13] LABS: HEMATOCRIT 50.7 % (42.0-52.0); HEMOGLOBIN 15.5 g/dl (13.5-17.5); MEAN CORPUSCULAR HEMOGLOBIN 31.4 pg (27.0-33.0); MEAN CORPUSCULAR HGB CONC 30.6 g/dl (32.0-36.5); MEAN CORPUSCULAR VOLUME 102.8 fl (80.0-96.0); PLATELET COUNT, AUTOMATED 149 10^3/uL (150-450); RED BLOOD COUNT 4.93 10^6/uL (4.30-6.10); WHITE BLOOD COUNT 9.4 10^3/uL (4.0-10.0)
[2022-09-25] MEDS: FORMOTEROL FUMARATE 20 MCG/2 ML INHALATION SOLUTION (PERFOROMIST) INH SCH ×2 (08:05→21:02)
[2022-09-25] MEDS: IPRATROPIUM 0.5MG/ALBUTEROL 2.5MG INH SOL UD 3ML (DUONEB) NEB SCH ×4 (08:05→21:03)
[2022-09-25] MEDS: BUDESONIDE 0.5 MG/2 ML INHALATION SUSPENSION INH SCH ×2 (08:05→21:02)
[2022-09-25] MEDS: ATORVASTATIN 20 MG TAB PO SCH (08:11)
[2022-09-25] MEDS: PANTOPRAZOLE 40MG TAB (PROTONIX) PO SCH (08:11)
[2022-09-25] MEDS: clonazePAM 0.5 MG TAB PO SCH (08:11)
[2022-09-25] MEDS: ASPIRIN 81 MG CHEW TABLET PEG SCH (08:11)
[2022-09-25] MEDS: APIXABAN 5 MG TAB (ELIQUIS) PO SCH ×2 (08:11→20:52)
[2022-09-25] MEDS: METOPROLOL TART 12.5 MG PER 1/2 TAB PO SCH ×2 (08:11→20:53)
[2022-09-25] MEDS: guaiFENesin ER 600 MG TAB PO SCH ×2 (08:11→20:52)
[2022-09-25] MEDS: NICOTINE 21MG/24HR 1 EA TRANSDERMAL TD SCH (08:12)
[2022-09-25] MEDS: DOCUSATE SODIUM 100MG CAPSULE PO SCH ×2 (08:14→20:28)
[2022-09-25 08:16] LABS: ALBUMIN 2.6 GM/DL (3.2-5.2); ALT/SGPT 62 U/L (12-78); BILIRUBIN,TOTAL 0.9 MG/DL (0.2-1.0); BLOOD UREA NITROGEN 25 MG/DL (7-18); CALCIUM LEVEL 8.6 MG/DL (8.5-10.1); CARBON DIOXIDE LEVEL 40 MEQ/L (21-32); CHLORIDE LEVEL 99 MEQ/L (98-107); CREATININE FOR GFR 0.48 MG/DL (0.70-1.30); GLOMERULAR FILTRATION RATE > 60.0 (>56); GLUCOSE, FASTING 122 MG/DL (70-100); POTASSIUM SERUM 4.1 MEQ/L (3.5-5.1); SODIUM LEVEL 144 MEQ/L (136-145); TOTAL PROTEIN 4.8 GM/DL (6.4-8.2)
[2022-09-25] MEDS ORDERED: FUROSEMIDE 40MG/4ML VIAL (J1940) IV SCH (09:00)
[2022-09-25] MEDS ORDERED: MIDODRINE 5 MG TAB PO ONE (16:25)
[2022-09-25] MEDS: traZODone 100 MG TAB PO SCH (20:52)
[2022-09-26] VITALS (18 sets, daily range): BP systolic 99–147; BP diastolic 62–96; O2SAT 76–98
[2022-09-26] MEDS: methylPREDNISolone 125MG 2ML VIAL IV SCH (04:30)
[2022-09-26] MEDS: LevoFLOXacin 750 MG TABLET PO SCH (06:24)
[2022-09-26] MEDS: IPRATROPIUM 0.5MG/ALBUTEROL 2.5MG INH SOL UD 3ML (DUONEB) NEB SCH ×4 (07:27→20:26)
[2022-09-26] MEDS: BUDESONIDE 0.5 MG/2 ML INHALATION SUSPENSION INH SCH ×2 (07:27→20:37)
[2022-09-26] MEDS: FORMOTEROL FUMARATE 20 MCG/2 ML INHALATION SOLUTION (PERFOROMIST) INH SCH ×2 (07:27→20:25)
[2022-09-26] MEDS: METOPROLOL TART 12.5 MG PER 1/2 TAB PO SCH ×2 (09:21→20:50)
[2022-09-26] MEDS: clonazePAM 0.5 MG TAB PO SCH (09:21)
[2022-09-26] MEDS: DOCUSATE SODIUM 100MG CAPSULE PO SCH ×2 (09:24→20:51)
[2022-09-26] MEDS: ASPIRIN 81 MG CHEW TABLET PEG SCH (09:24)
[2022-09-26] MEDS: APIXABAN 5 MG TAB (ELIQUIS) PO SCH ×2 (09:25→20:51)
[2022-09-26] MEDS: PANTOPRAZOLE 40MG TAB (PROTONIX) PO SCH (09:25)
[2022-09-26] MEDS: ATORVASTATIN 20 MG TAB PO SCH (09:25)
[2022-09-26] MEDS: guaiFENesin ER 600 MG TAB PO SCH ×2 (09:26→20:51)
[2022-09-26] MEDS: predniSONE 20 MG TAB PO SCH ×2 (09:26→20:50)
[2022-09-26] MEDS: FUROSEMIDE 40MG/4ML VIAL (J1940) IV SCH ×2 (09:28→17:59)
[2022-09-26] MEDS: NICOTINE 21MG/24HR 1 EA TRANSDERMAL TD SCH (09:28)
[2022-09-26] MEDS ORDERED: PILL CUTTER 1 EACH XX PRN (11:15)
[2022-09-26] MEDS: traZODone 100 MG TAB PO SCH (20:52)
[2022-09-27] VITALS (10 sets, daily range): BP systolic 87–129; BP diastolic 54–83; O2SAT 88–99
[2022-09-27] MEDS: LevoFLOXacin 750 MG TABLET PO SCH (06:20)
[2022-09-27] MEDS ORDERED: BUDE0.5S6 INH (07:26)
[2022-09-27] MEDS ORDERED: PRED10TA2 PO (07:26)
[2022-09-27] MEDS ORDERED: ASPI81CH8 PEG (07:26)
[2022-09-27] MEDS ORDERED: ATOR1TAB21 PO (07:26)
[2022-09-27] MEDS ORDERED: ELIQ5TAB PO (07:26)
[2022-09-27] MEDS ORDERED: NICO21PAT TD (07:26)
[2022-09-27] MEDS ORDERED: MUCI600T31 PO (07:26)
[2022-09-27] MEDS ORDERED: PANT40TA29 PO (07:26)
[2022-09-27] MEDS ORDERED: LEVO1TAB40 PO (07:26)
[2022-09-27] MEDS ORDERED: CLON0.5T2 PO (07:26)
[2022-09-27] MEDS ORDERED: PERF20NE2 INH (07:26)
[2022-09-27] MEDS: IPRATROPIUM 0.5MG/ALBUTEROL 2.5MG INH SOL UD 3ML (DUONEB) NEB SCH ×4 (08:00→20:41)
[2022-09-27 08:12] LABS: HEMOGLOBIN 16.1 g/dl (13.5-17.5); MEAN CORPUSCULAR HEMOGLOBIN 31.5 pg (27.0-33.0); MEAN CORPUSCULAR HGB CONC 31.6 g/dl (32.0-36.5); MEAN CORPUSCULAR VOLUME 99.8 fl (80.0-96.0); PLATELET COUNT, AUTOMATED 160 10^3/uL (150-450); RED BLOOD COUNT 5.11 10^6/uL (4.30-6.10); WHITE BLOOD COUNT 12.1 10^3/uL (4.0-10.0)
[2022-09-27 08:43] LABS: BLOOD UREA NITROGEN 27 MG/DL (7-18); CALCIUM LEVEL 8.5 MG/DL (8.5-10.1); CARBON DIOXIDE LEVEL 44 MEQ/L (21-32); CHLORIDE LEVEL 98 MEQ/L (98-107); CREATININE FOR GFR 0.55 MG/DL (0.70-1.30); GLOMERULAR FILTRATION RATE > 60.0 (>56); GLUCOSE, FASTING 80 MG/DL (70-100); MAGNESIUM LEVEL 1.9 MG/DL (1.8-2.4); NT-PRO BNP 3258 PG/ML (<125); POTASSIUM SERUM 3.9 MEQ/L (3.5-5.1); SODIUM LEVEL 143 MEQ/L (136-145)
[2022-09-27] MEDS: methylPREDNISolone 40MG 1ML VIAL IV SCH ×2 (10:14→17:36)
[2022-09-27] MEDS: clonazePAM 0.5 MG TAB PO SCH (10:15)
[2022-09-27] MEDS: FUROSEMIDE 40MG/4ML VIAL (J1940) IV SCH ×2 (10:15→17:00)
[2022-09-27] MEDS: APIXABAN 5 MG TAB (ELIQUIS) PO SCH ×2 (10:15→21:02)
[2022-09-27] MEDS: ASPIRIN 81 MG CHEW TABLET PEG SCH (10:15)
[2022-09-27] MEDS: DOCUSATE SODIUM 100MG CAPSULE PO SCH ×3 (10:15→21:00)
[2022-09-27] MEDS: PANTOPRAZOLE 40MG TAB (PROTONIX) PO SCH (10:16)
[2022-09-27] MEDS: ATORVASTATIN 20 MG TAB PO SCH (10:16)
[2022-09-27] MEDS: METOPROLOL TART 12.5 MG PER 1/2 TAB PO SCH ×2 (10:16→21:00)
[2022-09-27] MEDS: guaiFENesin ER 600 MG TAB PO SCH ×2 (10:16→21:03)
[2022-09-27] MEDS: NICOTINE 21MG/24HR 1 EA TRANSDERMAL TD SCH (10:18)
[2022-09-27] MEDS: BUDESONIDE 0.5 MG/2 ML INHALATION SUSPENSION INH SCH ×2 (13:17→20:41)
[2022-09-27] MEDS: FORMOTEROL FUMARATE 20 MCG/2 ML INHALATION SOLUTION (PERFOROMIST) INH SCH ×2 (13:17→20:41)
[2022-09-27] MEDS: traZODone 100 MG TAB PO SCH (21:01)
[2022-09-28] VITALS (23 sets, daily range): BP systolic 100–122; BP diastolic 64–78; O2SAT 86–96
[2022-09-28] MEDS: methylPREDNISolone 40MG 1ML VIAL IV SCH ×3 (01:57→18:14)
[2022-09-28] MEDS: LevoFLOXacin 750 MG TABLET PO SCH (05:59)
[2022-09-28] MEDS: BUDESONIDE 0.5 MG/2 ML INHALATION SUSPENSION INH SCH ×2 (07:25→20:00)
[2022-09-28] MEDS: IPRATROPIUM 0.5MG/ALBUTEROL 2.5MG INH SOL UD 3ML (DUONEB) NEB SCH ×4 (07:25→20:00)
[2022-09-28] MEDS: FORMOTEROL FUMARATE 20 MCG/2 ML INHALATION SOLUTION (PERFOROMIST) INH SCH ×2 (07:25→20:00)
[2022-09-28] MEDS: DOCUSATE SODIUM 100MG CAPSULE PO SCH ×2 (09:00→20:12)
[2022-09-28] MEDS: METOPROLOL TART 12.5 MG PER 1/2 TAB PO SCH ×2 (09:00→20:14)
[2022-09-28] MEDS: FUROSEMIDE 40MG/4ML VIAL (J1940) IV SCH ×2 (09:00→17:00)
[2022-09-28 09:10] LABS: ABG BASE EXCESS 9.3 (-2.0-2.0); ABG HCO3 36.5 MEQ/L (22.0-26.0); ABG O2 SATURATION 92.1 % (95.0-99.0); ABG PARTIAL PRESSURE CO2 57.9 mmHg (35.0-45.0); ABG PARTIAL PRESSURE O2 60.6 mmHg (75.0-100.0); ABG STANDARD HCO3 32.9 MEQ/L (22.0-26.0); ABG TOTAL CO2 38.2 MEQ/L (22.0-29.0); ABG pH (ARTERIAL) 7.417 UNITS (7.350-7.450)
[2022-09-28] MEDS: ATORVASTATIN 20 MG TAB PO SCH (09:26)
[2022-09-28] MEDS: APIXABAN 5 MG TAB (ELIQUIS) PO SCH ×2 (09:27→20:12)
[2022-09-28] MEDS: guaiFENesin ER 600 MG TAB PO SCH ×2 (09:27→20:12)
[2022-09-28] MEDS: PANTOPRAZOLE 40MG TAB (PROTONIX) PO SCH (09:27)
[2022-09-28] MEDS: ASPIRIN 81 MG CHEW TABLET PEG SCH (09:27)
[2022-09-28] MEDS: clonazePAM 0.5 MG TAB PO SCH (09:28)
[2022-09-28] MEDS: NICOTINE 21MG/24HR 1 EA TRANSDERMAL TD SCH (09:33)
[2022-09-28 10:20] LABS: BLOOD UREA NITROGEN 22 MG/DL (7-18); CALCIUM LEVEL 8.4 MG/DL (8.5-10.1); CARBON DIOXIDE LEVEL 37 MEQ/L (21-32); CHLORIDE LEVEL 101 MEQ/L (98-107); GLOMERULAR FILTRATION RATE > 60.0 (>56); GLUCOSE, FASTING 124 MG/DL (70-100); POTASSIUM SERUM 4.3 MEQ/L (3.5-5.1); SODIUM LEVEL 142 MEQ/L (136-145)
[2022-09-28] MEDS: traZODone 100 MG TAB PO SCH (20:12)
[2022-09-29] VITALS (15 sets, daily range): BP systolic 97–116; BP diastolic 60–78; O2SAT 88–97
[2022-09-29] MEDS: methylPREDNISolone 40MG 1ML VIAL IV SCH ×3 (01:06→17:48)
[2022-09-29] MEDS: ALBUTEROL SULFATE 2.5 MG/0.5 ML INH NEB SOLN NEB PRN (01:20)
[2022-09-29] MEDS: IPRATROPIUM 0.5MG/ALBUTEROL 2.5MG INH SOL UD 3ML (DUONEB) NEB SCH ×4 (08:00→20:34)
[2022-09-29] MEDS: FORMOTEROL FUMARATE 20 MCG/2 ML INHALATION SOLUTION (PERFOROMIST) INH SCH ×2 (08:28→20:34)
[2022-09-29] MEDS: BUDESONIDE 0.5 MG/2 ML INHALATION SUSPENSION INH SCH ×2 (08:28→20:34)
[2022-09-29] MEDS: DOCUSATE SODIUM 100MG CAPSULE PO SCH ×2 (09:00→20:47)
[2022-09-29] MEDS: ATORVASTATIN 20 MG TAB PO SCH (09:09)
[2022-09-29] MEDS: PANTOPRAZOLE 40MG TAB (PROTONIX) PO SCH (09:09)
[2022-09-29] MEDS: guaiFENesin ER 600 MG TAB PO SCH ×2 (09:09→20:46)
[2022-09-29] MEDS: METOPROLOL TART 12.5 MG PER 1/2 TAB PO SCH ×2 (09:10→20:47)
[2022-09-29] MEDS: clonazePAM 0.5 MG TAB PO SCH (09:10)
[2022-09-29] MEDS: ASPIRIN 81 MG CHEW TABLET PEG SCH (09:10)
[2022-09-29] MEDS: APIXABAN 5 MG TAB (ELIQUIS) PO SCH ×2 (09:10→20:46)
[2022-09-29] MEDS: FUROSEMIDE 40MG/4ML VIAL (J1940) IV SCH ×2 (09:11→16:44)
[2022-09-29] MEDS: NICOTINE 21MG/24HR 1 EA TRANSDERMAL TD SCH (09:12)
[2022-09-29] MEDS: traZODone 100 MG TAB PO SCH (20:46)
[2022-09-30] MEDS: methylPREDNISolone 40MG 1ML VIAL IV SCH ×3 (02:20→18:15)
[2022-09-30 05:37] VITALS: BP 100/60
[2022-09-30] MEDS: IPRATROPIUM 0.5MG/ALBUTEROL 2.5MG INH SOL UD 3ML (DUONEB) NEB SCH ×4 (07:16→20:03)
[2022-09-30] MEDS: FORMOTEROL FUMARATE 20 MCG/2 ML INHALATION SOLUTION (PERFOROMIST) INH SCH ×2 (07:16→20:09)
[2022-09-30] MEDS: BUDESONIDE 0.5 MG/2 ML INHALATION SUSPENSION INH SCH ×2 (07:16→20:03)
[2022-09-30] MEDS: FUROSEMIDE 40MG/4ML VIAL (J1940) IV SCH ×2 (09:00→17:00)
[2022-09-30] MEDS: guaiFENesin ER 600 MG TAB PO SCH ×2 (09:00→20:28)
[2022-09-30] MEDS: METOPROLOL TART 12.5 MG PER 1/2 TAB PO SCH ×2 (09:00→20:29)
[2022-09-30] MEDS ORDERED: MAG SULF 1GM/100ML (MAG RUN) 1 GM in IV 1 EA IV ONE (10:00)
[2022-09-30] MEDS: APIXABAN 5 MG TAB (ELIQUIS) PO SCH ×2 (10:42→20:28)
[2022-09-30] MEDS: PANTOPRAZOLE 40MG TAB (PROTONIX) PO SCH (10:42)
[2022-09-30] MEDS: clonazePAM 0.5 MG TAB PO SCH (10:42)
[2022-09-30] MEDS: ATORVASTATIN 20 MG TAB PO SCH (10:42)
[2022-09-30] MEDS: DOCUSATE SODIUM 100MG CAPSULE PO SCH ×3 (10:43→20:31)
[2022-09-30] MEDS: ASPIRIN 81 MG CHEW TABLET PEG SCH (10:43)
[2022-09-30] MEDS: NICOTINE 21MG/24HR 1 EA TRANSDERMAL TD SCH (10:44)
[2022-09-30] MEDS: MAG SULF 1GM/100ML (MAG RUN) 1 GM in IV 1 EA IV SCH (12:07)
[2022-09-30 12:45] VITALS: O2SAT 88
[2022-09-30] MEDS ORDERED: CALCIUM GLUCONATE 1,000 MG in D5W MINI-BAG PLUS 100 ML IV ONE (14:00)
[2022-09-30 18:00] VITALS: BP 107/71
[2022-09-30 18:43] VITALS: O2SAT 88
[2022-09-30 18:49] LABS: CK-MB VALUE MASS 2.7 NG/ML (<3.6); MAGNESIUM LEVEL 2.3 MG/DL (1.8-2.4); MB/CK RELATIVE INDEX 11.74 (< OR =4); POTASSIUM SERUM 4.3 MEQ/L (3.5-5.1)
[2022-09-30] MEDS: traZODone 100 MG TAB PO SCH (20:28)
[2022-09-30 20:29] VITALS: BP 108/70
[2022-09-30 22:00] VITALS: BP 107/68
[2022-10-01 00:03] VITALS: O2SAT 96
[2022-10-01] MEDS: methylPREDNISolone 40MG 1ML VIAL IV SCH ×3 (02:04→17:38)
[2022-10-01 02:08] VITALS: O2SAT 93
[2022-10-01] MEDS: ALBUTEROL SULFATE 2.5 MG/0.5 ML INH NEB SOLN NEB PRN (04:53)
[2022-10-01 05:12] VITALS: BP 86/60
[2022-10-01 06:32] VITALS: BP 98/66
[2022-10-01] MEDS: IPRATROPIUM 0.5MG/ALBUTEROL 2.5MG INH SOL UD 3ML (DUONEB) NEB SCH ×4 (08:00→21:09)
[2022-10-01] MEDS: BUDESONIDE 0.5 MG/2 ML INHALATION SUSPENSION INH SCH ×2 (08:33→21:09)
[2022-10-01] MEDS: FORMOTEROL FUMARATE 20 MCG/2 ML INHALATION SOLUTION (PERFOROMIST) INH SCH ×2 (08:33→20:00)
[2022-10-01] MEDS: clonazePAM 0.5 MG TAB PO SCH (10:42)
[2022-10-01] MEDS: NICOTINE 21MG/24HR 1 EA TRANSDERMAL TD SCH (10:42)
[2022-10-01] MEDS: DOCUSATE SODIUM 100MG CAPSULE PO SCH ×2 (10:43→21:00)
[2022-10-01] MEDS: APIXABAN 5 MG TAB (ELIQUIS) PO SCH ×2 (10:43→21:53)
[2022-10-01] MEDS: ASPIRIN 81 MG CHEW TABLET PEG SCH (10:43)
[2022-10-01] MEDS: ATORVASTATIN 20 MG TAB PO SCH (10:43)
[2022-10-01] MEDS: PANTOPRAZOLE 40MG TAB (PROTONIX) PO SCH (10:44)
[2022-10-01] MEDS: guaiFENesin ER 600 MG TAB PO SCH ×2 (10:44→21:53)
[2022-10-01 14:00] VITALS: BP 115/76
[2022-10-01 19:44] VITALS: BP 125/83; O2SAT 92
[2022-10-01] MEDS: traZODone 100 MG TAB PO SCH (21:53)
[2022-10-02] MEDS: methylPREDNISolone 40MG 1ML VIAL IV SCH ×3 (01:55→21:52)
[2022-10-02 05:18] VITALS: BP 108/71
[2022-10-02] MEDS: IPRATROPIUM 0.5MG/ALBUTEROL 2.5MG INH SOL UD 3ML (DUONEB) NEB SCH ×4 (07:53→21:11)
[2022-10-02] MEDS: FORMOTEROL FUMARATE 20 MCG/2 ML INHALATION SOLUTION (PERFOROMIST) INH SCH ×2 (07:53→21:11)
[2022-10-02] MEDS: BUDESONIDE 0.5 MG/2 ML INHALATION SUSPENSION INH SCH ×2 (07:53→21:11)
[2022-10-02 08:29] LABS: BASO % 0.1 % (0.0-1.0); HEMATOCRIT 46.5 % (42.0-52.0); HEMOGLOBIN 14.7 g/dl (13.5-17.5); LYMPH # 0.5 10^3/uL (1.5-5.0); LYMPH % 4.4 % (24.0-44.0); MEAN CORPUSCULAR HGB CONC 31.6 g/dl (32.0-36.5); MEAN CORPUSCULAR VOLUME 98.1 fl (80.0-96.0); MONO # 0.7 10^3/uL (0.0-0.8); MONO % 6.2 % (2.0-8.0); NEUTROPHILS # 9.9 10^3/uL (1.5-8.5); NEUTROPHILS % 88.7 % (36.0-66.0); PLATELET COUNT, AUTOMATED 144 10^3/uL (150-450); RED BLOOD COUNT 4.74 10^6/uL (4.30-6.10); WHITE BLOOD COUNT 11.2 10^3/uL (4.0-10.0)
[2022-10-02 09:01] LABS: ALBUMIN 2.8 GM/DL (3.2-5.2); ALT/SGPT 68 U/L (12-78); BILIRUBIN,TOTAL 0.5 MG/DL (0.2-1.0); BLOOD UREA NITROGEN 21 MG/DL (7-18); CALCIUM LEVEL 8.7 MG/DL (8.5-10.1); CARBON DIOXIDE LEVEL 35 MEQ/L (21-32); CHLORIDE LEVEL 102 MEQ/L (98-107); CREATININE FOR GFR 0.45 MG/DL (0.70-1.30); GLOMERULAR FILTRATION RATE > 60.0 (>56); GLUCOSE, FASTING 99 MG/DL (70-100); POTASSIUM SERUM 4.4 MEQ/L (3.5-5.1); SODIUM LEVEL 140 MEQ/L (136-145)
[2022-10-02] MEDS: NICOTINE 21MG/24HR 1 EA TRANSDERMAL TD SCH (09:59)
[2022-10-02] MEDS: guaiFENesin ER 600 MG TAB PO SCH ×2 (09:59→21:51)
[2022-10-02] MEDS: ATORVASTATIN 20 MG TAB PO SCH (09:59)
[2022-10-02] MEDS: APIXABAN 5 MG TAB (ELIQUIS) PO SCH ×2 (09:59→21:51)
[2022-10-02] MEDS: ASPIRIN 81 MG CHEW TABLET PEG SCH (09:59)
[2022-10-02] MEDS: clonazePAM 0.5 MG TAB PO SCH (09:59)
[2022-10-02] MEDS: PANTOPRAZOLE 40MG TAB (PROTONIX) PO SCH (09:59)
[2022-10-02] MEDS: DOCUSATE SODIUM 100MG CAPSULE PO SCH ×2 (10:00→21:00)
[2022-10-02] MEDS: FUROSEMIDE 20 MG TAB PO SCH (12:02)
[2022-10-02 14:00] VITALS: BP 90/56
[2022-10-02 19:53] VITALS: BP 124/85
[2022-10-02 21:46] VITALS: O2SAT 88
[2022-10-02] MEDS: traZODone 100 MG TAB PO SCH (21:51)
[2022-10-03] MEDS: IPRATROPIUM 0.5MG/ALBUTEROL 2.5MG INH SOL UD 3ML (DUONEB) NEB SCH ×8 (03:42→23:53)
[2022-10-03 06:00] VITALS: BP 92/54
[2022-10-03] MEDS: BUDESONIDE 0.5 MG/2 ML INHALATION SUSPENSION INH SCH ×2 (08:45→20:08)
[2022-10-03] MEDS: FORMOTEROL FUMARATE 20 MCG/2 ML INHALATION SOLUTION (PERFOROMIST) INH SCH ×2 (08:45→20:08)
[2022-10-03 09:00] VITALS: O2SAT 90
[2022-10-03] MEDS: DOCUSATE SODIUM 100MG CAPSULE PO SCH ×3 (09:00→20:31)
[2022-10-03] MEDS: ASPIRIN 81 MG CHEW TABLET PEG SCH (10:13)
[2022-10-03] MEDS: methylPREDNISolone 40MG 1ML VIAL IV SCH ×2 (10:13→20:36)
[2022-10-03] MEDS: ATORVASTATIN 20 MG TAB PO SCH (10:15)
[2022-10-03] MEDS: APIXABAN 5 MG TAB (ELIQUIS) PO SCH ×2 (10:15→20:36)
[2022-10-03] MEDS: clonazePAM 0.5 MG TAB PO SCH (10:15)
[2022-10-03] MEDS: guaiFENesin ER 600 MG TAB PO SCH ×2 (10:15→20:36)
[2022-10-03] MEDS: NICOTINE 21MG/24HR 1 EA TRANSDERMAL TD SCH (10:15)
[2022-10-03] MEDS: FUROSEMIDE 20 MG TAB PO SCH (10:16)
[2022-10-03] MEDS: PANTOPRAZOLE 40MG TAB (PROTONIX) PO SCH (10:16)
[2022-10-03 14:00] VITALS: BP 112/72
[2022-10-03] MEDS: traZODone 100 MG TAB PO SCH (20:36)
[2022-10-03 22:08] VITALS: BP 109/78
[2022-10-04] MEDS: IPRATROPIUM 0.5MG/ALBUTEROL 2.5MG INH SOL UD 3ML (DUONEB) NEB SCH ×3 (03:47→11:25)
[2022-10-04 04:33] VITALS: O2SAT 92
[2022-10-04 05:44] VITALS: BP 91/59
[2022-10-04] MEDS: FORMOTEROL FUMARATE 20 MCG/2 ML INHALATION SOLUTION (PERFOROMIST) INH SCH (07:24)
[2022-10-04] MEDS: BUDESONIDE 0.5 MG/2 ML INHALATION SUSPENSION INH SCH (07:24)
[2022-10-04] MEDS: DOCUSATE SODIUM 100MG CAPSULE PO SCH (09:00)
[2022-10-04] MEDS: NICOTINE 21MG/24HR 1 EA TRANSDERMAL TD SCH (09:24)
[2022-10-04] MEDS: ASPIRIN 81 MG CHEW TABLET PEG SCH (09:24)
[2022-10-04] MEDS: methylPREDNISolone 40MG 1ML VIAL IV SCH (09:24)
[2022-10-04] MEDS: guaiFENesin ER 600 MG TAB PO SCH (09:25)
[2022-10-04] MEDS: clonazePAM 0.5 MG TAB PO SCH (09:25)
[2022-10-04] MEDS: ATORVASTATIN 20 MG TAB PO SCH (09:25)
[2022-10-04] MEDS: PANTOPRAZOLE 40MG TAB (PROTONIX) PO SCH (09:25)
[2022-10-04] MEDS: APIXABAN 5 MG TAB (ELIQUIS) PO SCH (09:25)
[2022-10-04] MEDS: FUROSEMIDE 20 MG TAB PO SCH (09:25)
[2022-10-04] MEDS ORDERED: PULM0.5S NEB (11:14)
[2022-10-04] MEDS ORDERED: IPRA0.00 IN (11:14)
[2022-10-04] MEDS ORDERED: PERF20NE2 INH (11:14)
[2022-10-04] MEDS ORDERED: FURO20TA2 PO (11:14)
[2022-10-04] MEDS ORDERED: METO25TA PO (11:16)
[2022-10-04] MEDS ORDERED: AMOX875T2 PO (11:16)
[2022-10-04] MEDS ORDERED: PRED20TA PO (11:16)
[2022-10-04] MEDS ORDERED: SYMB16INH INH (12:29)
[2022-10-04 14:00] VITALS: BP 127/77
[2022-10-04] MEDS ORDERED: ATRO0.063 INH (15:23)
== END 2022-10-04 15:52 | disposition home or self-care (01) | DRG 189 ==
LOC: M ED 14:34 → M ED INP 21:24 → ENRESERV 09-13 10:37 → M PCU 09-13 11:52 → M ICU 09-14 09:04 → M PCU 09-18 21:32 → M MSPAV 09-29 15:02
PROVIDERS: ADMIT Family Medicine; ATTEND Internal Medicine Nephrology
DX: J96.21 Acute and chronic respiratory failure with hypoxia (principal); J18.9 Pneumonia, unspecified organism; I50.33 Acute on chronic diastolic (congestive) heart failure; I24.8 Other forms of acute ischemic heart disease; N17.9 Acute kidney failure, unspecified; R64 Cachexia; E87.1 Hypo-osmolality and hyponatremia; I82.813 Embolism and thrombosis of superficial veins of lower extremities, bilateral; E46 Unspecified protein-calorie malnutrition; Z68.1 Body mass index [BMI] 19.9 or less, adult; I82.412 Acute embolism and thrombosis of left femoral vein; L03.115 Cellulitis of right lower limb; J43.2 Centrilobular emphysema; I25.10 Atherosclerotic heart disease of native coronary artery without angina pectoris; G47.33 Obstructive sleep apnea (adult) (pediatric); F43.10 Post-traumatic stress disorder, unspecified; F31.9 Bipolar disorder, unspecified; M48.00 Spinal stenosis, site unspecified; F41.9 Anxiety disorder, unspecified; K21.9 Gastro-esophageal reflux disease without esophagitis; F17.200 Nicotine dependence, unspecified, uncomplicated; R91.8 Other nonspecific abnormal finding of lung field; I11.0 Hypertensive heart disease with heart failure; D75.1 Secondary polycythemia; J96.22 Acute and chronic respiratory failure with hypercapnia; I27.29 Other secondary pulmonary hypertension; J34.2 Deviated nasal septum; E87.5 Hyperkalemia; G40.909 Epilepsy, unspecified, not intractable, without status epilepticus; R73.9 Hyperglycemia, unspecified; R13.10 Dysphagia, unspecified; Z99.81 Dependence on supplemental oxygen; Z90.49 Acquired absence of other specified parts of digestive tract; Z79.899 Other long term (current) drug therapy; Z20.822 Contact with and (suspected) exposure to COVID-19

== ENCOUNTER → 2022-10-23 | Outpatient (REF) | payer MEDICARE, MEDICAID ==
[~2022-10-23] MED LIST changes: +ALBU8.5H INH; +AMOX875T2 PO; +ASPI81CH8 PEG; +ATOR1TAB21 PO; +BUDE0.5S6 INH; +CLON0.5T2 PO; +COMBAER6; +ELIQ5TAB PO; +FURO20TA2 PO; +IPRA0.00 IN; +KLON0.5T PO; +LEVO1TAB40 PO; +METO25TA PO; +MUCI600T31 PO; +NICO21PAT TD; +PANT40TA29 PO; +PERF20NE2 INH; +PRED20TA PO; +PULM0.5S NEB; +SYMB16INH INH; +TRAZ-257 PO; +med rec comment
[2022-10-23 18:06] LABS: MAGNESIUM LEVEL 1.6 MG/DL (1.8-2.4)
[2022-10-23 18:07] LABS: ALBUMIN 3.6 G/DL (3.2-5.2); ALKALINE PHOSPHATASE 131 U/L (46-116); ALT/SGPT 39 U/L (7.0-40); AST/SGOT 20 U/L (<34); BILIRUBIN,TOTAL 0.6 MG/DL (0.3-1.2); BLOOD UREA NITROGEN 13 MG/DL (9-23); CALCIUM LEVEL 9.3 MG/DL (8.5-10.1); CARBON DIOXIDE LEVEL 35 MMOL/L (20-31); CHLORIDE LEVEL 94 MMOL/L (98-107); CREATININE FOR GFR 0.51 MG/DL (0.70-1.30); GLOMERULAR FILTRATION RATE > 60.0 (>56); GLUCOSE, FASTING 91 MG/DL (60-100); POTASSIUM SERUM 4.2 MMOL/L (3.5-5.1); SODIUM LEVEL 139 MMOL/L (136-145); TOTAL PROTEIN 6.2 G/DL (5.7-8.2)
== END ==
LOC: M LAB REF 16:49
PROVIDERS: ATTEND Family Medicine Addiction Medicine
DX: E83.42 Hypomagnesemia (principal)

== ENCOUNTER 2022-12-13 11:28 | Inpatient (IN) | payer MEDICARE, MEDICAID ==
[~2022-12-13] VITALS: Ht 175.3 cm; Wt 66.0 kg
[2022-12-13] VITALS (13 sets, daily range): BP systolic 146–153; BP diastolic 95; O2SAT 78–99
[2022-12-13 12:05] LABS: ABG BASE EXCESS -1.9 (-2.0-2.0); ABG HCO3 22.8 MEQ/L (22.0-26.0); ABG O2 SATURATION 99.4 % (95.0-99.0); ABG PARTIAL PRESSURE CO2 39.1 mmHg (35.0-45.0); ABG PARTIAL PRESSURE O2 161.2 mmHg (75.0-100.0); ABG STANDARD HCO3 22.9 MEQ/L (22.0-26.0); ABG pH (ARTERIAL) 7.383 UNITS (7.350-7.450)
[2022-12-13 12:09] LABS: BASO # 0.1 10^3/uL (0.0-0.2); BASO % 1.4 % (0.0-1.0); EOS # 0.1 10^3/uL (0.0-0.5); HEMATOCRIT 55.2 % (42.0-52.0); HEMOGLOBIN 17.4 g/dl (13.5-17.5); LYMPH # 1.5 10^3/uL (1.5-5.0); LYMPH % 18.4 % (24.0-44.0); MEAN CORPUSCULAR HEMOGLOBIN 31.1 pg (27.0-33.0); MEAN CORPUSCULAR HGB CONC 31.5 g/dl (32.0-36.5); MEAN CORPUSCULAR VOLUME 98.7 fl (80.0-96.0); MONO # 0.8 10^3/uL (0.0-0.8); MONO % 9.9 % (2.0-8.0); NEUTROPHILS # 5.6 10^3/uL (1.5-8.5); NEUTROPHILS % 69.1 % (36.0-66.0); PLATELET COUNT, AUTOMATED 244 10^3/uL (150-450); RED BLOOD COUNT 5.59 10^6/uL (4.30-6.10); WHITE BLOOD COUNT 8.1 10^3/uL (4.0-10.0)
[2022-12-13 12:19] LABS: INR 0.98; PROTHROMBIN TIME 13.2 SECONDS (12.5-14.5)
[2022-12-13 12:33] LABS: ALBUMIN 3.5 G/DL (3.2-5.2); ALKALINE PHOSPHATASE 100 U/L (46-116); ALT/SGPT 24 U/L (7.0-40); AST/SGOT 25 U/L (<34); BILIRUBIN,DIRECT 0.3 MG/DL (<0.4); BILIRUBIN,TOTAL 0.7 MG/DL (0.3-1.2); BLOOD UREA NITROGEN 15 MG/DL (9-23); CALCIUM LEVEL 9.1 MG/DL (8.5-10.1); CARBON DIOXIDE LEVEL 31 MMOL/L (20-31); CHLORIDE LEVEL 105 MMOL/L (98-107); CPK CREATINE PHOSPHOKINASE 124 U/L (46-171); CREATININE FOR GFR 0.68 MG/DL (0.70-1.30); GLOMERULAR FILTRATION RATE > 60.0 (>56); GLUCOSE, FASTING 89 MG/DL (60-100); MB/CK RELATIVE INDEX 4.03 (< OR =4); POTASSIUM SERUM 4.2 MMOL/L (3.5-5.1); SODIUM LEVEL 142 MMOL/L (136-145); TOTAL PROTEIN 6.2 G/DL (5.7-8.2)
[2022-12-13 12:35] LABS: THYROID STIMULATING HORMONE 3.625 uIU/ML (0.55-4.78); THYROXINE (T4) 8.3 UG/DL (4.5-10.9)
[2022-12-13] MEDS ORDERED: FUROSEMIDE 40MG/4ML VIAL IV ONE (12:40)
[2022-12-13] MEDS ORDERED: methylPREDNISolone 125MG 2ML VIAL IV ONE (12:40)
[2022-12-13] MEDS ORDERED: MAG SULF 1GM/100ML (MAG RUN) 1 GM in IV 1 EA IV ONE (13:05)
[2022-12-13 13:21] LABS: CK-MB VALUE MASS 4.7 NG/ML (<3.6)
[2022-12-13 13:27] LABS: MB/CK RELATIVE INDEX 4.23 (< OR =4)
[2022-12-13] MEDS: COMBIVENT RESPIMAT 100-20MCG INHALER 4GM INH SCH ×2 (13:36→14:29)
[2022-12-13] MEDS ORDERED: COMBAER6 INH (14:17)
[2022-12-13] MEDS ORDERED: ASPI81TA26 PO (14:19)
[2022-12-13] MEDS ORDERED: HOME MED LIST COMPLETE! XX SCH (14:20)
[2022-12-13] MEDS: IPRATROPIUM 0.5MG/ALBUTEROL 2.5MG INH SOL UD 3ML (DUONEB) NEB SCH ×3 (16:00→23:45)
[2022-12-13] MEDS: SODIUM CHLORIDE HYPERTONIC 3% 15ML NEB SOL INH SCH ×3 (16:00→23:49)
[2022-12-13] MEDS: FUROSEMIDE 40MG/4ML VIAL IV SCH (17:43)
[2022-12-13 18:46] LABS: ABG BASE EXCESS 1.2 (-2.0-2.0); ABG HCO3 26.3 MEQ/L (22.0-26.0); ABG O2 SATURATION 95.7 % (95.0-99.0); ABG PARTIAL PRESSURE CO2 43.1 mmHg (35.0-45.0); ABG PARTIAL PRESSURE O2 82.2 mmHg (75.0-100.0); ABG STANDARD HCO3 25.4 MEQ/L (22.0-26.0); ABG TOTAL CO2 27.6 MEQ/L (22.0-29.0); ABG pH (ARTERIAL) 7.403 UNITS (7.350-7.450)
[2022-12-13] MEDS: POTASSIUM CHLORIDE 10MEQ SR TABLET PO SCH (20:27)
[2022-12-13] MEDS: guaiFENesin ER 600 MG TAB PO SCH (20:28)
[2022-12-13] MEDS: traZODone 100 MG TAB PO SCH (23:07)
[2022-12-14] VITALS (17 sets, daily range): BP systolic 102–150; BP diastolic 54–90; O2SAT 88–98
[2022-12-14] MEDS ORDERED: ACETAMINOPHEN TAB 650MG DOSE (2X325MG) PO ONE (01:00)
[2022-12-14] MEDS: SODIUM CHLORIDE HYPERTONIC 3% 15ML NEB SOL INH SCH ×5 (04:01→20:00)
[2022-12-14] MEDS: IPRATROPIUM 0.5MG/ALBUTEROL 2.5MG INH SOL UD 3ML (DUONEB) NEB SCH ×5 (04:01→20:23)
[2022-12-14 05:14] LABS: VENOUS BASE EXCESS 1.6 (-2.0-2.0); VENOUS HCO3 27.1 MEQ/L (23.0-27.0); VENOUS O2 SATURATION 99.1 % (60.0-80.0); VENOUS PARTIAL PRESSURE CO2 45.2 mmHg (38.0-50.0); VENOUS PARTIAL PRESSURE O2 141.4 mmHg (30.0-50.0); VENOUS PH 7.395 UNITS (7.330-7.430); VENOUS STANDARD HCO3 25.9 MEQ/L; VENOUS TOTAL CO2 28.4 MEQ/L (24.0-28.0)
[2022-12-14 05:20] LABS: BASO % 0.3 % (0.0-1.0); HEMATOCRIT 47.1 % (42.0-52.0); LYMPH # 0.9 10^3/uL (1.5-5.0); LYMPH % 14.9 % (24.0-44.0); MEAN CORPUSCULAR HEMOGLOBIN 31.4 pg (27.0-33.0); MEAN CORPUSCULAR HGB CONC 32.3 g/dl (32.0-36.5); MEAN CORPUSCULAR VOLUME 97.3 fl (80.0-96.0); MONO % 16.2 % (2.0-8.0); NEUTROPHILS # 4.3 10^3/uL (1.5-8.5); NEUTROPHILS % 68.3 % (36.0-66.0); PLATELET COUNT, AUTOMATED 219 10^3/uL (150-450); RED BLOOD COUNT 4.84 10^6/uL (4.30-6.10); WHITE BLOOD COUNT 6.2 10^3/uL (4.0-10.0)
[2022-12-14 05:31] LABS: HEMOGLOBIN 15.2 g/dl (13.5-17.5)
[2022-12-14 05:55] LABS: MAGNESIUM LEVEL 1.7 MG/DL (1.8-2.4)
[2022-12-14 05:57] LABS: BLOOD UREA NITROGEN 17 MG/DL (9-23); CALCIUM LEVEL 7.9 MG/DL (8.5-10.1); CARBON DIOXIDE LEVEL 32 MMOL/L (20-31); CHLORIDE LEVEL 106 MMOL/L (98-107); CREATININE FOR GFR 0.66 MG/DL (0.70-1.30); GLOMERULAR FILTRATION RATE > 60.0 (>56); GLUCOSE, FASTING 122 MG/DL (60-100); POTASSIUM SERUM 4.2 MMOL/L (3.5-5.1); SODIUM LEVEL 143 MMOL/L (136-145)
[2022-12-14] MEDS: POTASSIUM CHLORIDE 10MEQ SR TABLET PO SCH ×2 (09:11→20:14)
[2022-12-14] MEDS: MAG SULF 1GM/100ML (MAG RUN) 1 GM in IV 1 EA IV SCH ×2 (09:11→10:19)
[2022-12-14] MEDS: guaiFENesin ER 600 MG TAB PO SCH ×2 (09:11→20:14)
[2022-12-14] MEDS: ENOXAPARIN 40MG/0.4ML SYRINGE (J1650 PER 10MG) SC SCH (09:12)
[2022-12-14] MEDS: FUROSEMIDE 40MG/4ML VIAL IV SCH ×2 (09:13→16:03)
[2022-12-14] MEDS: clonazePAM 0.5 MG TAB PO PRN (09:25)
[2022-12-14] MEDS: traZODone 100 MG TAB PO SCH (20:14)
[2022-12-14] MEDS: ACETAMINOPHEN TAB 650MG DOSE (2X325MG) PO PRN (20:37)
[2022-12-15] VITALS (15 sets, daily range): BP systolic 108–137; BP diastolic 65–82; O2SAT 90–98
[2022-12-15] MEDS: IPRATROPIUM 0.5MG/ALBUTEROL 2.5MG INH SOL UD 3ML (DUONEB) NEB SCH ×7 (00:34→23:11)
[2022-12-15] MEDS: SODIUM CHLORIDE HYPERTONIC 3% 15ML NEB SOL INH SCH ×7 (03:04→23:12)
[2022-12-15 05:43] LABS: BASO # 0.1 10^3/uL (0.0-0.2); BASO % 0.9 % (0.0-1.0); EOS # 0.1 10^3/uL (0.0-0.5); EOS % 1.1 % (0.0-3.0); HEMATOCRIT 50.7 % (42.0-52.0); HEMOGLOBIN 15.8 g/dl (13.5-17.5); LYMPH # 1.4 10^3/uL (1.5-5.0); MEAN CORPUSCULAR HEMOGLOBIN 31.3 pg (27.0-33.0); MEAN CORPUSCULAR HGB CONC 31.2 g/dl (32.0-36.5); MEAN CORPUSCULAR VOLUME 100.6 fl (80.0-96.0); MONO # 1.1 10^3/uL (0.0-0.8); MONO % 12.9 % (2.0-8.0); NEUTROPHILS # 5.7 10^3/uL (1.5-8.5); NEUTROPHILS % 67.9 % (36.0-66.0); PLATELET COUNT, AUTOMATED 209 10^3/uL (150-450); RED BLOOD COUNT 5.04 10^6/uL (4.30-6.10); WHITE BLOOD COUNT 8.4 10^3/uL (4.0-10.0)
[2022-12-15 06:07] LABS: BLOOD UREA NITROGEN 21 MG/DL (9-23); CALCIUM LEVEL 8.2 MG/DL (8.5-10.1); CARBON DIOXIDE LEVEL 36 MMOL/L (20-31); CHLORIDE LEVEL 103 MMOL/L (98-107); CREATININE FOR GFR 0.67 MG/DL (0.70-1.30); GLOMERULAR FILTRATION RATE > 60.0 (>56); GLUCOSE, FASTING 100 MG/DL (60-100); MAGNESIUM LEVEL 1.7 MG/DL (1.8-2.4); POTASSIUM SERUM 4.5 MMOL/L (3.5-5.1); SODIUM LEVEL 144 MMOL/L (136-145)
[2022-12-15] MEDS: guaiFENesin ER 600 MG TAB PO SCH ×2 (09:13→20:17)
[2022-12-15] MEDS: ENOXAPARIN 40MG/0.4ML SYRINGE (J1650 PER 10MG) SC SCH (09:13)
[2022-12-15] MEDS: MAGNESIUM OXIDE 400MG TAB (MAG-OX) PO SCH ×2 (09:13→20:17)
[2022-12-15] MEDS: POTASSIUM CHLORIDE 10MEQ SR TABLET PO SCH ×2 (09:13→20:17)
[2022-12-15] MEDS: MAG SULF 1GM/100ML (MAG RUN) 1 GM in IV 1 EA IV SCH ×2 (09:14→11:03)
[2022-12-15] MEDS: FUROSEMIDE 40MG/4ML VIAL IV SCH (09:14)
[2022-12-15] MEDS: methylPREDNISolone 40MG 1ML VIAL IV SCH ×2 (09:22→17:53)
[2022-12-15] MEDS: AZITHROMYCIN 250MG TABLET PO SCH (09:22)
[2022-12-15] MEDS: ACETYLCYSTEINE 20% 4 ML VIAL (200MG/ML) INH SCH ×2 (12:48→19:58)
[2022-12-15] MEDS: traZODone 100 MG TAB PO SCH (20:17)
[2022-12-16] VITALS (18 sets, daily range): BP systolic 103–121; BP diastolic 59–79; O2SAT 89–99
[2022-12-16] MEDS: methylPREDNISolone 40MG 1ML VIAL IV SCH ×3 (01:24→20:52)
[2022-12-16] MEDS: IPRATROPIUM 0.5MG/ALBUTEROL 2.5MG INH SOL UD 3ML (DUONEB) NEB SCH ×6 (03:05→23:45)
[2022-12-16] MEDS: SODIUM CHLORIDE HYPERTONIC 3% 15ML NEB SOL INH SCH ×2 (03:06→08:00)
[2022-12-16 05:42] LABS: VENOUS PH 7.386 UNITS (7.330-7.430)
[2022-12-16 05:43] LABS: VENOUS BASE EXCESS 3.2 (-2.0-2.0); VENOUS HCO3 29.5 MEQ/L (23.0-27.0); VENOUS O2 SATURATION 99.3 % (60.0-80.0); VENOUS PARTIAL PRESSURE CO2 50.3 mmHg (38.0-50.0); VENOUS PARTIAL PRESSURE O2 179.6 mmHg (30.0-50.0); VENOUS STANDARD HCO3 27.3 MEQ/L
[2022-12-16 05:51] LABS: BASO % 0.1 % (0.0-1.0); HEMATOCRIT 55.1 % (42.0-52.0); LYMPH # 0.5 10^3/uL (1.5-5.0); LYMPH % 3.9 % (24.0-44.0); MEAN CORPUSCULAR HEMOGLOBIN 31.1 pg (27.0-33.0); MEAN CORPUSCULAR HGB CONC 30.9 g/dl (32.0-36.5); MEAN CORPUSCULAR VOLUME 100.9 fl (80.0-96.0); MONO # 0.3 10^3/uL (0.0-0.8); NEUTROPHILS % 93.6 % (36.0-66.0); PLATELET COUNT, AUTOMATED 233 10^3/uL (150-450); RED BLOOD COUNT 5.46 10^6/uL (4.30-6.10); WHITE BLOOD COUNT 13.9 10^3/uL (4.0-10.0)
[2022-12-16 06:26] LABS: BLOOD UREA NITROGEN 17 MG/DL (9-23); CALCIUM LEVEL 9.6 MG/DL (8.5-10.1); CARBON DIOXIDE LEVEL 33 MMOL/L (20-31); CHLORIDE LEVEL 100 MMOL/L (98-107); GLOMERULAR FILTRATION RATE > 60.0 (>56); GLUCOSE, FASTING 111 MG/DL (60-100); POTASSIUM SERUM 5.5 MMOL/L (3.5-5.1); SODIUM LEVEL 139 MMOL/L (136-145)
[2022-12-16] MEDS: ACETYLCYSTEINE 20% 4 ML VIAL (200MG/ML) INH SCH ×2 (08:27→19:19)
[2022-12-16] MEDS: POTASSIUM CHLORIDE 10MEQ SR TABLET PO SCH (09:00)
[2022-12-16] MEDS: guaiFENesin ER 600 MG TAB PO SCH ×2 (09:24→20:52)
[2022-12-16] MEDS: MAGNESIUM OXIDE 400MG TAB (MAG-OX) PO SCH ×2 (09:24→20:52)
[2022-12-16] MEDS: AZITHROMYCIN 250MG TABLET PO SCH (09:24)
[2022-12-16] MEDS: FUROSEMIDE 40MG/4ML VIAL IV SCH (09:25)
[2022-12-16] MEDS: ENOXAPARIN 40MG/0.4ML SYRINGE (J1650 PER 10MG) SC SCH (09:25)
[2022-12-16] MEDS: traZODone 100 MG TAB PO SCH (20:53)
[2022-12-17] VITALS (27 sets, daily range): BP systolic 101–137; BP diastolic 57–77; O2SAT 87–98
[2022-12-17] MEDS: IPRATROPIUM 0.5MG/ALBUTEROL 2.5MG INH SOL UD 3ML (DUONEB) NEB SCH ×6 (04:00→23:41)
[2022-12-17 05:38] LABS: BASO % 0.1 % (0.0-1.0); HEMATOCRIT 56.2 % (42.0-52.0); HEMOGLOBIN 17.6 g/dl (13.5-17.5); LYMPH # 0.6 10^3/uL (1.5-5.0); LYMPH % 5.1 % (24.0-44.0); MEAN CORPUSCULAR HGB CONC 31.3 g/dl (32.0-36.5); MEAN CORPUSCULAR VOLUME 99.1 fl (80.0-96.0); MONO # 1.1 10^3/uL (0.0-0.8); MONO % 8.6 % (2.0-8.0); NEUTROPHILS # 10.5 10^3/uL (1.5-8.5); NEUTROPHILS % 85.9 % (36.0-66.0); PLATELET COUNT, AUTOMATED 254 10^3/uL (150-450); RED BLOOD COUNT 5.67 10^6/uL (4.30-6.10); WHITE BLOOD COUNT 12.2 10^3/uL (4.0-10.0)
[2022-12-17 05:53] LABS: BLOOD UREA NITROGEN 27 MG/DL (9-23); CALCIUM LEVEL 9.5 MG/DL (8.5-10.1); CARBON DIOXIDE LEVEL 36 MMOL/L (20-31); CHLORIDE LEVEL 100 MMOL/L (98-107); CREATININE FOR GFR 0.57 MG/DL (0.70-1.30); GLOMERULAR FILTRATION RATE > 60.0 (>56); GLUCOSE, FASTING 115 MG/DL (60-100); MAGNESIUM LEVEL 1.9 MG/DL (1.8-2.4); SODIUM LEVEL 139 MMOL/L (136-145)
[2022-12-17 08:23] LABS: VENOUS BASE EXCESS 4.4 (-2.0-2.0); VENOUS HCO3 31.6 MEQ/L (23.0-27.0); VENOUS O2 SATURATION 99.6 % (60.0-80.0); VENOUS PARTIAL PRESSURE CO2 55.1 mmHg (38.0-50.0); VENOUS PARTIAL PRESSURE O2 222.8 mmHg (30.0-50.0); VENOUS PH 7.377 UNITS (7.330-7.430); VENOUS STANDARD HCO3 28.5 MEQ/L; VENOUS TOTAL CO2 33.3 MEQ/L (24.0-28.0)
[2022-12-17] MEDS: FUROSEMIDE 40MG/4ML VIAL IV SCH (08:27)
[2022-12-17] MEDS: methylPREDNISolone 40MG 1ML VIAL IV SCH ×2 (08:27→20:57)
[2022-12-17] MEDS: guaiFENesin ER 600 MG TAB PO SCH ×2 (08:28→20:58)
[2022-12-17] MEDS: AZITHROMYCIN 250MG TABLET PO SCH (08:28)
[2022-12-17] MEDS: MAGNESIUM OXIDE 400MG TAB (MAG-OX) PO SCH ×2 (08:28→20:58)
[2022-12-17] MEDS: ENOXAPARIN 40MG/0.4ML SYRINGE (J1650 PER 10MG) SC SCH (08:28)
[2022-12-17] MEDS: ACETAMINOPHEN TAB 650MG DOSE (2X325MG) PO PRN (08:38)
[2022-12-17] MEDS: ACETYLCYSTEINE 20% 4 ML VIAL (200MG/ML) INH SCH ×2 (08:51→19:37)
[2022-12-17] MEDS ORDERED: IPRA0.00 NEB (10:59)
[2022-12-17] MEDS ORDERED: TREL1AER PO (10:59)
[2022-12-17] MEDS ORDERED: BUDE0.5S6 INH (10:59)
[2022-12-17] MEDS ORDERED: FORM20VI2 IH (11:05)
[2022-12-17] MEDS: clonazePAM 0.5 MG TAB PO PRN (11:46)
[2022-12-17] MEDS: VENLAFAXINE **XR** 75MG CAPSULE PO SCH (12:12)
[2022-12-17] MEDS: rOPINIRole 0.25 MG TAB(REQUIP) PO SCH (20:57)
[2022-12-17] MEDS: traZODone 50 MG TAB PO SCH (20:58)
[2022-12-18] VITALS (24 sets, daily range): BP systolic 113–141; BP diastolic 64–87; O2SAT 78–97
[2022-12-18] MEDS: IPRATROPIUM 0.5MG/ALBUTEROL 2.5MG INH SOL UD 3ML (DUONEB) NEB SCH ×6 (04:00→23:25)
[2022-12-18 04:57] LABS: VENOUS BASE EXCESS 5.2 (-2.0-2.0); VENOUS HCO3 33.3 MEQ/L (23.0-27.0); VENOUS O2 SATURATION 99.6 % (60.0-80.0); VENOUS PARTIAL PRESSURE CO2 60.2 mmHg (38.0-50.0); VENOUS PH 7.361 UNITS (7.330-7.430); VENOUS STANDARD HCO3 29.2 MEQ/L; VENOUS TOTAL CO2 35.2 MEQ/L (24.0-28.0)
[2022-12-18 05:05] LABS: BASO % 0.1 % (0.0-1.0); HEMATOCRIT 57.3 % (42.0-52.0); LYMPH # 0.5 10^3/uL (1.5-5.0); LYMPH % 5.4 % (24.0-44.0); MEAN CORPUSCULAR HEMOGLOBIN 31.2 pg (27.0-33.0); MEAN CORPUSCULAR HGB CONC 31.4 g/dl (32.0-36.5); MEAN CORPUSCULAR VOLUME 99.3 fl (80.0-96.0); MONO # 0.6 10^3/uL (0.0-0.8); MONO % 5.7 % (2.0-8.0); NEUTROPHILS # 8.6 10^3/uL (1.5-8.5); NEUTROPHILS % 88.4 % (36.0-66.0); PLATELET COUNT, AUTOMATED 253 10^3/uL (150-450); RED BLOOD COUNT 5.77 10^6/uL (4.30-6.10); WHITE BLOOD COUNT 9.7 10^3/uL (4.0-10.0)
[2022-12-18 05:31] LABS: BLOOD UREA NITROGEN 34 MG/DL (9-23); CARBON DIOXIDE LEVEL 34 MMOL/L (20-31); CHLORIDE LEVEL 100 MMOL/L (98-107); GLOMERULAR FILTRATION RATE > 60.0 (>56); GLUCOSE, FASTING 107 MG/DL (60-100); MAGNESIUM LEVEL 1.8 MG/DL (1.8-2.4); POTASSIUM SERUM 4.4 MMOL/L (3.5-5.1); SODIUM LEVEL 140 MMOL/L (136-145)
[2022-12-18] MEDS: ACETYLCYSTEINE 20% 4 ML VIAL (200MG/ML) INH SCH ×2 (06:07→19:16)
[2022-12-18] MEDS: BUDESONIDE 0.5 MG/2 ML INHALATION SUSPENSION INH SCH ×2 (08:00→19:17)
[2022-12-18] MEDS: FORMOTEROL FUMARATE 20 MCG/2 ML INHALATION SOLUTION (PERFOROMIST) INH SCH ×2 (08:00→19:20)
[2022-12-18] MEDS: FUROSEMIDE 40MG/4ML VIAL IV SCH (09:05)
[2022-12-18] MEDS: ENOXAPARIN 40MG/0.4ML SYRINGE (J1650 PER 10MG) SC SCH (09:06)
[2022-12-18] MEDS: VENLAFAXINE **XR** 75MG CAPSULE PO SCH (09:06)
[2022-12-18] MEDS: MAGNESIUM OXIDE 400MG TAB (MAG-OX) PO SCH ×2 (09:06→20:54)
[2022-12-18] MEDS: AZITHROMYCIN 250MG TABLET PO SCH (09:06)
[2022-12-18] MEDS: methylPREDNISolone 40MG 1ML VIAL IV SCH (09:12)
[2022-12-18] MEDS: guaiFENesin 200 MG TAB PO SCH ×4 (10:26→20:53)
[2022-12-18] MEDS: cefTRIAXone SOD 1 GM in D5W MINI-BAG PLUS 50 ML IV SCH (12:58)
[2022-12-18] MEDS: rOPINIRole 0.25 MG TAB(REQUIP) PO SCH (20:54)
[2022-12-18] MEDS: traZODone 50 MG TAB PO SCH (20:54)
[2022-12-19] VITALS (18 sets, daily range): BP systolic 118–148; BP diastolic 65–86; O2SAT 85–96
[2022-12-19] MEDS: guaiFENesin 200 MG TAB PO SCH ×6 (01:32→20:42)
[2022-12-19] MEDS: IPRATROPIUM 0.5MG/ALBUTEROL 2.5MG INH SOL UD 3ML (DUONEB) NEB SCH ×5 (03:12→19:37)
[2022-12-19 05:26] LABS: HEMATOCRIT 55.7 % (42.0-52.0); HEMOGLOBIN 17.5 g/dl (13.5-17.5); MEAN CORPUSCULAR HEMOGLOBIN 31.1 pg (27.0-33.0); MEAN CORPUSCULAR HGB CONC 31.4 g/dl (32.0-36.5); MEAN CORPUSCULAR VOLUME 99.1 fl (80.0-96.0); PLATELET COUNT, AUTOMATED 215 10^3/uL (150-450); RED BLOOD COUNT 5.62 10^6/uL (4.30-6.10); WHITE BLOOD COUNT 10.2 10^3/uL (4.0-10.0)
[2022-12-19 05:52] LABS: BLOOD UREA NITROGEN 33 MG/DL (9-23); CALCIUM LEVEL 8.7 MG/DL (8.5-10.1); CARBON DIOXIDE LEVEL 33 MMOL/L (20-31); CHLORIDE LEVEL 101 MMOL/L (98-107); CREATININE FOR GFR 0.52 MG/DL (0.70-1.30); GLOMERULAR FILTRATION RATE > 60.0 (>56); GLUCOSE, FASTING 83 MG/DL (60-100); MAGNESIUM LEVEL 1.7 MG/DL (1.8-2.4); POTASSIUM SERUM 4.8 MMOL/L (3.5-5.1); SODIUM LEVEL 141 MMOL/L (136-145)
[2022-12-19 05:53] LABS: ATYPICAL LYMPH 11 % (0-5); LYMPHOCYTES 18 % (16-44); MONOCYTES 12 % (0-5); NEUTROPHILS 59 % (28-66); PLATELET ESTIMATE NORMAL (NORMAL)
[2022-12-19 05:54] LABS: HYPOCHROMASIA 1+
[2022-12-19 05:55] LABS: TOXIC VACUOLATION 1+
[2022-12-19] MEDS ORDERED: MAGNESIUM OXIDE 400MG TAB (MAG-OX) PO ONE (07:15)
[2022-12-19] MEDS: ACETYLCYSTEINE 20% 4 ML VIAL (200MG/ML) INH SCH (08:00)
[2022-12-19] MEDS: BUDESONIDE 0.5 MG/2 ML INHALATION SUSPENSION INH SCH ×2 (08:15→19:37)
[2022-12-19] MEDS: FORMOTEROL FUMARATE 20 MCG/2 ML INHALATION SOLUTION (PERFOROMIST) INH SCH ×2 (08:15→19:37)
[2022-12-19] MEDS: methylPREDNISolone 40MG 1ML VIAL IV SCH (09:11)
[2022-12-19] MEDS: FUROSEMIDE 40MG/4ML VIAL IV SCH (09:11)
[2022-12-19] MEDS: ENOXAPARIN 40MG/0.4ML SYRINGE (J1650 PER 10MG) SC SCH (09:12)
[2022-12-19] MEDS: AZITHROMYCIN 250MG TABLET PO SCH (09:12)
[2022-12-19] MEDS: VENLAFAXINE **XR** 75MG CAPSULE PO SCH (09:13)
[2022-12-19] MEDS: MAGNESIUM OXIDE 400MG TAB (MAG-OX) PO SCH ×2 (09:14→20:10)
[2022-12-19] MEDS: cefTRIAXone SOD 1 GM in D5W MINI-BAG PLUS 50 ML IV SCH (12:23)
[2022-12-19] MEDS: traZODone 50 MG TAB PO SCH (20:10)
[2022-12-19] MEDS: rOPINIRole 0.25 MG TAB(REQUIP) PO SCH (20:10)
[2022-12-20] VITALS (11 sets, daily range): BP systolic 116–134; BP diastolic 66–86; O2SAT 91–97
[2022-12-20] MEDS: guaiFENesin 200 MG TAB PO SCH ×4 (00:40→13:00)
[2022-12-20] MEDS: IPRATROPIUM 0.5MG/ALBUTEROL 2.5MG INH SOL UD 3ML (DUONEB) NEB SCH ×4 (04:00→11:09)
[2022-12-20 05:55] LABS: BASO % 0.3 % (0.0-1.0); EOS # 0.1 10^3/uL (0.0-0.5); EOS % 0.5 % (0.0-3.0); HEMOGLOBIN 17.6 g/dl (13.5-17.5); LYMPH # 1.8 10^3/uL (1.5-5.0); LYMPH % 18.2 % (24.0-44.0); MEAN CORPUSCULAR HEMOGLOBIN 31.3 pg (27.0-33.0); MEAN CORPUSCULAR VOLUME 97.7 fl (80.0-96.0); MONO # 1.5 10^3/uL (0.0-0.8); MONO % 15.5 % (2.0-8.0); NEUTROPHILS # 6.5 10^3/uL (1.5-8.5); NEUTROPHILS % 65.1 % (36.0-66.0); PLATELET COUNT, AUTOMATED 205 10^3/uL (150-450); RED BLOOD COUNT 5.63 10^6/uL (4.30-6.10)
[2022-12-20 06:02] LABS: BLOOD UREA NITROGEN 28 MG/DL (9-23); CALCIUM LEVEL 8.8 MG/DL (8.5-10.1); CARBON DIOXIDE LEVEL 34 MMOL/L (20-31); CHLORIDE LEVEL 100 MMOL/L (98-107); CREATININE FOR GFR 0.47 MG/DL (0.70-1.30); GLOMERULAR FILTRATION RATE > 60.0 (>56); GLUCOSE, FASTING 79 MG/DL (60-100); MAGNESIUM LEVEL 1.8 MG/DL (1.8-2.4); SODIUM LEVEL 138 MMOL/L (136-145)
[2022-12-20] MEDS: methylPREDNISolone 40MG 1ML VIAL IV SCH (09:21)
[2022-12-20] MEDS: FUROSEMIDE 40MG/4ML VIAL IV SCH (09:21)
[2022-12-20] MEDS: ENOXAPARIN 40MG/0.4ML SYRINGE (J1650 PER 10MG) SC SCH ×3 (09:22→09:28)
[2022-12-20] MEDS: MAGNESIUM OXIDE 400MG TAB (MAG-OX) PO SCH (09:25)
[2022-12-20] MEDS: VENLAFAXINE **XR** 75MG CAPSULE PO SCH (09:25)
[2022-12-20] MEDS ORDERED: LASI20TA3 PO (09:30)
[2022-12-20] MEDS ORDERED: VENL75CA47 PO (09:30)
[2022-12-20] MEDS ORDERED: TRAZ-252 PO (09:30)
[2022-12-20] MEDS ORDERED: PRED10PA2 PO (09:30)
[2022-12-20] MEDS ORDERED: ALBU8.5H INH ×2 (09:30→09:42)
[2022-12-20] MEDS ORDERED: ROPI0.253 PO (09:30)
[2022-12-20] MEDS ORDERED: MAGN400T2 PO (09:30)
[2022-12-20] MEDS ORDERED: AZIT-12 PO (09:42)
[2022-12-20] MEDS ORDERED: PRED20TA PO (09:42)
[2022-12-20] MEDS ORDERED: LASI40TA9 PO (09:42)
[2022-12-20] MEDS ORDERED: IPRA0.00 INH (09:42)
[2022-12-20] MEDS: BUDESONIDE 0.5 MG/2 ML INHALATION SUSPENSION INH SCH (11:09)
[2022-12-20] MEDS: FORMOTEROL FUMARATE 20 MCG/2 ML INHALATION SOLUTION (PERFOROMIST) INH SCH (11:09)
[2022-12-20] MEDS: cefTRIAXone SOD 1 GM in D5W MINI-BAG PLUS 50 ML IV SCH (13:18)
[2022-12-20] MEDS: clonazePAM 0.5 MG TAB PO PRN (13:19)
== END 2022-12-20 15:03 | disposition home health service (06) | DRG 291 ==
LOC: M ED 11:28 → M ED INP 14:54 → ENRESERV 15:34 → M PCU 16:44
PROVIDERS: ADMIT Internal Medicine Nephrology; ATTEND Family Medicine
DX: I50.33 Acute on chronic diastolic (congestive) heart failure (principal); J96.21 Acute and chronic respiratory failure with hypoxia; J96.22 Acute and chronic respiratory failure with hypercapnia; E87.1 Hypo-osmolality and hyponatremia; E46 Unspecified protein-calorie malnutrition; R64 Cachexia; J44.0 Chronic obstructive pulmonary disease with (acute) lower respiratory infection; J84.10 Pulmonary fibrosis, unspecified; I27.29 Other secondary pulmonary hypertension; F41.9 Anxiety disorder, unspecified; F43.10 Post-traumatic stress disorder, unspecified; R13.10 Dysphagia, unspecified; R91.8 Other nonspecific abnormal finding of lung field; G47.33 Obstructive sleep apnea (adult) (pediatric); J42 Unspecified chronic bronchitis; M48.00 Spinal stenosis, site unspecified; K21.9 Gastro-esophageal reflux disease without esophagitis; F32.A Depression, unspecified; I50.813 Acute on chronic right heart failure; Z79.82 Long term (current) use of aspirin; Z79.899 Other long term (current) drug therapy; Z99.81 Dependence on supplemental oxygen; Z86.718 Personal history of other venous thrombosis and embolism

== ENCOUNTER → 2024-03-10 | Outpatient (REF) | payer MEDICARE, MEDICAID ==
[~2024-03-10] MED LIST changes: +ASPI81TA26 PO; +AZIT-12 PO; +FORM20VI2 IH; +IPRA0.00 INH; -KLON0.5T PO; +KLON0.5T8 PO; +LASI20TA3 PO; +LASI40TA9 PO; +MAGN400T2 PO; +PRED10PA2 PO; +ROPI5TAB19 PO; +TRAZ-252 PO; +TREL1AER PO; -VENL225T25 PO; +VENL225T32 PO; +VENL75CA47 PO
[2024-03-10 18:48] LABS: HEMATOCRIT 48.3 % (42.0-52.0); MEAN CORPUSCULAR HEMOGLOBIN 32.7 pg (27.0-33.0); MEAN CORPUSCULAR HGB CONC 33.1 g/dl (32.0-36.5); MEAN CORPUSCULAR VOLUME 98.6 fl (80.0-96.0); PLATELET COUNT, AUTOMATED 212 10^3/uL (150-450); WHITE BLOOD COUNT 10.5 10^3/uL (4.0-10.0)
[2024-03-10 19:15] LABS: HEMOGLOBIN A1c 4.7 % (4.0-6.0); IRON (FE) 75 UG/DL (65-175)
[2024-03-10 19:17] LABS: ALKALINE PHOSPHATASE 117 U/L (46-116); ALT/SGPT 28 U/L (7.0-40); AST/SGOT 23 U/L (<34); BILIRUBIN,TOTAL 0.5 MG/DL (0.3-1.2); BLOOD UREA NITROGEN 19 MG/DL (9-23); CALCIUM LEVEL 9.3 MG/DL (8.5-10.1); CARBON DIOXIDE LEVEL 38 MMOL/L (20-31); CHLORIDE LEVEL 96 MMOL/L (98-107); CREATININE FOR GFR 0.65 MG/DL (0.70-1.30); GLUCOSE, FASTING 76 MG/DL (60-100); HDL CHOLESTEROL 71.8 MG/DL (>40); MAGNESIUM LEVEL 2.2 MG/DL (1.8-2.4); POTASSIUM SERUM 3.9 MMOL/L (3.5-5.1); SODIUM LEVEL 141 MMOL/L (136-145); TOTAL PROTEIN 6.8 G/DL (5.7-8.2); TRIGLYCERIDES LEVEL 105 MG/DL (<150)
[2024-03-10 19:19] LABS: VITAMIN B12 LEVEL 433 PG/ML (211-911)
[2024-03-10 20:18] LABS: LDL CHOLESTEROL 123.2 MG/DL (<100)
[2024-03-11 06:02] LABS: CHOLESTEROL LEVEL 216 MG/DL (<200); NON-HDL-C 144.2 MG/DL
[2024-03-11 06:03] LABS: ALBUMIN 4.2 G/DL (3.2-5.2)
== END ==
LOC: M LAB REF 17:57
PROVIDERS: ATTEND Physician Assistant
DX: J96.11 Chronic respiratory failure with hypoxia (principal); I50.22 Chronic systolic (congestive) heart failure; G60.3 Idiopathic progressive neuropathy; M54.50 Low back pain, unspecified; Z00.01 Encounter for general adult medical examination with abnormal findings